=== PATIENT | female | born 1990 | race Caucasian/White ===

== ENCOUNTER 2016-12-12 14:50 | Emergency (ER) | payer MEDICAID, OTHER ==
[2016-12-12 14:58] VITALS: BP 115/77
--- NOTE | 2016-12-12 15:00 | ER Document Report ---
ED Medical Screen (RME) - General Stated Complaint: POSSIBLE SEIZURE Time seen by provider: 14:58 Mode of Arrival: Ambulatory Information source: Patient Notes: 26-year-old female presents to ED for numbness and tingling to her hands and face with a history of seizures noncompliant with her seizure medicines due to the way it feels. Tapping feeling in her head for 2 weeks. And she felt weak today which brought her into the emergency room. Patient states she's had a hysterectomy I have greeted and performed a rapid initial assessment of this patient. A comprehensive ED assessment and evaluation of the patient, analysis of test results and completion of medical decision making process will be conducted by an additional ED providers. TRAVEL OUTSIDE OF THE [place] IN LAST 30 DAYS: No - Related Data Allergies/Adverse Reactions: nitrofurantoin [From Macrobid] Allergy (Mild, Verified 12/12/16 14:58) Generalized Itching nitrofurantoin macrocrystalline [From Macrobid] Allergy (Mild, Verified 14:58) Generalized Itching Penicillins Allergy (Mild, Verified 12/12/16 14:58) Generalized Itching promethazine HCl [From Phenergan] Allergy (Mild, Verified 12/12/16 14:58) Generalized Itching amoxicillin [Amoxicillin] Allergy (Verified 12/12/16 14:58) Generalized Itching Past Medical History - Social History Chew tobacco use (# tins/day): No Frequency of alcohol use: None Drug Abuse: None Neurological Medical History: Reports: Hx Migraine, Hx Seizures Renal/ Medical History: Reports: Hx Kidney Stones, Hx Ovarian Cysts - 2012. Denies: Hx Peritoneal Dialysis GI Medical History: Reports: Hx Gastroesophageal Reflux Disease, Hx Irritable Bowel - for 5 years Psychiatric Medical History: Reports: Hx Anxiety, Hx Depression, Hx Post Traumatic Stress Disorder - severe panic disorder Past Surgical History: Reports: Hx Section - x2, Hx Cholecystectomy - 2010, Hx Hysterectomy, Hx Kidney (Renal Surgery) - nephrostomy tube, Hx Tonsillectomy - 13 yo - Immunizations Immunizations up to date: Yes Hx Diphtheria, Pertussis, Tetanus Vaccination: Yes
[2016-12-12 15:33] LABS: ABSOLUTE BASOPHILS # (AUTO) 0.1 10^3/uL (0.0-0.2); ABSOLUTE EOSINOPHILS # (AUTO) 0.3 10^3/uL (0.0-0.6); ABSOLUTE LYMPHOCYTES (AUTO) 2.9 10^3/uL (0.5-4.7); ABSOLUTE MONOCYTES (AUTO) 0.4 10^3/uL (0.1-1.4); BASOPHILS % (AUTO) 0.7 % (0-2); EOSINOPHILS % (AUTO) 4.2 % (0-6); HEMATOCRIT 44.7 % (36.0-47.0); HEMOGLOBIN 15.1 g/dL (12.0-15.5); HGB HCT DIFFERENCE 0.6; LYMPHOCYTES % (AUTO) 37.1 % (13-45); MEAN CORPUSCULAR HEMOGLOBIN 32.2 pg (27.0-33.4); MEAN CORPUSCULAR HGB CONC 33.9 g/dL (32.0-36.0); MEAN CORPUSCULAR VOLUME 95 fl (80-97); MONOCYTES % (AUTO) 5.7 % (3-13); RED CELL DISTRIBUTION WIDTH 13.1 % (11.5-14.0); SEGMENTED NEUTROPHILS % (AUTO) 52.3 % (42-78); WHITE BLOOD COUNT 7.7 10^3/uL (4.0-10.5)
[2016-12-12 15:53] LABS: ALANINE AMINOTRANSFERASE 42 U/L (9-52); ALBUMIN 4.8 g/dL (3.5-5.0); ALKALINE PHOSPHATASE 80 U/L (38-126); ANION GAP 12 (5-19); ASPARTATE AMINO TRANSFERASE 33 U/L (14-36); BILIRUBIN,TOTAL 0.3 mg/dL (0.2-1.3); BLOOD UREA NITROGEN 14 mg/dL (7-20); CALCIUM 10.2 mg/dL (8.4-10.2); CARBON DIOXIDE 30 mmol/L (22-30); CHLORIDE 102 mmol/L (98-107); CREATININE RESULT 0.83 mg/dL (0.52-1.25); GLUCOSE 80 mg/dL (75-110); LIPASE 185.9 U/L (23-300); POTASSIUM 4.7 mmol/L (3.6-5.0); SODIUM 143.6 mmol/L (137-145); TOTAL PROTEIN 7.5 g/dL (6.3-8.2)
[2016-12-12] MEDS ORDERED: ACETAMINOPHEN 325 MG TABLET PO ONE (16:09)
[2016-12-12 17:20] LABS: APPEARANCE,URINE SLIGHTLY-CLOUDY; BILIRUBIN,URINE NEGATIVE (NEGATIVE); GLUCOSE, URINE NEGATIVE (NEGATIVE); KETONES,URINE NEGATIVE (NEGATIVE); LEUKOCYTE ESTERASE,URINE NEGATIVE (NEGATIVE); NITRITE,URINE NEGATIVE (NEGATIVE); PROTEIN,URINE NEGATIVE (NEGATIVE); UROBILINOGEN,URINE NEGATIVE mg/dL (<2.0)
--- NOTE | 2016-12-12 18:09 | ER Document Report ---
Addendum entered and electronically signed by ARTURO DIAZ PA-C 12/12/16 19: 10: ED General - General Chief Complaint: Headache Stated Complaint: POSSIBLE SEIZURE Mode of Arrival: Ambulatory Notes: Patient is a 26-year-old female who presents emergency Department complaining of headache, numbness and tingling and lethargy for the past 4 weeks that has gotten worse over the past 2 weeks. She states her main complaint today is her headache that she feels is a sharp stabbing pain al over but the worst on her right taco eof her head with associated neck pain. Denies any light sensitivity , sound sensitivity or nausea or vomiting. She states that she does have a history of seizure disorder but cannot specify what type. She states that she has been noncompliant with her Depakote because she said it made her feel irritable. She has not been compliant with primary care or neurology follow-up. She is previously been treated emergency department for pseudoseizure and questionable medication overdose Otherwise past medical history is significant for anxiety Previous surgical procedures for hysterectomy TRAVEL OUTSIDE OF THE [place] IN LAST 30 DAYS: No - Related Data Allergies/Adverse Reactions: nitrofurantoin [From Macrobid] Allergy (Mild, Verified 12/12/16 14:58) Generalized Itching nitrofurantoin macrocrystalline [From Macrobid] Allergy (Mild, Verified 14:58) Generalized Itching Penicillins Allergy (Mild, Verified 12/12/16 14:58) Generalized Itching promethazine HCl [From Phenergan] Allergy (Mild, Verified 12/12/16 14:58) Generalized Itching amoxicillin [Amoxicillin] Allergy (Verified 12/12/16 14:58) Generalized Itching Course - Re-evaluation Re-evalutation: 12/12/16 19:02 Patient is a 26-year-old female who is hemodynamically stable, no acute distress and afebrile. Her complaints today are chronic and through further discussion with the patient finding that she has not been taking her gabapentin , hydroxyzine and Effexor as prescribed and is been taking them in different points throughout the day. She states that she has noticed her symptoms of drowsiness when she takes her hydroxyzine in the AM before class. Patient has been educated that he headache is likely due to tension consistent with he complaint of neck pain and tenderness to palaption on exam. Encouraged to follow up with neurology and PCP - Vital Signs Vital signs: Temp Pulse Resp BP Pulse Ox 98.0 F 85 18 115/77 99 12/12/16 14:56 12/12/16 14:56 12/12/16 14:56 12/12/16 14:56 12/12/16 14:56 - Laboratory Result Diagrams: 12/12/16 15:10 12/12/16 15:10 Physical Exam - Vital signs Vitals: Temp Pulse Resp BP Pulse Ox 98.0 F 85 18 115/77 99 12/12/16 14:56 12/12/16 14:56 12/12/16 14:56 12/12/16 14:56 12/12/16 14:56 - General General appearance: Appears well, Alert In distress: None - HEENT Head: Normocephalic, Atraumatic Eyes: Normal Conjunctiva: Normal Extraocular movements intact: Yes Eyelashes: Normal Pupils: PERRL Neck: Normal, Supple. No: Anterior cervical chain, Posterior cervical chain - Respiratory Respiratory status: No respiratory distress Chest status: Nontender Breath sounds: Normal Chest palpation: Normal - Cardiovascular Rhythm: Regular Heart sounds: Normal auscultation Pulses: Normal: Radial Normal capillary refill: Yes - Back Back: Normal, Tender - at paraspinous cervical muscle. No: CVA tenderness, Scars, Scoliosis, Wounds - Extremities General upper extremity: Normal inspection, Nontender, Normal color, Normal ROM , Normal strength, Normal temperature. No: Edema General lower extremity: Normal inspection, Nontender, Normal color, Normal ROM , Normal strength, Normal temperature, Normal weight bearing. No: Edema, Alfred' s sign - Neurological Neuro grossly intact: Yes Cognition: Normal Orientation: AAOx4 Eugenio Coma Scale Eye Opening: Spontaneous [place] Coma Scale Verbal: Oriented Eugenio Coma Scale Motor: Obeys Commands Eugenio Coma Scale Total: 15 Speech: Normal Cranial nerves: Normal Cerebellar coordination: Normal Motor strength normal: LUE, RUE, LLE, RLE Sensory: Normal - Psychological Associated symptoms: Normal affect, Normal mood Original Note: ED General - General Chief Complaint: Headache Stated Complaint: POSSIBLE SEIZURE Mode of Arrival: Ambulatory TRAVEL OUTSIDE OF THE [place] IN LAST 30 DAYS: No - Related Data Allergies/Adverse Reactions: nitrofurantoin [From Macrobid] Allergy (Mild, Verified 12/12/16 14:58) Generalized Itching nitrofurantoin macrocrystalline [From Macrobid] Allergy (Mild, Verified 14:58) Generalized Itching Penicillins Allergy (Mild, Verified 12/12/16 14:58) Generalized Itching promethazine HCl [From Phenergan] Allergy (Mild, Verified 12/12/16 14:58) Generalized Itching amoxicillin [Amoxicillin] Allergy (Verified 12/12/16 14:58) Generalized Itching Past Medical History - General Information source: Patient - Social History Smoking Status: Current Every Day Smoker Chew tobacco use (# tins/day): No Frequency of alcohol use: None Drug Abuse: None Family History: Reviewed & Not Pertinent Patient has suicidal ideation: No Patient has homicidal ideation: No Neurological Medical History: Reports: Hx Migraine, Hx Seizures Renal/ Medical History: Reports: Hx Kidney Stones, Hx Ovarian Cysts - 2012. Denies: Hx Peritoneal Dialysis GI Medical History: Reports: Hx Gastroesophageal Reflux Disease, Hx Irritable Bowel - for 5 years Psychiatric Medical History: Reports: Hx Anxiety, Hx Depression, Hx Post Traumatic Stress Disorder - severe panic disorder Past Surgical History: Reports: Hx Section - x2, Hx Cholecystectomy - 2011, Hx Hysterectomy, Hx Kidney (Renal Surgery) - nephrostomy tube, Hx Tonsillectomy - 13 yo - Immunizations Immunizations up to date: Yes Hx Diphtheria, Pertussis, Tetanus Vaccination: Yes Hx Pneumococcal Vaccination: 11/23/09 Physical Exam - Vital signs Vitals: Temp Pulse Resp BP Pulse Ox 98.0 F 85 18 115/77 99 12/12/16 14:56 12/12/16 14:56 12/12/16 14:56 12/12/16 14:56 12/12/16 14:56 Course - Vital Signs Vital signs: Temp Pulse Resp BP Pulse Ox 98.0 F 85 18 115/77 99 12/12/16 14:56 12/12/16 14:56 12/12/16 14:56 12/12/16 14:56 12/12/16 14:56 - Laboratory Result Diagrams: 12/12/16 15:10 12/12/16 15:10 Discharge - Discharge Clinical Impression: Headache Qualifiers: Headache type: unspecified Headache chronicity pattern: acute headache Intractability: intractable Qualified Code(s): R51 - Headache Condition: Good Disposition: HOME, SELF-CARE Instructions: Headache ([facility]) Additional Instructions: Please take your prescribed medication as discussed today Please follow up with neurology as soon as possible Referrals: GILSON HORN MD [EMERITUS] - Follow up as needed
== END 2016-12-12 18:12 | disposition home or self-care (01) ==
LOC: ER 14:50
DX: R51 Headache (principal); R20.0 Anesthesia of skin; F17.210 Nicotine dependence, cigarettes, uncomplicated
CPT/HCPCS: 36415; 80053; 81001; 83690; 84703; 85025; 99284

== ENCOUNTER 2017-01-18 22:00 | Emergency (ER) | payer MEDICAID ==
[2017-01-18 22:50] LABS: ABSOLUTE EOSINOPHILS # (AUTO) 0.2 10^3/uL (0.0-0.6); ABSOLUTE MONOCYTES (AUTO) 0.5 10^3/uL (0.1-1.4); ABSOLUTE NEUT (AUTO) 2.9 10^3/uL (1.7-8.2); BASOPHILS % (AUTO) 0.4 % (0-2); EOSINOPHILS % (AUTO) 2.7 % (0-6); HEMATOCRIT 37.1 % (36.0-47.0); HEMOGLOBIN 12.7 g/dL (12.0-15.5); MEAN CORPUSCULAR HEMOGLOBIN 32.6 pg (27.0-33.4); MEAN CORPUSCULAR HGB CONC 34.3 g/dL (32.0-36.0); MEAN CORPUSCULAR VOLUME 95 fl (80-97); MONOCYTES % (AUTO) 8.2 % (3-13); RED BLOOD COUNT 3.92 10^6/uL (3.72-5.28); RED CELL DISTRIBUTION WIDTH 12.9 % (11.5-14.0); SEGMENTED NEUTROPHILS % (AUTO) 43.7 % (42-78); WHITE BLOOD COUNT 6.6 10^3/uL (4.0-10.5)
[2017-01-18 23:04] LABS: ALANINE AMINOTRANSFERASE 22 U/L (9-52); ALBUMIN 3.6 g/dL (3.5-5.0); ALKALINE PHOSPHATASE 64 U/L (38-126); ANION GAP 7 (5-19); ASPARTATE AMINO TRANSFERASE 12 U/L (14-36); BILIRUBIN,TOTAL 0.5 mg/dL (0.2-1.3); BLOOD UREA NITROGEN 10 mg/dL (7-20); CALCIUM 9.2 mg/dL (8.4-10.2); CARBON DIOXIDE 28 mmol/L (22-30); CHLORIDE 108 mmol/L (98-107); CREATININE RESULT 0.74 mg/dL (0.52-1.25); GLUCOSE 85 mg/dL (75-110); LIPASE 180.8 U/L (23-300); SODIUM 143.3 mmol/L (137-145)
[2017-01-19] MEDS ORDERED: MORPHINE SULFATE 10 MG/ML INJ IV ONE ×2 (00:41→03:05)
[2017-01-19] MEDS ORDERED: ONDANSETRON HCL INJ/PF 4 MG/2 ML SDV IV ONE (00:41)
[2017-01-19] MEDS ORDERED: NORMAL SALINE 1000 ML 1,000 ML IV PRN (00:41)
--- NOTE | 2017-01-19 00:44 | ER Document Report ---
ED GI/ - General Chief Complaint: Abdominal Pain Stated Complaint: NAUSEA Time seen by provider: 00:42 Mode of Arrival: Medic Information source: Patient TRAVEL OUTSIDE OF THE [place] IN LAST 30 DAYS: No - HPI Patient complains to provider of: Abdominal pain Onset: Other - 3 days Timing/Duration: Persistent, Worse Quality of pain: Sharp, Stabbing Severity at maximum: Severe Severity in ED: Severe Pain Level: 5 Location: RLQ Associated symptoms: Chills, Loss of appetite, Nausea Exacerbated by: Movement Relieved by: Denies Similar symptoms previously: No Recently seen / treated by doctor: No Notes: 01/19/17 00:43 Patient is a 26-year-old female presenting to the emergency room complaining of right-sided lower abdominal pain with nausea and lack of appetite times the past 3 days, worsening this evening, she denies any dysuria or hematuria, last bowel movement was today and normal, she has not vomited, she denies any vaginal discharge or irregular bleeding, has a history of partial hysterectomy, cholecystectomy, she denies a history of similar symptoms previously, states it is painful to walk, and when her boyfriend tried to push on her abdomen it hurt more when he let go, last meal was around 4 PM when she tried to drink some brought but this made her feel worse - Related Data Allergies/Adverse Reactions: nitrofurantoin [From Macrobid] Allergy (Mild, Verified 01/18/17 22:12) Generalized Itching nitrofurantoin macrocrystalline [From Macrobid] Allergy (Mild, Verified 22:12) Generalized Itching Penicillins Allergy (Mild, Verified 01/18/17 22:12) Generalized Itching promethazine HCl [From Phenergan] Allergy (Mild, Verified 01/18/17 22:12) Generalized Itching amoxicillin [Amoxicillin] Allergy (Verified 01/18/17 22:12) Generalized Itching Past Medical History - General Information source: Patient - Social History Smoking Status: Current Every Day Smoker Frequency of alcohol use: None Drug Abuse: Marijuana Family History: Reviewed & Not Pertinent Patient has suicidal ideation: No Patient has homicidal ideation: No Neurological Medical History: Reports: Hx Migraine, Hx Seizures Renal/ Medical History: Reports: Hx Kidney Stones, Hx Ovarian Cysts - 2012. Denies: Hx Peritoneal Dialysis GI Medical History: Reports: Hx Gastroesophageal Reflux Disease, Hx Irritable Bowel - for 5 years Psychiatric Medical History: Reports: Hx Anxiety, Hx Depression, Hx Post Traumatic Stress Disorder - severe panic disorder Past Surgical History: Reports: Hx Section - x2, Hx Cholecystectomy - 2011, Hx Hysterectomy, Hx Kidney (Renal Surgery) - nephrostomy tube, Hx Tonsillectomy - 13 yo - Immunizations Immunizations up to date: Yes Hx Diphtheria, Pertussis, Tetanus Vaccination: Yes Hx Pneumococcal Vaccination: 11/23/09 Review of Systems - Review of Systems Constitutional: Chills EENT: No symptoms reported Cardiovascular: No symptoms reported Respiratory: No symptoms reported Gastrointestinal: See HPI Genitourinary: No symptoms reported Female Genitourinary: No symptoms reported Musculoskeletal: No symptoms reported Skin: No symptoms reported Hematologic/Lymphatic: No symptoms reported Neurological/Psychological: No symptoms reported -: Yes All other systems reviewed and negative Physical Exam - Vital signs Vitals: Temp Pulse Resp BP Pulse Ox 97.8 F 85 18 96/65 L 96 01/18/17 22:16 01/18/17 22:16 01/18/17 22:16 01/18/17 22:16 01/18/17 22:16 Interpretation: Hypotensive - General General appearance: Alert In distress: Mild - Appears in pain - HEENT Head: Normocephalic, Atraumatic Eyes: Normal Pupils: PERRL - Respiratory Respiratory status: No respiratory distress Chest status: Nontender Breath sounds: Normal Chest palpation: Normal - Cardiovascular Rhythm: Regular Heart sounds: Normal auscultation Murmur: No - Abdominal Inspection: Normal Distension: No distension Bowel sounds: Normal Tenderness: Tender, McBurney's point, Guarding, Rebound Organomegaly: No organomegaly - Back Back: Normal, Nontender - Extremities General upper extremity: Normal inspection, Nontender, Normal color, Normal ROM , Normal temperature General lower extremity: Normal inspection, Nontender, Normal color, Normal ROM , Normal temperature, Normal weight bearing. No: Alfred's sign - Neurological Neuro grossly intact: Yes Cognition: Normal Orientation: AAOx4 Eugenio Coma Scale Eye Opening: Spontaneous [place] Coma Scale Verbal: Oriented Eugenio Coma Scale Motor: Obeys Commands [place] Coma Scale Total: 15 Speech: Normal Motor strength normal: LUE, RUE, LLE, RLE Sensory: Normal - Psychological Associated symptoms: Normal affect, Normal mood - Skin Skin Temperature: Warm Skin Moisture: Dry Skin Color: Normal Course - Re-evaluation Re-evalutation: 01/19/17 04:55 Lab and imaging findings discussed with patient at bedside, she does also report some swelling to bilateral facial cheeks from recent piercing she had placed which she subsequently removed, states she had some purulent discharge when she removed the piercings, patient will be placed on antibiotics for this and for symptoms consistent with mild urinary tract infection, she will be discharged with pain medication as well as nausea medication and information for follow-up, advised to return if symptoms worsen, patient acknowledges understanding and agreement with this plan - Vital Signs Vital signs: Temp Pulse Resp BP Pulse Ox 98.2 F 87 16 111/65 100 01/19/17 03:44 01/19/17 03:44 01/19/17 03:44 01/19/17 03:44 01/19/17 03:44 - Laboratory Result Diagrams: 01/18/17 22:10 01/18/17 22:10 Laboratory results interpreted by me: 01/18/17 01/19/17 22:10 01:30 Chloride 108 H AST 12 L Total Protein 6.0 L Urine Blood SMALL H Ur Leukocyte Esterase TRACE H - Diagnostic Test Radiology reviewed: Image reviewed, Reports reviewed Discharge - Discharge Clinical Impression: Nausea, Facial abscess Abdominal pain Qualifiers: Abdominal location: right lower quadrant Qualified Code(s): R10.31 - Right lower quadrant pain Condition: Stable Disposition: HOME, SELF-CARE Instructions: Abdominal Pain ([facility]), Antinausea Medication ([facility]), Trimethoprim- Sulfa ([facility]), Abscess ([facility]) Additional Instructions: Follow up with your primary care provider in one to 2 days. Return to the emergency room immediately if symptoms worsen or any additional concerns. Prescriptions: Ondansetron [Zofran Odt 4 mg Tablet] 1 - 2 tab PO Q4H #10 tab.rapdis Oxycodone HCl/Acetaminophen [Percocet 5-325 mg Tablet] 1 - 2 tab PO ASDIR PRN # 15 tablet PRN Reason: Sulfamethoxazole/Trimethoprim [Bactrim Ds Tablet] 1 each PO BID #20 tablet Forms: Return to Work
[2017-01-19] MEDS ORDERED: DIPHENHYDRAMINE HCL 50 MG/ML VIAL IV ONE ×3 (00:59→04:36)
[2017-01-19 01:58] LABS: APPEARANCE,URINE CLOUDY; BILIRUBIN,URINE NEGATIVE (NEGATIVE); GLUCOSE, URINE NEGATIVE (NEGATIVE); KETONES,URINE NEGATIVE (NEGATIVE); LEUKOCYTE ESTERASE,URINE TRACE (NEGATIVE); NITRITE,URINE NEGATIVE (NEGATIVE); PROTEIN,URINE NEGATIVE (NEGATIVE); URINE SPECIFIC GRAVITY 1.015; UROBILINOGEN,URINE NEGATIVE mg/dL (<2.0)
[2017-01-19] MEDS ORDERED: HYDROMORPHONE HCL INJ/PF 2 MG/ML AMPULE IV ONE (04:03)
[2017-01-19] MEDS ORDERED: FAMOTIDINE INJ/PF 20 MG/2 ML SDV IV ONE (04:36)
[2017-01-19] MEDS ORDERED: SULFAMETHOXAZOLE/TRIMETHOPRIM 800-160 MG TABLET PO ONE (04:54)
[2017-01-19] MEDS ORDERED: ONDANSETRON ODT 4 MG TAB (6 TAB/DSPK) PO PRN (04:54)
[2017-01-19] MEDS ORDERED: HYDROCODONE/ACETAMINOPHEN 5-325 MG 6 TAB/DSPK PO PRN (04:54)
[2017-01-19 05:11] VITALS: BP 127/76
== END 2017-01-19 05:11 | disposition home or self-care (01) ==
LOC: ER 22:00
DX: R10.31 Right lower quadrant pain (principal); R11.0 Nausea; L02.01 Cutaneous abscess of face; R68.83 Chills (without fever); R63.0 Anorexia; F17.200 Nicotine dependence, unspecified, uncomplicated; Z90.49 Acquired absence of other specified parts of digestive tract; Z90.711 Acquired absence of uterus with remaining cervical stump; Z88.1 Allergy status to other antibiotic agents; Z88.0 Allergy status to penicillin; Z88.8 Allergy status to other drugs, medicaments and biological substances; Z87.442 Personal history of urinary calculi; Z87.42 Personal history of other diseases of the female genital tract; Z87.19 Personal history of other diseases of the digestive system
CPT/HCPCS: 96376; 99284; 96361; 96374; 96375; 36415; 83690; 84703; 85025; 80053; 81001; 74177; J1200; J2270; J1170; J2405; J3490; J7030; S0028

== ENCOUNTER 2017-03-31 13:25 | Emergency (ER) | payer MEDICAID ==
--- NOTE | 2017-03-31 15:06 | ER Document Report ---
ED Medical Screen (RME) - General Chief Complaint: Mouth Problem Stated Complaint: NECK AND MOUTH PAIN Time Seen by Provider: 03/31/17 15:04 Mode of Arrival: Ambulatory Information source: Patient Notes: This is a 27-year-old female with a history of ADHD and depression who presents to the emergency room with generalized fatigue, sore throat, body aches, chest wall pain for the past several weeks. The patient states that she is awaiting a neurology consult for workup of MS. She states that she's been having pain in the mouth and below the tongue. She denies any fever. She denies any vaginal discharge. She states that she's been so weak she's been fainting several times in the past few weeks. TRAVEL OUTSIDE OF THE [place] IN LAST 30 DAYS: No - Related Data Allergies/Adverse Reactions: nitrofurantoin [From Macrobid] Allergy (Mild, Verified 03/31/17 13:29) Generalized Itching nitrofurantoin macrocrystalline [From Macrobid] Allergy (Mild, Verified 13:29) Generalized Itching Penicillins Allergy (Mild, Verified 03/31/17 13:29) Generalized Itching promethazine HCl [From Phenergan] Allergy (Mild, Verified 03/31/17 13:29) Generalized Itching amoxicillin [Amoxicillin] Allergy (Verified 03/31/17 13:29) Generalized Itching Past Medical History Neurological Medical History: Reports: Hx Migraine, Hx Seizures Renal/ Medical History: Reports: Hx Kidney Stones, Hx Ovarian Cysts - 2012. Denies: Hx Peritoneal Dialysis GI Medical History: Reports: Hx Gastroesophageal Reflux Disease, Hx Irritable Bowel - for 5 years Psychiatric Medical History: Reports: Hx Anxiety, Hx Depression, Hx Post Traumatic Stress Disorder - severe panic disorder Past Surgical History: Reports: Hx Section - x2, Hx Cholecystectomy - 2010, Hx Hysterectomy, Hx Kidney (Renal Surgery) - nephrostomy tube, Hx Tonsillectomy - 13 yo - Immunizations Immunizations up to date: Yes Hx Diphtheria, Pertussis, Tetanus Vaccination: Yes Physical Exam - Vital signs Vitals: Temp Pulse Resp BP Pulse Ox 98.2 F 96 18 138/77 H 98 03/31/17 13:29 03/31/17 13:29 03/31/17 13:29 03/31/17 13:29 03/31/17 13:29 Course - Vital Signs Vital signs: Temp Pulse Resp BP Pulse Ox 98.2 F 96 18 138/77 H 98 03/31/17 13:29 03/31/17 13:29 03/31/17 13:29 03/31/17 13:29 03/31/17 13:29
[2017-03-31 15:29] LABS: ABSOLUTE EOSINOPHILS # (AUTO) 0.3 10^3/uL (0.0-0.6); ABSOLUTE LYMPHOCYTES (AUTO) 2.2 10^3/uL (0.5-4.7); ABSOLUTE MONOCYTES (AUTO) 0.5 10^3/uL (0.1-1.4); ABSOLUTE NEUT (AUTO) 4.2 10^3/uL (1.7-8.2); BASOPHILS % (AUTO) 0.5 % (0-2); HEMATOCRIT 44.9 % (36.0-47.0); HEMOGLOBIN 15.5 g/dL (12.0-15.5); HGB HCT DIFFERENCE 1.6; MEAN CORPUSCULAR HEMOGLOBIN 34.1 pg (27.0-33.4); MEAN CORPUSCULAR HGB CONC 34.5 g/dL (32.0-36.0); MEAN CORPUSCULAR VOLUME 99 fl (80-97); MONOCYTES % (AUTO) 7.3 % (3-13); RED BLOOD COUNT 4.54 10^6/uL (3.72-5.28); RED CELL DISTRIBUTION WIDTH 13.7 % (11.5-14.0); SEGMENTED NEUTROPHILS % (AUTO) 58.2 % (42-78); WHITE BLOOD COUNT 7.2 10^3/uL (4.0-10.5)
[2017-03-31 15:39] LABS: AMORPHOUS SEDIMENT,URINE TRACE /HPF; APPEARANCE,URINE SLIGHTLY-CLOUDY; BILIRUBIN,URINE NEGATIVE (NEGATIVE); GLUCOSE, URINE NEGATIVE (NEGATIVE); KETONES,URINE NEGATIVE (NEGATIVE); LEUKOCYTE ESTERASE,URINE MODERATE (NEGATIVE); NITRITE,URINE NEGATIVE (NEGATIVE); PROTEIN,URINE NEGATIVE (NEGATIVE); URINE SPECIFIC GRAVITY 1.012; UROBILINOGEN,URINE NEGATIVE mg/dL (<2.0)
[2017-03-31 15:52] LABS: ALANINE AMINOTRANSFERASE 27 U/L (9-52); ALBUMIN 4.2 g/dL (3.5-5.0); ALKALINE PHOSPHATASE 79 U/L (38-126); ANION GAP 12 (5-19); ASPARTATE AMINO TRANSFERASE 14 U/L (14-36); BILIRUBIN,DIRECT 0.2 mg/dL (0.0-0.4); BILIRUBIN,TOTAL 0.3 mg/dL (0.2-1.3); BLOOD UREA NITROGEN 19 mg/dL (7-20); CALCIUM 10.3 mg/dL (8.4-10.2); CARBON DIOXIDE 28 mmol/L (22-30); CHLORIDE 103 mmol/L (98-107); CREATININE RESULT 0.92 mg/dL (0.52-1.25); GLUCOSE 88 mg/dL (75-110); POTASSIUM 4.3 mmol/L (3.6-5.0); SODIUM 142.7 mmol/L (137-145); TOTAL PROTEIN 6.9 g/dL (6.3-8.2)
[2017-03-31] MEDS ORDERED: NORMAL SALINE 1000 ML 1,000 ML IV ONE (15:57)
[2017-03-31] MEDS ORDERED: KETOROLAC TROMETHAMINE INJ/PF 30 MG/1 ML SDV IV ONE (15:57)
--- NOTE | 2017-03-31 16:02 | ER Document Report ---
ED Oral Problem - General Chief Complaint: Mouth Problem Stated Complaint: NECK AND MOUTH PAIN Time Seen by Provider: 03/31/17 15:04 Mode of Arrival: Ambulatory Information source: Patient Notes: Patient is a 27-year-old female who presents to the ER today for multiple generalized complaints including generalized weakness, falling multiple times in the past month, she does not black out or lose consciousness during falling, but instead just falls and then feels weak until she can get back up. She states that her back "locks up" when she tries to get back up. She also complains of mouth pain and "peeling skin" inside of her mouth. She also complains of blood in her urine. She also complains of painful lymph nodes in her neck and armpits and groin that have been there for "a while." She states that MS, lupus and lymphoma run in her family. She also complains of chest pain and "rib pain" worse when breathing. She denies any shortness of breath. She has no past medical history. TRAVEL OUTSIDE OF THE [place] IN LAST 30 DAYS: No - Related Data Allergies/Adverse Reactions: nitrofurantoin [From Macrobid] Allergy (Mild, Verified 03/31/17 13:29) Generalized Itching nitrofurantoin macrocrystalline [From Macrobid] Allergy (Mild, Verified 13:29) Generalized Itching Penicillins Allergy (Mild, Verified 03/31/17 13:29) Generalized Itching promethazine HCl [From Phenergan] Allergy (Mild, Verified 03/31/17 13:29) Generalized Itching amoxicillin [Amoxicillin] Allergy (Verified 03/31/17 13:29) Generalized Itching Past Medical History - General Information source: Patient - Social History Smoking Status: Unknown if Ever Smoked Family History: Reviewed & Not Pertinent Patient has suicidal ideation: No Patient has homicidal ideation: No Neurological Medical History: Reports: Hx Migraine, Hx Seizures Renal/ Medical History: Reports: Hx Kidney Stones, Hx Ovarian Cysts - 2012. Denies: Hx Peritoneal Dialysis GI Medical History: Reports: Hx Gastroesophageal Reflux Disease, Hx Irritable Bowel - for 5 years Psychiatric Medical History: Reports: Hx Anxiety, Hx Depression, Hx Post Traumatic Stress Disorder - severe panic disorder Past Surgical History: Reports: Hx Section - x2, Hx Cholecystectomy - 2010, Hx Hysterectomy, Hx Kidney (Renal Surgery) - nephrostomy tube, Hx Tonsillectomy - 13 yo - Immunizations Immunizations up to date: Yes Hx Diphtheria, Pertussis, Tetanus Vaccination: Yes Hx Pneumococcal Vaccination: 11/23/09 Review of Systems - Review of Systems Constitutional: See HPI EENT: See HPI Cardiovascular: See HPI Respiratory: See HPI Gastrointestinal: No symptoms reported Genitourinary: No symptoms reported Female Genitourinary: No symptoms reported Musculoskeletal: No symptoms reported Skin: No symptoms reported Hematologic/Lymphatic: See HPI Neurological/Psychological: See HPI Physical Exam - Vital signs Vitals: Temp Pulse Resp BP Pulse Ox 98.2 F 96 18 138/77 H 98 03/31/17 13:29 03/31/17 13:29 03/31/17 13:29 03/31/17 13:29 03/31/17 13:29 - Notes Notes: PHYSICAL EXAMINATION: GENERAL: well appearing, in no acute distress. HEAD: Atraumatic, normocephalic. EYES: Pupils equal round and reactive to light, extraocular movements intact, sclera anicteric, conjunctiva are normal. ENT: ear canals without erythema or foreign body, TMs pearly alas with good bony landmarks, nares patent, oropharynx clear without exudates. Moist mucous membranes. NECK: Normal range of motion, supple without lymphadenopathy LUNGS: CTAB and equal. No wheezes rales or rhonchi. HEART: Regular rate and rhythm without murmurs ABDOMEN: Soft, no tenderness. No guarding, no rebound BACK: no vertebral tenderness, normal ROM GI/: no CVA tenderness EXTREMITIES: Normal range of motion, no pitting edema. No cyanosis. NEUROLOGICAL: normal rhomberg testing, good and equal strength bilaterally, normal heel to saunders testing, Cranial nerves grossly intact. Normal sensory/ motor exams. PSYCH: tearful, flat affect SKIN: Warm, Dry, normal turgor, no rashes or lesions noted Course - Re-evaluation Re-evalutation: 03/31/17 17:19 urinalysis reveals uti with small blood, leukocytes, and 54 WBC, other labwork is unremarkable today including negative mono test. WBC normal. pt to follow up with pcp outpatient. will treat with cipro She received IV dose of cipro in ER today. 03/31/17 17:19 03/31/17 17:20 03/31/17 17:30 03/31/17 18:13 03/31/17 18:13 Soft tissue x-ray of the neck reports a an unusual star-shaped object the level of the vocal cords of uncertain etiology. CT with IV contrast and soft tissues of the neck was performed, awaiting results. Chest x-ray was normal. 03/31/17 19:00 ct soft tissue neck reports no abnormality, that star shaped opacity was calcifications in laryngeal fold - Vital Signs Vital signs: Temp Pulse Resp BP Pulse Ox 98.1 F 65 16 118/75 97 03/31/17 19:07 03/31/17 19:07 03/31/17 19:07 03/31/17 19:07 03/31/17 19:07 - Laboratory Result Diagrams: 03/31/17 15:12 03/31/17 15:12 Laboratory results interpreted by me: 03/31/17 03/31/17 03/31/17 15:12 15:12 15:12 MCV 99 H MCH 34.1 H Calcium 10.3 H TSH Urine Blood SMALL H Ur Leukocyte Esterase MODERATE H 03/31/17 15:12 MCV MCH Calcium TSH 0.39 L Urine Blood Ur Leukocyte Esterase Discharge - Discharge Clinical Impression: Body aches UTI (urinary tract infection) Qualifiers: Urinary tract infection type: site unspecified Hematuria presence: with hematuria Qualified Code(s): N39.0 - Urinary tract infection, site not specified Fatigue Qualifiers: Fatigue type: unspecified Qualified Code(s): R53.83 - Other fatigue Condition: Stable Disposition: HOME, SELF-CARE Instructions: Urinary Tract Infection ([facility]) Additional Instructions: Return immediately for any new or worsening symptoms. Follow up with primary care provider, call tomorrow to make followup appointment. Prescriptions: Ketorolac Tromethamine [Toradol 10 mg Tablet] 10 mg PO Q6HP PRN #20 tablet PRN Reason: Ciprofloxacin HCl [Cipro 500 mg Tablet] 500 mg PO BID #14 tablet Ibuprofen [Motrin 800 mg Tablet] 800 mg PO Q8H PRN #30 tab PRN Reason: Lidocaine HCl [Lidocaine HCl Viscous] 15 ml OP Q4 PRN #30 ml PRN Reason: Forms: Return to Work Referrals: MALLY ADAME MD [Primary Care Provider] - Follow up as needed ANNAMARIE GAMING MD [ACTIVE STAFF] - Follow up as needed
[2017-03-31] MEDS ORDERED: NYSTATIN/DEXAMETH/DIPHEN SUSP 120 ML PO ONE (16:29)
[2017-03-31] MEDS ORDERED: CIPROFLOXACIN 200 MG/D5W RTU 100 ML IV ONE (16:29)
[2017-03-31 17:03] LABS: FREE T3 4.6 pg/mL (2.77-5.27)
[2017-03-31] MEDS ORDERED: OXYCODONE-ACETAMINOPHEN 5-325 MG TABLET PO ONE (18:11)
[2017-03-31] MEDS ORDERED: LIDOCAINE 2% VISCOUS SOLN 20 ML UDCUP PO ONE (18:12)
[2017-03-31] MEDS ORDERED: MAG HYDROX/AL HYDROX/SIMETH SUSP 30 ML UDCUP PO ONE (18:12)
[2017-03-31 19:16] VITALS: BP 118/75
== END 2017-03-31 19:20 | disposition home or self-care (01) ==
LOC: ER 13:25
DX: M79.1 Myalgia (principal); N39.0 Urinary tract infection, site not specified; R53.83 Other fatigue; M54.2 Cervicalgia; K13.79 Other lesions of oral mucosa; Z88.0 Allergy status to penicillin
CPT/HCPCS: 99284; 96361; 96375; 96365; 96366; 36415; 84439; 84443; 85025; 81025; 86308; 80053; 81001; 84481; 71020; 70360; 70491; J3490 ×3; J1885; J7030; J0744

== ENCOUNTER 2017-06-20 09:02 | Emergency (ER) | payer MEDICAID ==
[2017-06-20 09:09] VITALS: BP 145/101
--- NOTE | 2017-06-20 09:31 | ER Document Report ---
ED Medical Screen (RME) - General Chief Complaint: Chest Pain Stated Complaint: CHEST PAIN/BP PROBLEMS Time Seen by Provider: 06/20/17 09:24 TRAVEL OUTSIDE OF THE [place] IN LAST 30 DAYS: No - Related Data Allergies/Adverse Reactions: nitrofurantoin [From Macrobid] Allergy (Mild, Verified 06/20/17 09:09) Generalized Itching nitrofurantoin macrocrystalline [From Macrobid] Allergy (Mild, Verified 09:09) Generalized Itching Penicillins Allergy (Mild, Verified 06/20/17 09:09) Generalized Itching promethazine HCl [From Phenergan] Allergy (Mild, Verified 06/20/17 09:09) Generalized Itching amoxicillin [Amoxicillin] Allergy (Verified 06/20/17 09:09) Generalized Itching Past Medical History Neurological Medical History: Reports: Hx Migraine, Hx Seizures Renal/ Medical History: Reports: Hx Kidney Stones, Hx Ovarian Cysts - 2012. Denies: Hx Peritoneal Dialysis GI Medical History: Reports: Hx Gastroesophageal Reflux Disease, Hx Irritable Bowel - for 5 years Psychiatric Medical History: Reports: Hx Anxiety, Hx Depression, Hx Post Traumatic Stress Disorder - severe panic disorder Past Surgical History: Reports: Hx Section - x2, Hx Cholecystectomy - 2011, Hx Hysterectomy, Hx Kidney (Renal Surgery) - nephrostomy tube, Hx Tonsillectomy - 13 yo - Immunizations Immunizations up to date: Yes Hx Diphtheria, Pertussis, Tetanus Vaccination: Yes Physical Exam - Vital signs Vitals: Temp Pulse Resp BP Pulse Ox 97.8 F 93 16 145/101 H 100 06/20/17 09:08 06/20/17 09:08 06/20/17 09:08 06/20/17 09:08 06/20/17 09:08 Course - Vital Signs Vital signs: Temp Pulse Resp BP Pulse Ox 97.8 F 93 16 145/101 H 100 06/20/17 09:08 06/20/17 09:08 06/20/17 09:08 06/20/17 09:08 06/20/17 09:08
--- NOTE | 2017-06-20 09:35 | ER Document Report ---
ED General - General Chief Complaint: Chest Pain Stated Complaint: CHEST PAIN/BP PROBLEMS Time Seen by Provider: 06/20/17 09:24 TRAVEL OUTSIDE OF THE [place] IN LAST 30 DAYS: No - HPI Patient complains to provider of: Presents concerned that she had elevated blood pressure at her psychiatrist - Related Data Allergies/Adverse Reactions: nitrofurantoin [From Macrobid] Allergy (Mild, Verified 06/20/17 09:09) Generalized Itching nitrofurantoin macrocrystalline [From Macrobid] Allergy (Mild, Verified 09:09) Generalized Itching Penicillins Allergy (Mild, Verified 06/20/17 09:09) Generalized Itching promethazine HCl [From Phenergan] Allergy (Mild, Verified 06/20/17 09:09) Generalized Itching amoxicillin [Amoxicillin] Allergy (Verified 06/20/17 09:09) Generalized Itching Past Medical History - Social History Smoking Status: Current Every Day Smoker Family History: Reviewed & Not Pertinent Neurological Medical History: Reports: Hx Migraine, Hx Seizures Renal/ Medical History: Reports: Hx Kidney Stones, Hx Ovarian Cysts - 2012. Denies: Hx Peritoneal Dialysis GI Medical History: Reports: Hx Gastroesophageal Reflux Disease, Hx Irritable Bowel - for 5 years Psychiatric Medical History: Reports: Hx Anxiety, Hx Depression, Hx Post Traumatic Stress Disorder - severe panic disorder Past Surgical History: Reports: Hx Section - x2, Hx Cholecystectomy - 2010, Hx Hysterectomy, Hx Kidney (Renal Surgery) - nephrostomy tube, Hx Tonsillectomy - 13 yo - Immunizations Immunizations up to date: Yes Hx Diphtheria, Pertussis, Tetanus Vaccination: Yes Hx Pneumococcal Vaccination: 11/23/09 Review of Systems - Review of Systems Constitutional: No symptoms reported EENT: No symptoms reported Cardiovascular: See HPI Respiratory: No symptoms reported Gastrointestinal: No symptoms reported Genitourinary: No symptoms reported Female Genitourinary: No symptoms reported Musculoskeletal: No symptoms reported Skin: No symptoms reported Hematologic/Lymphatic: No symptoms reported Neurological/Psychological: No symptoms reported Physical Exam - Vital signs Vitals: Temp Pulse Resp BP Pulse Ox 97.8 F 93 16 145/101 H 100 06/20/17 09:08 06/20/17 09:08 06/20/17 09:08 06/20/17 09:08 06/20/17 09:08 Interpretation: Normal - General General appearance: Appears well, Alert - HEENT Head: Normocephalic, Atraumatic Eyes: Normal Pupils: PERRL - Respiratory Respiratory status: No respiratory distress Chest status: Nontender Breath sounds: Normal Chest palpation: Normal - Cardiovascular Rhythm: Regular Heart sounds: Normal auscultation Murmur: No - Abdominal Inspection: Normal Distension: No distension Bowel sounds: Normal Tenderness: Nontender Organomegaly: No organomegaly - Back Back: Normal, Nontender - Extremities General upper extremity: Normal inspection, Nontender, Normal color, Normal ROM , Normal temperature General lower extremity: Normal inspection, Nontender, Normal color, Normal ROM , Normal temperature, Normal weight bearing. No: Alfred's sign - Neurological Neuro grossly intact: Yes Cognition: Normal Orientation: AAOx4 [place] Coma Scale Eye Opening: Spontaneous Eugenio Coma Scale Verbal: Oriented [place] Coma Scale Motor: Obeys Commands Eugenio Coma Scale Total: 15 Speech: Normal Motor strength normal: LUE, RUE, LLE, RLE Sensory: Normal - Psychological Associated symptoms: Normal affect, Normal mood - Skin Skin Temperature: Warm Skin Moisture: Dry Skin Color: Normal Course - Re-evaluation Re-evalutation: 06/20/17 09:34 Edema no acute distress presents with vague complaints regarding blood pressure and subjective chest pain and anxiety. Patient EKG is very reassuring. Patient is no history of diabetes, hyperlipidemia, high cholesterol, young family heart attack. Patient PERC negative for pulmonary embolus as well - Vital Signs Vital signs: Temp Pulse Resp BP Pulse Ox 97.8 F 93 16 145/101 H 100 06/20/17 09:08 06/20/17 09:08 06/20/17 09:08 06/20/17 09:08 06/20/17 09:08 - EKG Interpretation by K[facility] EKG shows normal: Sinus rhythm - Sinus rhythm, normal CA, normal QRS no ST elevations or Discharge - Discharge Clinical Impression: Chest pain Qualifiers: Chest pain type: unspecified Qualified Code(s): R07.9 - Chest pain, unspecified Condition: Good Disposition: HOME, SELF-CARE Instructions: Chest Pain of Unclear Cause ([facility]) Additional Instructions: Up with your family doctor on Thursday Forms: Elevated Blood Pressure
--- NOTE | 2017-06-20 15:19 | EKG REPORT ---
SEVERITY:- NORMAL ECG - SINUS RHYTHM : Confirmed by: Bre Ward MD 20-Jun-2017 15:18:09
== END 2017-06-20 09:38 | disposition home or self-care (01) ==
LOC: ER 09:02
DX: R07.9 Chest pain, unspecified (principal); I10 Essential (primary) hypertension; F17.200 Nicotine dependence, unspecified, uncomplicated
CPT/HCPCS: 93005; 93010; 99284

== ENCOUNTER 2017-06-25 14:45 | Emergency (ER) | payer MEDICAID ==
[2017-06-25] MEDS ORDERED: NORMAL SALINE 1000 ML 1,000 ML IV PRN (15:05)
--- NOTE | 2017-06-25 15:09 | ER Document Report ---
ED Medical Screen (RME) - General Chief Complaint: Chest Pain Stated Complaint: CHEST PAIN Time Seen by Provider: 06/25/17 14:55 Mode of Arrival: Ambulatory Information source: Patient TRAVEL OUTSIDE OF THE [place] IN LAST 30 DAYS: No - HPI Patient complains to provider of: Advised weakness, chest pain, rapid heart rate , elevated potassium Onset: Last week Onset/Duration: Persistent Quality of pain: Achy Severity: Moderate Notes: 06/25/17 15:08 Patient is a 27-year-old female presenting to the emergency room complaining of elevated blood pressure, rapid heart rate, left-sided chest pain radiating into her neck and jaw, and an outpatient potassium measured at 7.7 - Related Data Allergies/Adverse Reactions: nitrofurantoin [From Macrobid] Allergy (Mild, Verified 06/25/17 15:06) Generalized Itching nitrofurantoin macrocrystalline [From Macrobid] Allergy (Mild, Verified 15:06) Generalized Itching Penicillins Allergy (Mild, Verified 06/25/17 15:06) Generalized Itching promethazine HCl [From Phenergan] Allergy (Mild, Verified 06/25/17 15:06) Generalized Itching amoxicillin [Amoxicillin] Allergy (Verified 06/25/17 15:06) Generalized Itching Past Medical History Neurological Medical History: Reports: Hx Migraine, Hx Seizures Renal/ Medical History: Reports: Hx Kidney Stones, Hx Ovarian Cysts - 2012. Denies: Hx Peritoneal Dialysis GI Medical History: Reports: Hx Gastroesophageal Reflux Disease, Hx Irritable Bowel - for 5 years Psychiatric Medical History: Reports: Hx Anxiety, Hx Depression, Hx Post Traumatic Stress Disorder - severe panic disorder Past Surgical History: Reports: Hx Section - x2, Hx Cholecystectomy - 2010, Hx Hysterectomy, Hx Kidney (Renal Surgery) - nephrostomy tube, Hx Tonsillectomy - 13 yo - Immunizations Immunizations up to date: Yes Hx Diphtheria, Pertussis, Tetanus Vaccination: Yes Physical Exam - Vital signs Vitals: Temp Pulse Resp BP Pulse Ox 98.5 F 138 H 16 133/84 H 99 06/25/17 14:50 06/25/17 14:50 06/25/17 14:50 06/25/17 14:50 06/25/17 14:50 Course - Vital Signs Vital signs: Temp Pulse Resp BP Pulse Ox 98.5 F 138 H 16 133/84 H 99 06/25/17 14:50 06/25/17 14:50 06/25/17 14:50 06/25/17 14:50 06/25/17 14:50
[2017-06-25 15:45] LABS: ABSOLUTE BASOPHILS # (AUTO) 0.1 10^3/uL (0.0-0.2); ABSOLUTE EOSINOPHILS # (AUTO) 0.2 10^3/uL (0.0-0.6); ABSOLUTE LYMPHOCYTES (AUTO) 1.9 10^3/uL (0.5-4.7); ABSOLUTE MONOCYTES (AUTO) 0.5 10^3/uL (0.1-1.4); ABSOLUTE NEUT (AUTO) 4.2 10^3/uL (1.7-8.2); BASOPHILS % (AUTO) 1.1 % (0-2); EOSINOPHILS % (AUTO) 2.4 % (0-6); HEMOGLOBIN 15.3 g/dL (12.0-15.5); HGB HCT DIFFERENCE 1.9; LYMPHOCYTES % (AUTO) 28.1 % (13-45); MEAN CORPUSCULAR HEMOGLOBIN 33.9 pg (27.0-33.4); MEAN CORPUSCULAR HGB CONC 34.9 g/dL (32.0-36.0); MEAN CORPUSCULAR VOLUME 97 fl (80-97); MONOCYTES % (AUTO) 7.4 % (3-13); RED BLOOD COUNT 4.52 10^6/uL (3.72-5.28); RED CELL DISTRIBUTION WIDTH 12.8 % (11.5-14.0); WHITE BLOOD COUNT 6.8 10^3/uL (4.0-10.5)
--- NOTE | 2017-06-25 15:52 | RADIOLOGY REPORT (SQ) ---
EXAM DESCRIPTION: CHEST SINGLE VIEW COMPLETED DATE/TIME: 06/25/2017 3:33 pm REASON FOR STUDY: cp COMPARISON: 03/31/2017. EXAM PARAMETERS: NUMBER OF VIEWS: One view. TECHNIQUE: Single frontal radiographic view of the chest acquired. RADIATION DOSE: NA LIMITATIONS: None. FINDINGS: LUNGS AND PLEURA: No opacities, masses or pneumothorax. No pleural effusion. MEDIASTINUM AND HILAR STRUCTURES: No masses. Contour normal. HEART AND VASCULAR STRUCTURES: Heart normal in size. Normal vasculature. BONES: No acute findings. HARDWARE: None in the chest. OTHER: No other significant finding. IMPRESSION: NO ACUTE RADIOGRAPHIC FINDING IN THE CHEST. TECHNICAL DOCUMENTATION: JOB ID: [id number]
[2017-06-25 16:29] LABS: FREE T3 3.66 pg/mL (2.77-5.27)
[2017-06-25 16:37] LABS: APPEARANCE,URINE SLIGHTLY-CLOUDY; BILIRUBIN,URINE NEGATIVE (NEGATIVE); GLUCOSE, URINE NEGATIVE (NEGATIVE); KETONES,URINE NEGATIVE (NEGATIVE); LEUKOCYTE ESTERASE,URINE NEGATIVE (NEGATIVE); NITRITE,URINE NEGATIVE (NEGATIVE); PROTEIN,URINE NEGATIVE (NEGATIVE); URINE SPECIFIC GRAVITY 1.017; UROBILINOGEN,URINE NEGATIVE mg/dL (<2.0)
[2017-06-25 16:43] LABS: THYROID STIMULATING HORMONE 1.24 uIU/mL (0.47-4.68)
[2017-06-25 16:51] LABS: URINE BARBITURATES SCREEN NEGATIVE; URINE METHADONE SCREEN NEGATIVE; URINE OPIATES LOW NEGATIVE; URINE PHENCYCLIDINE SCREEN NEGATIVE
[2017-06-25 16:52] LABS: ALANINE AMINOTRANSFERASE 28 U/L (9-52); ALBUMIN 4.3 g/dL (3.5-5.0); ALKALINE PHOSPHATASE 66 U/L (38-126); ANION GAP 10 (5-19); ASPARTATE AMINO TRANSFERASE 17 U/L (14-36); BILIRUBIN,DIRECT 0.2 mg/dL (0.0-0.4); BILIRUBIN,TOTAL 0.6 mg/dL (0.2-1.3); BLOOD UREA NITROGEN 18 mg/dL (7-20); CALCIUM 8.9 mg/dL (8.4-10.2); CARBON DIOXIDE 25 mmol/L (22-30); CHLORIDE 106 mmol/L (98-107); CREATINE KINASE 50 U/L (30-135); CREATININE RESULT 0.91 mg/dL (0.52-1.25); GLUCOSE 56 mg/dL (75-110); POTASSIUM 4.4 mmol/L (3.6-5.0)
[2017-06-25] MEDS ORDERED: NORMAL SALINE 1000 ML 1,000 ML IV ONE (17:19)
--- NOTE | 2017-06-25 17:19 | ER Document Report ---
ED General - General Chief Complaint: Chest Pain Stated Complaint: CHEST PAIN Time Seen by Provider: 06/25/17 14:55 Mode of Arrival: Ambulatory Notes: The patient is a 27-year-old female, past medical history anxiety, PTSD, presents from home with generalized weakness and feeling like her heart is racing. She is also having mild chest pain and felt tingling in her left neck. She had labs performed as an outpatient and her potassium was 7.5 and she has no history of kidney issues. She denies shortness of breath, leg swelling, nausea, vomiting, drug use, fevers, headache, cough, hemoptysis, OCP use, recent travel or surgery. TRAVEL OUTSIDE OF THE [place] IN LAST 30 DAYS: No - Related Data Allergies/Adverse Reactions: nitrofurantoin [From Macrobid] Allergy (Mild, Verified 06/25/17 15:06) Generalized Itching nitrofurantoin macrocrystalline [From Macrobid] Allergy (Mild, Verified 15:06) Generalized Itching Penicillins Allergy (Mild, Verified 06/25/17 15:06) Generalized Itching promethazine HCl [From Phenergan] Allergy (Mild, Verified 06/25/17 15:06) Generalized Itching amoxicillin [Amoxicillin] Allergy (Verified 06/25/17 15:06) Generalized Itching Home Medications: Current Home Medications Aspirin [Ecotrin 81 mg EC Tablet] 81 mg PO DAILY 06/25/17 [History] Clonazepam [Klonopin] 1 mg PO PRN PRN 06/25/17 [History] Clonidine HCl [Clonidine HCl ER] 0.1 mg PO DAILY 06/25/17 [History] Dextroamphetamine/Amphetamine [Adderall 15 mg Tablet] 1 tab PO TID 06/25/17 [ History] Lisinopril [Prinivil 2.5 mg Tablet] 2.5 mg PO DAILY 06/25/17 [History] Multivitamin [Multivitamins] 1 each PO DAILY 06/25/17 [History] Paroxetine HCl [Paxil 20 mg Tablet] 20 mg PO DAILY 06/25/17 [History] Past Medical History - General Information source: Patient - Social History Smoking Status: Current Every Day Smoker Chew tobacco use (# tins/day): No Frequency of alcohol use: None Drug Abuse: None Family History: Reviewed & Not Pertinent Neurological Medical History: Reports: Hx Migraine, Hx Seizures Renal/ Medical History: Reports: Hx Kidney Stones, Hx Ovarian Cysts - 2012. Denies: Hx Peritoneal Dialysis GI Medical History: Reports: Hx Gastroesophageal Reflux Disease, Hx Irritable Bowel - for 5 years Psychiatric Medical History: Reports: Hx Anxiety, Hx Depression, Hx Post Traumatic Stress Disorder - severe panic disorder Past Surgical History: Reports: Hx Section - x2, Hx Cholecystectomy - 2010, Hx Hysterectomy, Hx Kidney (Renal Surgery) - nephrostomy tube, Hx Tonsillectomy - 13 yo - Immunizations Immunizations up to date: Yes Hx Diphtheria, Pertussis, Tetanus Vaccination: Yes Hx Pneumococcal Vaccination: 11/23/09 Review of Systems - Review of Systems Notes: REVIEW OF SYSTEMS: CONSTITUTIONAL: -fevers, -chills EENT: -eye pain, -difficulty swallowing, -nasal congestion CARDIOVASCULAR: +chest pain, -syncope, +palpitations RESPIRATORY: -cough, -SOB GASTROINTESTINAL: -abdominal pain, - nausea, -vomiting, -diarrhea GENITOURINARY: -dysuria, -hematuria MUSCULOSKELETAL: -back pain, -neck pain SKIN: -rash or skin lesions. HEMATOLOGIC: -easy bruising or bleeding. LYMPHATIC: -swollen, enlarged glands. NEUROLOGICAL: -altered mental status or loss of consciousness, -headache, - neurologic symptoms PSYCHIATRIC: -anxiety, -depression. ALL OTHER SYSTEMS REVIEWED AND NEGATIVE. Physical Exam - Vital signs Vitals: Temp Pulse Resp BP Pulse Ox 98.5 F 138 H 16 133/84 H 99 06/25/17 14:50 06/25/17 14:50 06/25/17 14:50 06/25/17 14:50 06/25/17 14:50 - Notes Notes: PHYSICAL EXAMINATION: GENERAL: Well-appearing, well-nourished and in no acute distress. HEAD: Atraumatic, normocephalic. EYES: Pupils equal round and reactive to light, extraocular movements intact, sclera anicteric, conjunctiva are normal. ENT: nares patent, oropharynx clear without exudates. Moist mucous membranes. NECK: Normal range of motion, supple without lymphadenopathy LUNGS: Breath sounds clear to auscultation bilaterally and equal. No wheezes rales or rhonchi. HEART: Regular rate and rhythm without murmurs ABDOMEN: Soft, nontender, normoactive bowel sounds. No guarding, no rebound. No masses appreciated. EXTREMITIES: Normal range of motion, no pitting or edema. No cyanosis. NEUROLOGICAL: Cranial nerves grossly intact. Normal speech, normal gait. Normal sensory and motor exams. PSYCH: Normal mood, normal affect. SKIN: Warm, Dry, normal turgor, no rashes or lesions noted. Course - Re-evaluation Re-evalutation: Patient appears well. Her tachycardia resolved after fluids she is asymptomatic. EKG and troponin do not show any evidence of ACS. D-dimer performed due to tachycardia, which was negative. Rest of blood work is unremarkable, other than slight hyperglycemia and patient provided with fluid. 06/25/17 19:03 Pt's slight hyperglycemia improved after eating. Recheck was 200s. Her blood pressure improved after IV fluids and eating. She was recently started on lisinopril 2 days ago and she takes clonidine at night. Told her to hold her lisinopril and clonidine due to her slight hypotension. She is not orthostatic and has no signs of infections to suggest sepsis. Will discharge patient home with close follow-up with her primary care physician. Given strict return precautions and she understands. - Vital Signs Vital signs: Temp Pulse Resp BP Pulse Ox 98.5 F 138 H 19 98/61 L 100 06/25/17 14:50 06/25/17 14:50 06/25/17 18:54 06/25/17 18:54 06/25/17 18:54 - Laboratory Result Diagrams: 06/25/17 15:25 06/25/17 16:10 Laboratory results interpreted by me: 06/25/17 06/25/17 06/25/17 15:25 16:00 16:10 MCH 33.9 H Glucose 56 L Urine Ascorbic Acid 20 H - Diagnostic Test Radiology reviewed: Image reviewed, Reports reviewed Radiology results interpreted by me: CXR: NAD - EKG Interpretation by Me EKG shows normal: Sinus rhythm, [place], Intervals, QRS Complexes, ST-T Waves Rate: Tachycardia Discharge - Discharge Clinical Impression: Tachycardia Chest pain Qualifiers: Chest pain type: unspecified Qualified Code(s): R07.9 - Chest pain, unspecified Condition: Stable Disposition: HOME, SELF-CARE Additional Instructions: The blood work looking at your kidneys, electrolytes, thyroid and hemoglobin were unremarkable today. Eat plenty of food to help with your slightly low blood sugar. Do not take her lisinopril and clonidine until you see your primary care physician. These 2 medications are dropping your blood pressure too much. Follow-up with your primary care physician for further evaluation and treatment. CHEST PAIN OF UNCLEAR CAUSE: The exact cause of your chest pain isn't clear. Fortunately, there is no evidence of a dangerous medical condition. Further testing may be required to find the source of the pain. Most often, we find that this pain is coming from the chest wall -- the muscles or rib joints in the chest. But chest pain can come from the lung and lung lining, the esophagus, the heart valves or heart lining, and even the stomach or gallbladder. Rest. Eat lightly until the pain is gone. We may prescribe medicine for pain and inflammation. You should call the physician immediately if the pain radiates to the shoulder, jaw or arms; if you start to run a fever or develop a cough; or if you develop shortness of breath, or other new or alarming symptoms. NORMAL EXAM AND WORKUP: At this time, your examination and workup show no significant abnormality. No significant abnormal physical findings were noted. All laboratory, EKG, and imaging (x-ray, CT scans, ultrasound) studies that were ordered show no significant abnormality. Although your examination and all studies that were ordered showed no significant abnormal finding, there are no examinations and no studies that are 100% accurate. There is always the possibility that some abnormality could exist and not be detected with physical examination or within the limits and capabilities of laboratory and other studies. You should return or follow up as you were instructed on your visit today for further evaluation if your symptoms do not resolve. FOLLOW-UP CARE: If you have been referred to a physician for follow-up care, call the physician s office for an appointment as you were instructed or within the next two days. If you experience worsening or a significant change in your symptoms, notify the physician immediately or return to the Emergency Department at any time for re-evaluation. Referrals: ANAMIKA VILLATORO PA-C [Primary Care Provider] - Follow up as needed
[2017-06-25 19:05] VITALS: BP 97/64
--- NOTE | 2017-06-25 19:17 | EKG REPORT ---
SEVERITY:- ABNORMAL ECG - SINUS TACHYCARDIA PROBABLE LEFT ATRIAL ABNORMALITY INFERIOR Q WAVES, PROBABLY NORMAL VARIATION BORDERLINE T WAVE ABNORMALITIES : Confirmed by: Amrik Baez MD 25-Jun-2017 19:16:54
== END 2017-06-25 19:14 | disposition home or self-care (01) ==
LOC: ER 14:45
DX: R07.9 Chest pain, unspecified (principal); R00.0 Tachycardia, unspecified; F41.9 Anxiety disorder, unspecified; F43.10 Post-traumatic stress disorder, unspecified; R53.1 Weakness; M54.2 Cervicalgia; Z79.899 Other long term (current) drug therapy; F17.200 Nicotine dependence, unspecified, uncomplicated
CPT/HCPCS: 93005; 99285; 96360; 96361; 36415; 87086; 84439; 82553; 82962; 82550; 84443; 85025; 80053; 81001; 80307; 84481; 85379; 71010; 93010; J7030

== ENCOUNTER → 2017-06-25 | Outpatient (CLI) | payer MEDICAID | LOC: OD 14:00 | PROVIDERS: ATTEND Physician Assistant | DX: E87.5 Hyperkalemia (principal) | CPT/HCPCS: 36415; 84132 ==

== ENCOUNTER → 2017-08-13 | Outpatient (CLI) | payer MEDICAID ==
[2017-08-13 15:52] LABS: HEMATOCRIT 40.9 % (36.0-47.0); HEMOGLOBIN 14.8 g/dL (12.0-15.5); HGB HCT DIFFERENCE 3.5; MEAN CORPUSCULAR HEMOGLOBIN 34.6 pg (27.0-33.4); MEAN CORPUSCULAR HGB CONC 36.1 g/dL (32.0-36.0); MEAN CORPUSCULAR VOLUME 96 fl (80-97); RED BLOOD COUNT 4.27 10^6/uL (3.72-5.28); RED CELL DISTRIBUTION WIDTH 12.8 % (11.5-14.0); WHITE BLOOD COUNT 5.3 10^3/uL (4.0-10.5)
[2017-08-13 16:10] LABS: ALANINE AMINOTRANSFERASE 26 U/L (9-52); ALBUMIN 4.4 g/dL (3.5-5.0); ALKALINE PHOSPHATASE 64 U/L (38-126); ANION GAP 10 (5-19); ASPARTATE AMINO TRANSFERASE 15 U/L (14-36); BILIRUBIN,DIRECT 0.3 mg/dL (0.0-0.4); BILIRUBIN,TOTAL 0.8 mg/dL (0.2-1.3); BLOOD UREA NITROGEN 13 mg/dL (7-20); CALCIUM 9.9 mg/dL (8.4-10.2); CARBON DIOXIDE 29 mmol/L (22-30); CHLORIDE 102 mmol/L (98-107); CHOLESTEROL 156.57 mg/dL (0-200); CREATININE RESULT 0.88 mg/dL (0.52-1.25); Direct HDL 46 mg/dL (>40); GLUCOSE 82 mg/dL (75-110); MAGNESIUM 1.9 mg/dL (1.6-2.3); POTASSIUM 4.7 mmol/L (3.6-5.0); SODIUM 140.8 mmol/L (137-145); TOTAL PROTEIN 7.1 g/dL (6.3-8.2); TRIGLYCERIDES 67 mg/dL (<150)
[2017-08-13 16:20] LABS: DIRECT LDL 91 mg/dL (<100)
[2017-08-13 16:31] LABS: ERYTHROCYTE SEDIMENTATION RATE 7 mm/hr (0-20)
== END ==
LOC: OD 14:41
PROVIDERS: ATTEND Internal Medicine Cardiovascular Disease
DX: R00.0 Tachycardia, unspecified (principal); R07.9 Chest pain, unspecified
CPT/HCPCS: 36415; 80048; 80061; 80076; 83735; 84439; 84443; 85027; 85652

== ENCOUNTER 2017-08-25 09:57 | Emergency (ER) | payer MEDICAID ==
--- NOTE | 2017-08-25 10:33 | ER Document Report ---
ED Medical Screen (RME) - General Chief Complaint: Chest Pressure Stated Complaint: DIZZY CHEST PRESSURE Time Seen by Provider: 08/25/17 10:26 Notes: Patient says that she called her implementation analyst, Dr. Baez, because she is experiencing hurting in her chest and pressure on her chest since yesterday. She was referred here to be evaluated. She said that all of this started last night she also noted her hands turning purple and she was feeling dizzy. She has been seeing Dr. Baez who has done a Holter monitor and an echocardiogram of the patient. No specific diagnosis has been made. She says she is feeling nauseated but not vomiting. A little bit short of breath. PMH: Anxiety. TRAVEL OUTSIDE OF THE [place] IN LAST 30 DAYS: No - Related Data Allergies/Adverse Reactions: nitrofurantoin [From Macrobid] Allergy (Mild, Verified 08/25/17 10:08) Generalized Itching nitrofurantoin macrocrystalline [From Macrobid] Allergy (Mild, Verified 10:08) Generalized Itching Penicillins Allergy (Mild, Verified 08/25/17 10:08) Generalized Itching promethazine HCl [From Phenergan] Allergy (Mild, Verified 08/25/17 10:08) Generalized Itching amoxicillin [Amoxicillin] Allergy (Verified 08/25/17 10:08) Generalized Itching Past Medical History - Social History Chew tobacco use (# tins/day): No Frequency of alcohol use: Rare Drug Abuse: None Neurological Medical History: Reports: Hx Migraine, Hx Seizures Renal/ Medical History: Reports: Hx Kidney Stones, Hx Ovarian Cysts - 2012. Denies: Hx Peritoneal Dialysis GI Medical History: Reports: Hx Gastroesophageal Reflux Disease, Hx Irritable Bowel - for 5 years Psychiatric Medical History: Reports: Hx Anxiety, Hx Depression, Hx Post Traumatic Stress Disorder - severe panic disorder Past Surgical History: Reports: Hx Section - x2, Hx Cholecystectomy - 2010, Hx Hysterectomy, Hx Kidney (Renal Surgery) - nephrostomy tube, Hx Tonsillectomy - 13 yo - Immunizations Immunizations up to date: Yes Hx Diphtheria, Pertussis, Tetanus Vaccination: Yes Physical Exam - Vital signs Vitals: Temp Pulse Resp BP Pulse Ox 98.7 F 103 H 16 109/74 99 08/25/17 10:14 08/25/17 10:14 08/25/17 10:14 08/25/17 10:14 08/25/17 10:14 Course - Vital Signs Vital signs: Temp Pulse Resp BP Pulse Ox 98.7 F 103 H 16 109/74 99 08/25/17 10:14 08/25/17 10:14 08/25/17 10:14 08/25/17 10:14 08/25/17 10:14
[2017-08-25 10:52] LABS: ABSOLUTE EOSINOPHILS # (AUTO) 0.2 10^3/uL (0.0-0.6); ABSOLUTE LYMPHOCYTES (AUTO) 1.8 10^3/uL (0.5-4.7); ABSOLUTE MONOCYTES (AUTO) 0.4 10^3/uL (0.1-1.4); ABSOLUTE NEUT (AUTO) 3.7 10^3/uL (1.7-8.2); BASOPHILS % (AUTO) 0.5 % (0-2); EOSINOPHILS % (AUTO) 2.8 % (0-6); HEMOGLOBIN 14.5 g/dL (12.0-15.5); HGB HCT DIFFERENCE 3.5; LYMPHOCYTES % (AUTO) 29.6 % (13-45); MEAN CORPUSCULAR HEMOGLOBIN 34.6 pg (27.0-33.4); MEAN CORPUSCULAR HGB CONC 36.3 g/dL (32.0-36.0); MEAN CORPUSCULAR VOLUME 95 fl (80-97); MONOCYTES % (AUTO) 6.3 % (3-13); RED BLOOD COUNT 4.21 10^6/uL (3.72-5.28); RED CELL DISTRIBUTION WIDTH 12.7 % (11.5-14.0); SEGMENTED NEUTROPHILS % (AUTO) 60.8 % (42-78); WHITE BLOOD COUNT 6.1 10^3/uL (4.0-10.5)
[2017-08-25 10:59] LABS: APPEARANCE,URINE CLEAR; BILIRUBIN,URINE NEGATIVE (NEGATIVE); GLUCOSE, URINE NEGATIVE (NEGATIVE); KETONES,URINE NEGATIVE (NEGATIVE); LEUKOCYTE ESTERASE,URINE NEGATIVE (NEGATIVE); NITRITE,URINE NEGATIVE (NEGATIVE); PROTEIN,URINE NEGATIVE (NEGATIVE); URINE SPECIFIC GRAVITY 1.012; UROBILINOGEN,URINE NEGATIVE mg/dL (<2.0)
[2017-08-25 11:10] LABS: ALANINE AMINOTRANSFERASE 34 U/L (9-52); ALBUMIN 4.4 g/dL (3.5-5.0); ALKALINE PHOSPHATASE 66 U/L (38-126); ANION GAP 8 (5-19); ASPARTATE AMINO TRANSFERASE 13 U/L (14-36); BILIRUBIN,DIRECT 0.2 mg/dL (0.0-0.4); BILIRUBIN,TOTAL 0.8 mg/dL (0.2-1.3); BLOOD UREA NITROGEN 11 mg/dL (7-20); CALCIUM 9.7 mg/dL (8.4-10.2); CARBON DIOXIDE 25 mmol/L (22-30); CHLORIDE 107 mmol/L (98-107); CREATININE RESULT 0.91 mg/dL (0.52-1.25); GLUCOSE 89 mg/dL (75-110); POTASSIUM 4.4 mmol/L (3.6-5.0); SODIUM 140.2 mmol/L (137-145); TOTAL PROTEIN 6.9 g/dL (6.3-8.2)
[2017-08-25 11:21] LABS: CREATINE KINASE MB 0.52 ng/mL (<4.55)
[2017-08-25 11:22] LABS: TROPONIN I < 0.012 ng/mL
--- NOTE | 2017-08-25 11:37 | RADIOLOGY REPORT (SQ) ---
EXAM DESCRIPTION: CHEST PA/LAT COMPLETED DATE/TIME: 08/25/2017 10:54 am REASON FOR STUDY: Chest pain COMPARISON: Two-view chest 03/31/2017, 11/21/2012 EXAM PARAMETERS: NUMBER OF VIEWS: two views TECHNIQUE: Digital Frontal and Lateral radiographic views of the chest acquired. RADIATION DOSE: NA LIMITATIONS: Artifact from bilateral nipple rings FINDINGS: LUNGS AND PLEURA: No opacities, masses or pneumothorax. No pleural effusion. MEDIASTINUM AND HILAR STRUCTURES: No masses or contour abnormalities. HEART AND VASCULAR STRUCTURES: Heart normal size. No evidence for failure. BONES: No acute findings. HARDWARE: Clips post cholecystectomy. OTHER: No other significant finding. IMPRESSION: NO SIGNIFICANT RADIOGRAPHIC FINDING IN THE CHEST. TECHNICAL DOCUMENTATION: JOB ID: [id number] [employer]- All Rights Reserved
--- NOTE | 2017-08-25 12:00 | ER Document Report ---
ED General - General Chief Complaint: Chest Pressure Stated Complaint: DIZZY CHEST PRESSURE Time Seen by Provider: 08/25/17 10:26 TRAVEL OUTSIDE OF THE [place] IN LAST 30 DAYS: No - HPI Patient complains to provider of: Discoloration of hands chest pressure dizziness Notes: Patient is coming in for the above-stated symptoms. Patient states his symptoms have been ongoing for "quite a while". Patient symptoms today occurred and she called her alteration worker and was encouraged to come to the ER for further evaluation. Patient states patient's dizziness and chest pressure normal patient also states that most of her hands will become discolored and turn white however patient states today the fingertips to turn blue. Patient is allowing her fingertips to did have a burning sensation and became numb however now her currently normal. Patient has no complaints. Patient states is currently being worked up by her alteration worker and her primary care physician for this issue patient states that her alteration worker recommend she follows up with a electrical assemblies supervisor which she has not done yet. Patient states her mother has history of lupus patient otherwise denies any medication changes recent travel drug abuse denies any trauma - Related Data Allergies/Adverse Reactions: nitrofurantoin [From Macrobid] Allergy (Mild, Verified 08/25/17 10:08) Generalized Itching nitrofurantoin macrocrystalline [From Macrobid] Allergy (Mild, Verified 10:08) Generalized Itching Penicillins Allergy (Mild, Verified 08/25/17 10:08) Generalized Itching promethazine HCl [From Phenergan] Allergy (Mild, Verified 08/25/17 10:08) Generalized Itching amoxicillin [Amoxicillin] Allergy (Verified 08/25/17 10:08) Generalized Itching Past Medical History - Social History Smoking Status: Current Every Day Smoker Chew tobacco use (# tins/day): No Frequency of alcohol use: Rare Drug Abuse: None Family History: Reviewed & Not Pertinent Patient has suicidal ideation: No Patient has homicidal ideation: No Neurological Medical History: Reports: Hx Migraine, Hx Seizures Renal/ Medical History: Reports: Hx Kidney Stones, Hx Ovarian Cysts - 2012. Denies: Hx Peritoneal Dialysis GI Medical History: Reports: Hx Gastroesophageal Reflux Disease, Hx Irritable Bowel - for 5 years Psychiatric Medical History: Reports: Hx Anxiety, Hx Depression, Hx Post Traumatic Stress Disorder - severe panic disorder Past Surgical History: Reports: Hx Section - x2, Hx Cholecystectomy - 2011, Hx Hysterectomy, Hx Kidney (Renal Surgery) - nephrostomy tube, Hx Tonsillectomy - 13 yo - Immunizations Immunizations up to date: Yes Hx Diphtheria, Pertussis, Tetanus Vaccination: Yes Hx Pneumococcal Vaccination: 11/23/09 Review of Systems - Review of Systems Constitutional: No symptoms reported EENT: No symptoms reported Cardiovascular: Other - Chest pressure Respiratory: No symptoms reported Gastrointestinal: No symptoms reported Genitourinary: No symptoms reported Female Genitourinary: No symptoms reported Musculoskeletal: No symptoms reported Skin: No symptoms reported Hematologic/Lymphatic: No symptoms reported Neurological/Psychological: Other - Numbness and tingling of the hands -: Yes All other systems reviewed and negative Physical Exam - Vital signs Vitals: Temp Pulse Resp BP Pulse Ox 98.7 F 103 H 16 109/74 99 08/25/17 10:14 08/25/17 10:14 08/25/17 10:14 08/25/17 10:14 08/25/17 10:14 Interpretation: Normal - General General appearance: Appears well, Alert - HEENT Head: Normocephalic, Atraumatic Eyes: Normal Pupils: PERRL - Respiratory Respiratory status: No respiratory distress Chest status: Nontender Breath sounds: Normal Chest palpation: Normal - Cardiovascular Rhythm: Regular Heart sounds: Normal auscultation Murmur: No - Abdominal Inspection: Normal Distension: No distension Bowel sounds: Normal Tenderness: Nontender Organomegaly: No organomegaly - Back Back: Normal, Nontender - Extremities General upper extremity: Normal inspection, Nontender, Normal color, Normal ROM , Normal temperature General lower extremity: Normal inspection, Nontender, Normal color, Normal ROM , Normal temperature, Normal weight bearing. No: Alfred's sign - Neurological Neuro grossly intact: Yes Cognition: Normal Orientation: AAOx4 [place] Scale Eye Opening: Spontaneous [place] Coma Scale Verbal: Oriented [place] Com[place] Scale Motor: Obeys Commands Eug[place]io Coma Scale Total: 15 Speech: Normal Motor strength normal: LUE, RUE, LLE, RLE Sensory: Normal - Psychological Associated symptoms: Normal affect, Normal mood - Skin Skin Temperature: Warm Skin Moisture: Dry Skin Color: Normal Course - Re-evaluation Re-evalutation: 08/25/17 14:59 Patient's workup does not show any significant pathology. Patient did have pictures of her hands which do show blue fingertips. Patient states that this phenomenon happens intermittently exacerbating factor sounds like underlying rainouts phenomenon explained to patient that this could be due to another autoimmune disease recommend patient follow-up with rheumatology however continue to keep her hands warm avoid any trauma patient states understanding print out the patient's lab work was given to the patient patient was discharged home. - Vital Signs Vital signs: Temp Pulse Resp BP Pulse Ox 98.7 F 103 H 16 109/74 99 08/25/17 10:14 08/25/17 10:14 08/25/17 10:14 08/25/17 10:14 08/25/17 10:14 - Laboratory Result Diagrams: 08/25/17 10:40 08/25/17 10:40 Laboratory results interpreted by me: 08/25/17 08/25/17 08/25/17 10:40 10:40 10:40 MCH 34.6 H MCHC 36.3 H AST 13 L Urine Blood SMALL H Discharge - Discharge Clinical Impression: Bilateral hand pain, Dizziness Condition: Good Disposition: HOME, SELF-CARE Instructions: Dizziness ([facility]), Family Physicians / Practices Additional Instructions: Your symptoms are consistent with a raynauds phenomenon. I believe that further evaluation will need to be made by your primary care physician or electrical assemblies supervisor. Please continue to keep her hands warm as it most the time this phenomenon can be brought on by cold weather. Her laboratory studies today did not show any signs of significant pathology. Please return to ER symptoms worsen follow-up with your primary care physician. Referrals: RHEUMATOLOGY [Provider Group] - Follow up as needed
[2017-08-25 12:35] VITALS: BP 101/62
--- NOTE | 2017-08-25 18:19 | EKG REPORT ---
SEVERITY:- NORMAL ECG - SINUS RHYTHM : Confirmed by: Bre Ward MD 25-Aug-2017 18:18:21
== END 2017-08-25 12:35 | disposition home or self-care (01) ==
LOC: ER 09:57
DX: M79.641 Pain in right hand (principal); M79.642 Pain in left hand; R42 Dizziness and giddiness; R20.2 Paresthesia of skin; R20.0 Anesthesia of skin; R07.89 Other chest pain; F17.200 Nicotine dependence, unspecified, uncomplicated; Z84.89 Family history of other specified conditions; Z88.1 Allergy status to other antibiotic agents; Z88.0 Allergy status to penicillin; Z88.8 Allergy status to other drugs, medicaments and biological substances
CPT/HCPCS: 36415; 71020; 80053; 81001; 82553; 84484; 85025; 93005; 93010; 99285

== ENCOUNTER 2017-09-05 23:17 | Emergency (ER) | payer MEDICAID ==
[2017-09-06 01:04] LABS: AMORPHOUS SEDIMENT,URINE TRACE /HPF; APPEARANCE,URINE CLEAR; BILIRUBIN,URINE NEGATIVE (NEGATIVE); GLUCOSE, URINE NEGATIVE (NEGATIVE); KETONES,URINE NEGATIVE (NEGATIVE); LEUKOCYTE ESTERASE,URINE NEGATIVE (NEGATIVE); NITRITE,URINE NEGATIVE (NEGATIVE); PROTEIN,URINE NEGATIVE (NEGATIVE); URINE SPECIFIC GRAVITY 1.008; UROBILINOGEN,URINE NEGATIVE mg/dL (<2.0)
[2017-09-06] MEDS ORDERED: DIAZEPAM INJ 10 MG/2 ML DISP.SYRIN IV ONE (01:06)
--- NOTE | 2017-09-06 01:09 | ER Document Report ---
ED General - General Chief Complaint: Probable Seizure Stated Complaint: POSSIBLE SEIZURE Time Seen by Provider: 09/06/17 00:25 Notes: Patient is a 27-year-old female with a past medical history of pseudoseizures, lupus, who presents after having an episode in which she apparently became unconscious and had body twitching and jaw locking at home. This episode lasted for approximately 10 minutes and then did spontaneously resolve. Patient states that she came out of the episode "crying hysterically" but was apparently immediately alert and oriented. She has a history of similar episodes in the past and has been seen in the emergency department on prior occasions for this. She denies taking any current psychiatric or seizure medications. She no longer takes gabapentin. She has not seen her neurologist in several months. Patient does note a significant amount of stress and anxiety regarding her recent diagnosis of lupus. She does also complain of 4-5 days of a dull, constant, aching pain to her left flank. Denies any associated dysuria or hematuria. Nothing improves or worsens this pain. This is not a reason for visit to the emergency department today. TRAVEL OUTSIDE OF THE [place] IN LAST 30 DAYS: No - Related Data Allergies/Adverse Reactions: nitrofurantoin [From Macrobid] Allergy (Mild, Verified 09/06/17 02:21) Generalized Itching nitrofurantoin macrocrystalline [From Macrobid] Allergy (Mild, Verified 02:21) Generalized Itching Penicillins Allergy (Mild, Verified 09/06/17 02:21) Generalized Itching promethazine HCl [From Phenergan] Allergy (Mild, Verified 09/06/17 02:21) Generalized Itching amoxicillin [Amoxicillin] Allergy (Verified 09/06/17 02:21) Generalized Itching Past Medical History - General Information source: Patient - Social History Smoking Status: Current Every Day Smoker Chew tobacco use (# tins/day): No Frequency of alcohol use: Occasional Drug Abuse: None Lives with: Spouse/Significant other Family History: Reviewed & Not Pertinent Patient has suicidal ideation: No Patient has homicidal ideation: No Neurological Medical History: Reports: Hx Migraine, Hx Seizures - pseudoseizures Renal/ Medical History: Reports: Hx Kidney Stones, Hx Ovarian Cysts - 2012. Denies: Hx Peritoneal Dialysis GI Medical History: Reports: Hx Gastroesophageal Reflux Disease, Hx Irritable Bowel - for 5 years Psychiatric Medical History: Reports: Hx Anxiety, Hx Depression, Hx Post Traumatic Stress Disorder - severe panic disorder Past Surgical History: Reports: Hx Section - x2, Hx Cholecystectomy - 2011, Hx Hysterectomy, Hx Kidney (Renal Surgery) - nephrostomy tube, Hx Tonsillectomy - 13 yo - Immunizations Immunizations up to date: Yes Hx Diphtheria, Pertussis, Tetanus Vaccination: Yes Hx Pneumococcal Vaccination: 11/23/09 Review of Systems - Review of Systems Notes: Constitutional: Negative for fever. HENT: Negative for sore throat. Eyes: Negative for visual changes. Cardiovascular: Negative for chest pain. Respiratory: Negative for shortness of breath. Gastrointestinal: Negative for abdominal pain, vomiting or diarrhea. Positive for left flank pain Genitourinary: Negative for dysuria. Musculoskeletal: Negative for back pain. Skin: Negative for rash. Neurological: Negative for headaches, weakness or numbness. 10 point ROS negative except as marked above and in HPI. Physical Exam - Vital signs Vitals: Temp Pulse Resp BP Pulse Ox 97.5 F 117 H 16 120/87 H 100 09/05/17 23:25 09/05/17 23:25 09/05/17 23:25 09/05/17 23:25 09/05/17 23:25 Interpretation: Tachycardic Notes: PHYSICAL EXAMINATION: GENERAL: Well-appearing, well-nourished and in no acute distress. HEAD: Atraumatic, normocephalic. EYES: Pupils equal round and reactive to light, extraocular movements intact, sclera anicteric, conjunctiva are normal. ENT: nares patent, oropharynx clear without exudates. Moist mucous membranes. NECK: Normal range of motion, supple without lymphadenopathy LUNGS: Breath sounds clear to auscultation bilaterally and equal. No wheezes rales or rhonchi. HEART: Regular rate and rhythm without murmurs ABDOMEN: Soft, nontender, normoactive bowel sounds. No guarding, no rebound. No masses appreciated. Mild left CVA tenderness. No hydronephrosis bilaterally on renal ultrasound at the bedside. EXTREMITIES: Normal range of motion, no pitting or edema. No cyanosis. NEUROLOGICAL: Face symmetric. Tongue protrudes midline. Extraocular motions intact. Pupils are 2 mm and equally reactive. Normal speech, normal gait. 5 out of 5 strength in both the distal and proximal upper and lower extremities bilaterally. Sensation is grossly intact throughout. Finger to nose testing normal. Pronator drift normal. PSYCH: Moderately anxious SKIN: Warm, Dry, normal turgor, no rashes or lesions noted. 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 Clinical history is inconsistent with an epileptic seizure and I do not believe any imaging or labs are indicated. Neurologic exam unremarkable without any focal neurologic deficits. No trauma sustained during today's episode. The patient does have a history of similar episodes in the past as well as a psychiatric history. Patient did report concern of a possible urinary tract infection with associated left flank pain. No CVA tenderness on examination. Urinalysis clear. Bedside ultrasound is without any evidence of hydronephrosis. At this time will discharge with return precautions and follow-up recommendations. Verbal discharge instructions given a the bedside and opportunity for questions given. Medication warnings reviewed. Patient is in agreement with this plan and has verbalized understanding of return precautions and the need for primary care follow-up in the next 24-72 hours. - Vital Signs Vital signs: Temp Pulse Resp BP Pulse Ox 98.2 F 80 16 104/60 97 09/06/17 02:00 09/06/17 02:00 09/06/17 02:00 09/06/17 02:00 09/06/17 02:00 Discharge - Discharge Clinical Impression: Pseudoseizure, CVA tenderness Condition: Good Disposition: HOME, SELF-CARE Additional Instructions: Your episode of shaking today was likely due to something called PNES, also known as pseudogenic non-epileptiform seizures. These are often also often referred to as pseudoseizures. These are not voluntary. However, they are not coming from an abnormal focus in your brain like somebody who has true epilepsy. These episodes can often be triggered by stress, anxiety, or not taking your normal medications. Please follow-up with your primary care doctor at your earliest ability. Your kidney ultrasound is normal. The urine does not show any evidence of infection. Return for any additional concerns you may have including if you develop a fever, nausea, vomiting, pass out, have focal weakness or numbness, or any other symptoms that are concerning to you. Referrals: ANAMIKA VILLATORO PA-C [Primary Care Provider] - Follow up as needed
[2017-09-06 02:18] VITALS: BP 104/60
== END 2017-09-06 02:10 | disposition home or self-care (01) ==
LOC: ER 23:17
DX: F44.5 Conversion disorder with seizures or convulsions (principal); F41.9 Anxiety disorder, unspecified; R00.0 Tachycardia, unspecified; R10.9 Unspecified abdominal pain; F17.200 Nicotine dependence, unspecified, uncomplicated; Z88.1 Allergy status to other antibiotic agents; Z88.0 Allergy status to penicillin; Z88.8 Allergy status to other drugs, medicaments and biological substances
CPT/HCPCS: 99283; 96374; 81001; J3360

== ENCOUNTER 2018-01-21 21:49 | Emergency (ER) | payer MEDICAID ==
--- NOTE | 2018-01-21 23:03 | ER Document Report ---
ED General - General Mode of Arrival: Ambulatory Information source: Patient TRAVEL OUTSIDE OF THE [place] IN LAST 30 DAYS: No - General Chief Complaint: Swollen Glands Stated Complaint: THROAT PAIN Time Seen by Provider: 01/21/18 22:38 Notes: 27 y.o female with a PMHx of HTN presents to the ED with neck stiffness and the sensation of a ball in her throat and enlarged lymph nodes. She reports that she has seen her PCP and her pain management doctor today and states that her doctors believe she has Lupus but is without a definite diagnosis. She states that she has been having frequent flareups for which her pain management doctor gave her Prednisone 4 days ago. Patient reports some difficulty swallowing liquids and feels as if the fluids are deviating the left. She denies any difficulty swallowing saliva or solid food. She notes some increased saliva but denies any rhinorrhea. Patient also complains of restriction to her lungs but denies SOB, CP or cough. Patient does not take medication for HTN on a regular basis. She takes Clonidine at night for sleep. (KATIE RAM) - Related Data Allergies/Adverse Reactions: nitrofurantoin [From Macrobid] Allergy (Mild, Verified 09/06/17 02:21) Generalized Itching nitrofurantoin macrocrystalline [From Macrobid] Allergy (Mild, Verified 02:21) Generalized Itching Penicillins Allergy (Mild, Verified 09/06/17 02:21) Generalized Itching promethazine HCl [From Phenergan] Allergy (Mild, Verified 09/06/17 02:21) Generalized Itching amoxicillin [Amoxicillin] Allergy (Verified 09/06/17 02:21) Generalized Itching Past Medical History - General Information source: Patient - Social History Smoking Status: Current Every Day Smoker Chew tobacco use (# tins/day): No Frequency of alcohol use: None Drug Abuse: None Family History: Reviewed & Not Pertinent Patient has suicidal ideation: No Patient has homicidal ideation: No Neurological Medical History: Reports: Hx Migraine, Hx Seizures - pseudoseizures Renal/ Medical History: Reports: Hx Kidney Stones, Hx Ovarian Cysts - 2012. Denies: Hx Peritoneal Dialysis GI Medical History: Reports: Hx Gastroesophageal Reflux Disease, Hx Irritable Bowel - for 5 years Psychiatric Medical History: Reports: Hx Anxiety, Hx Depression, Hx Post Traumatic Stress Disorder - severe panic disorder Past Surgical History: Reports: Hx Section - x2, Hx Cholecystectomy - 2011, Hx Hysterectomy, Hx Kidney (Renal Surgery) - nephrostomy tube, Hx Tonsillectomy - 13 yo - Immunizations Immunizations up to date: Yes Hx Diphtheria, Pertussis, Tetanus Vaccination: Yes Hx Pneumococcal Vaccination: 11/23/09 Review of Systems - Review of Systems Constitutional: No symptoms reported EENT: See HPI, Difficulty swallowing - Liquids only., Other - "softball in throat" sensation. denies: Nose discharge Cardiovascular: denies: Chest pain Respiratory: See HPI, Other - Restricted lung sensation. denies: Cough, Short of breath Gastrointestinal: No symptoms reported Genitourinary: No symptoms reported Female Genitourinary: No symptoms reported Musculoskeletal: See HPI, Other - Neck stiffness. Possible lupus flareups Skin: No symptoms reported Hematologic/Lymphatic: See HPI, Enlarged lymph nodes Neurological/Psychological: No symptoms reported -: Yes All other systems reviewed and negative Physical Exam - Vital signs Vitals: Temp Pulse Resp BP Pulse Ox 98.3 F 105 H 20 138/86 H 100 01/21/18 21:53 01/21/18 21:53 01/21/18 21:53 01/21/18 21:53 01/21/18 21:53 - Notes Notes: GENERAL: Alert, interacts well. No acute distress. HEAD: Normocephalic, atraumatic. EYES: Pupils equal, round, and reactive to light. Extraocular movements intact. ENT: Oral mucosa moist, tongue midline. No post nasal drip or swelling of posterior oropharynx. NECK: Full range of motion. Supple. Trachea midline. No thyroid enlargement. No lymphadenopathy. LUNGS: Clear to auscultation bilaterally, no wheezes, rales, or rhonchi. No respiratory distress. HEART: Regular rate and rhythm. No murmurs, gallops, or rubs. No lower extremity edema. ABDOMEN: Soft, non-tender. Non-distended. Bowel sounds present in all 4 quadrants. No guarding, rebound, or rigidity. EXTREMITIES: Moves all 4 extremities spontaneously. No edema bilaterally. No cyanosis. NEUROLOGICAL: Alert and oriented x3. Normal speech. PSYCH: Normal affect, normal mood. SKIN: Warm, dry, normal turgor. No rashes or lesions noted. (KATIE RAM) Course - Re-evaluation Re-evalutation: 01/21/18 23:03 Dalia is in no distress, has no difficulty swallowing solids, no difficulty handling her own secretions, does state that she feels like the liquids get pushed slightly to one side. There is no physiologic explanation for this. No indication for emergent laryngoscopy or CT scan of the neck. There is no evidence of meningitis, there is no difficulty turning her neck or flexing or extending her neck. No indication for blood work at this time. (EUFEMIA GARCIA) - Vital Signs Vital signs: Temp Pulse Resp BP Pulse Ox 98.3 F 80 18 120/81 100 01/21/18 23:22 01/21/18 23:22 01/21/18 23:22 01/21/18 23:22 01/21/18 23:22 Discharge - Discharge Clinical Impression: Dysphagia Qualifiers: Dysphagia type: unspecified Qualified Code(s): R13.10 - Dysphagia, unspecified Condition: Stable Disposition: HOME, SELF-CARE Additional Instructions: I do not know why you are having difficulty swallowing today. Thinks the cause swelling initial throat should have difficulty swallowing solids first and then later on to develop difficulty swallowing liquids. As you are having no difficulty swallowing solids it is unlikely that there is swelling or a mass in your throat. If you continue to have a sensation of shifting or deviation of your throat when you drink liquids you should follow-up with either an ear nose and throat doctor or a GI doctor to have somebody look at your throat using a camera or you should consider following up for the swallow study that she stated you were supposed to have. This will help to better identify what is causing your difficulty swallowing. Referrals: ANAMIKA VILLATORO PA-C [Primary Care Provider] - Follow up in 3-5 days Scribe Attestation: 01/22/18 06:02 I personally performed the services described in the documentation, reviewed and edited the documentation which was dictated to the scribe in my presence, and it accurately records my words and actions. (EUFEMIA GARCIA) Scribe Documentation - Scribe Written by Damaso:: Katie Ram, Damaso 01/21/18 [id number] acting as scribe for :: Mitra
[2018-01-21 23:28] VITALS: BP 120/81
== END 2018-01-21 23:32 | disposition home or self-care (01) ==
LOC: ER 21:49
DX: R13.10 Dysphagia, unspecified (principal); R07.0 Pain in throat; F17.200 Nicotine dependence, unspecified, uncomplicated; Z88.0 Allergy status to penicillin; Z87.442 Personal history of urinary calculi; Z90.49 Acquired absence of other specified parts of digestive tract; Z90.710 Acquired absence of both cervix and uterus
CPT/HCPCS: 99282

== ENCOUNTER → 2018-01-21 | Outpatient (CLI) | payer MEDICAID ==
[2018-01-21 14:16] LABS: HEMATOCRIT 41.2 % (36.0-47.0); HEMOGLOBIN 14.2 g/dL (12.0-15.5); MEAN CORPUSCULAR HEMOGLOBIN 33.1 pg (27.0-33.4); MEAN CORPUSCULAR HGB CONC 34.5 g/dL (32.0-36.0); MEAN CORPUSCULAR VOLUME 96 fl (80-97); PLATELET COUNT 330 10^3/uL (150-450); RED BLOOD COUNT 4.31 10^6/uL (3.72-5.28); WHITE BLOOD COUNT 8.5 10^3/uL (4.0-10.5)
[2018-01-21 15:04] LABS: ERYTHROCYTE SEDIMENTATION RATE 6 mm/hr (0-20)
[2018-01-23 12:40] LABS: DILUTE RUSSELL VIPOR VENOM 29.6 sec (0.0-47.0); PTT-LA 34.8 sec (0.0-51.9); THROMBIN TIME 21.6 sec (0.0-23.0)
[2018-01-24 06:49] LABS: LUPUS PANEL INTERPRETATION Comment: (.); PROTEIN S FREE 112 % (57-157); PROTEIN S FUNCTIONAL 102 % (63-140); PROTEIN S TOTAL 80 % (60-150)
== END ==
LOC: OD 13:10
PROVIDERS: ATTEND Nurse Practitioner Psychiatric/Mental Health
DX: D64.9 Anemia, unspecified (principal); G89.4 Chronic pain syndrome; M25.50 Pain in unspecified joint
CPT/HCPCS: 36415; 83520; 85027; 85305; 85306; 85652; 86038; 86225; 86235

== ENCOUNTER 2018-05-22 12:51 | Emergency (ER) | payer MEDICAID ==
[2018-05-22] MEDS ORDERED: RINGERS SOLUTION,LACTATED 1,000 ML IV ONE (13:13)
[2018-05-22] MEDS ORDERED: ONDANSETRON 4 MG TAB.RAPDIS PO ONE (13:14)
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
[2018-05-22] MEDS ORDERED: KETOROLAC TROMETHAMINE 60 MG/2 ML SDV IM ONE (13:18)
[2018-05-22] MEDS ORDERED: NORMAL SALINE 250 ML IV ONE (13:20)
[2018-05-22] MEDS ORDERED: KETOROLAC TROMETHAMINE INJ/PF 30 MG/1 ML SDV IV ONE (13:49)
[2018-05-22 13:51] LABS: APPEARANCE,URINE CLEAR; BILIRUBIN,URINE NEGATIVE (NEGATIVE); COLOR,URINE YELLOW; GLUCOSE, URINE NEGATIVE (NEGATIVE); KETONES,URINE NEGATIVE (NEGATIVE); LEUKOCYTE ESTERASE,URINE NEGATIVE (NEGATIVE); NITRITE,URINE NEGATIVE (NEGATIVE); PROTEIN,URINE NEGATIVE (NEGATIVE); UROBILINOGEN,URINE NEGATIVE mg/dL (<2.0)
--- NOTE | 2018-05-22 14:05 | ER Document Report ---
ED GI/ - General Chief Complaint: STD Exposure Stated Complaint: VOMITING,PELVIC PAIN Time Seen by Provider: 05/22/18 13:09 Mode of Arrival: Ambulatory Information source: Patient Notes: Patient reports having unprotected intercourse 2 days ago and since then has had vaginal discomfort. Patient is concerned about sexually transmitted infection. Patient additionally complains of nausea vomiting diarrhea. Patient has vomited twice today and had diarrhea numerous times. Patient denies any urinary symptoms. TRAVEL OUTSIDE OF THE [place] IN LAST 30 DAYS: No - HPI Patient complains to provider of: Diarrhea, Vaginal pain, Vomiting. No: Dysuria Onset: Other - 2 days Timing/Duration: Gradual Quality of pain: Achy Pain Level: 3 Location: Vaginal Vaginal bleeding (Compared to normal period): None Sexual history: Active, Unprotected intercourse Associated symptoms: Diarrhea, Nausea, Vomiting. denies: Constipation, Urinary hesitancy, Urinary frequency, Urinary retention, Urinary urgency, Vaginal discharge Exacerbated by: Denies Relieved by: Denies Similar symptoms previously: No Recently seen / treated by doctor: No - Related Data Allergies/Adverse Reactions: nitrofurantoin [From Macrobid] Allergy (Mild, Verified 05/22/18 13:14) Generalized Itching nitrofurantoin macrocrystalline [From Macrobid] Allergy (Mild, Verified 13:14) Generalized Itching Penicillins Allergy (Mild, Verified 05/22/18 13:14) Generalized Itching promethazine HCl [From Phenergan] Allergy (Mild, Verified 05/22/18 13:14) Generalized Itching amoxicillin [Amoxicillin] Allergy (Verified 05/22/18 13:14) Generalized Itching Past Medical History - General Information source: Patient - Social History Smoking Status: Current Every Day Smoker Chew tobacco use (# tins/day): No Smoking Education Provided: Yes Frequency of alcohol use: Social Drug Abuse: Marijuana 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 Denies: Hx Peritoneal Dialysis GI Medical History: Reports: Hx Gastroesophageal Reflux Disease, Hx Irritable Bowel - for 5 years Psychiatric Medical History: Reports: Hx Anxiety, Hx Depression, Hx Post Traumatic Stress Disorder - severe panic disorder Past Surgical History: Reports: Hx Section - x2, Hx Cholecystectomy - 2011, Hx Hysterectomy, Hx Kidney (Renal Surgery) - nephrostomy tube, Hx Tonsillectomy - 13 yo - Immunizations Immunizations up to date: Yes Hx Diphtheria, Pertussis, Tetanus Vaccination: Yes Hx Pneumococcal Vaccination: 11/23/09 Review of Systems - Review of Systems Constitutional: No symptoms reported. denies: Fever, Recent illness EENT: No symptoms reported Cardiovascular: No symptoms reported. denies: Chest pain Respiratory: No symptoms reported. denies: Cough, Short of breath Gastrointestinal: Diarrhea, Nausea, Vomiting Genitourinary: No symptoms reported. denies: Dysuria, Flank pain Female Genitourinary: Vaginal discharge Musculoskeletal: No symptoms reported. denies: Back pain Skin: No symptoms reported Hematologic/Lymphatic: No symptoms reported Neurological/Psychological: No symptoms reported. denies: Headaches Physical Exam - Vital signs Vitals: Temp Pulse Resp BP Pulse Ox 98.6 F 108 H 16 130/89 H 97 05/22/18 12:57 05/22/18 12:57 05/22/18 12:57 05/22/18 12:57 05/22/18 12:57 - General General appearance: Appears well, Alert In distress: None - HEENT Head: Normocephalic, Atraumatic Eyes: Normal Conjunctiva: Normal Nasal: Normal Mouth/Lips: Normal Mucous membranes: Normal Neck: Normal, Supple. No: Lymphadenopathy - Respiratory Respiratory status: No respiratory distress Chest status: Nontender Breath sounds: Normal. No: Rales, Rhonchi, Stridor, Wheezing Chest palpation: Normal - Cardiovascular Rhythm: Tachycardia Heart sounds: S1 appreciated, S2 appreciated Murmur: No - Abdominal Inspection: Normal Distension: No distension Bowel sounds: Normal Tenderness: Tender - suprapubic Organomegaly: No organomegaly - Genitourinary External exam: Normal Speculum exam: Vaginal discharge - white, Other - s/p hysterectomy surgical changes Bimanuel exam: No: Cervical motion tender, Adnexal mass - Back Back: Normal, Nontender. No: CVA tenderness - Extremities General upper extremity: Normal inspection, Normal strength General lower extremity: Normal inspection, Normal strength - Neurological Neuro grossly intact: Yes Cognition: Normal Bee Coma Scale Eye Opening: Spontaneous Bee Coma Scale Verbal: Oriented Bee Coma Scale Motor: Obeys Commands Bee Coma Scale Total: 15 - Psychological Associated symptoms: Normal affect, Normal mood - Skin Skin Temperature: Warm Skin Moisture: Dry Skin Color: Normal Course - Re-evaluation Re-evalutation: 05/22/18 15:04 Patient reports nausea is improved at this time. Patient tolerating oral fluids without emesis. Patient with positive bacterial vaginosis as well as candidiasis. Will treat symptomatically. Patient encouraged to follow-up with the health department or her primary doctor if she would like to pursue HIV testing. Patient's abdomen soft, nontender. Patient complains of vaginal discomfort. - Vital Signs Vital signs: Temp Pulse Resp BP Pulse Ox 98 F 68 16 120/68 99 05/22/18 16:16 05/22/18 16:16 05/22/18 16:16 05/22/18 16:16 05/22/18 16:16 - Laboratory Laboratory results interpreted by me: Labs- Entire Visit 05/22/18 05/22/18 05/22/18 13:21 13:21 14:40 Serum HCG, Qual NEGATIVE Urine Color YELLOW Urine Appearance CLEAR Urine pH 6.0 Ur Specific [place] 1.010 Urine Protein NEGATIVE Urine Glucose (UA) NEGATIVE Urine Ketones NEGATIVE Urine Blood NEGATIVE Urine Nitrite NEGATIVE Urine Bilirubin NEGATIVE Urine Urobilinogen NEGATIVE Ur Leukocyte Esterase NEGATIVE Urine WBC (Auto) 1 Urine RBC (Auto) 1 Squamous Epi Cells Auto 1 Urine Mucus (Auto) OCC Urine Ascorbic Acid NEGATIVE Epi Cells (Wet Prep) 4+ EPITHELIALS SEEN Bacteria (Wet Prep) 4+ BACTERIA SEEN Trichomonas (Wet Prep) NO TRICHOMONAS SEEN Vaginal WBC FEW WBCS SEEN Vaginal RBC RARE RBCS SEEN Vaginal Yeast YEAST SEEN 05/22/18 15:05 Labs- Entire Visit 05/22/18 05/22/18 05/22/18 13:21 13:21 14:40 Serum HCG, Qual NEGATIVE Urine Color YELLOW Urine Appearance CLEAR Urine pH 6.0 Ur Specific [place] 1.010 Urine Protein NEGATIVE Urine Glucose (UA) NEGATIVE Urine Ketones NEGATIVE Urine Blood NEGATIVE Urine Nitrite NEGATIVE Urine Bilirubin NEGATIVE Urine Urobilinogen NEGATIVE Ur Leukocyte Esterase NEGATIVE Urine WBC (Auto) 1 Urine RBC (Auto) 1 Squamous Epi Cells Auto 1 Urine Mucus (Auto) OCC Urine Ascorbic Acid NEGATIVE Epi Cells (Wet Prep) 4+ EPITHELIALS SEEN Bacteria (Wet Prep) 4+ BACTERIA SEEN Trichomonas (Wet Prep) NO TRICHOMONAS SEEN Vaginal WBC FEW WBCS SEEN Vaginal RBC RARE RBCS SEEN Vaginal Yeast YEAST SEEN Discharge - Discharge Clinical Impression: Vaginal candidiasis, Nausea vomiting and diarrhea, Bacterial vaginosis Condition: Stable Disposition: HOME, SELF-CARE Instructions: Antinausea Medication ([facility]), Diarrhea, Nonspecific ([facility]), Intravenous (IV) Fluids ([facility]), Vaginal Yeast Infection ([facility]), Vaginosis, Bacterial ([facility]), Vomiting ([facility]) Additional Instructions: Return immediately for any new or worsening symptoms Followup with your primary care provider, call tomorrow to make a followup appointment Follow-up with the health department or your primary doctor if you would like to have HIV testing Prescriptions: Metronidazole [Flagyl 500 mg Tablet] 500 mg PO BID #14 tablet Ondansetron HCl [Zofran 4 mg Tablet] 1 - 2 tab PO Q6 PRN #12 tablet PRN Reason: Forms: Return to Work [facility] - Follow up as needed ANAMIKA VILLATORO PA-C [Primary Care Provider] - 05/24/18
[2018-05-22] MEDS ORDERED: AZITHROMYCIN 250 MG TABLET PO ONE (14:26)
[2018-05-22] MEDS ORDERED: CEFTRIAXONE INJ 250 MG VIAL IV ONE (14:27)
[2018-05-22 14:45] LABS: T.VAGINALIS (WET MOUNT) NO TRICHOMONAS SEEN; YEAST (WET MOUNT) YEAST SEEN
[2018-05-22 14:46] LABS: BACTERIA (WET MOUNT) 4+ BACTERIA SEEN; EPITHELIALS (WET MOUNT) 4+ EPITHELIALS SEEN; RBCS (WET MOUNT) RARE RBCS SEEN; WBCS (WET MOUNT) FEW WBCS SEEN
[2018-05-22] MEDS ORDERED: FLUCONAZOLE 100 MG TABLET PO ONE (15:04)
[2018-05-22 15:18] LABS: CHLAM PCR NOT DETECTED (NOT DETECT); GON PCR NOT DETECTED (NOT DETECT)
[2018-05-22 16:18] VITALS: BP 120/68
== END 2018-05-22 16:18 | disposition home or self-care (01) ==
LOC: ER 12:51
DX: B37.3 Candidiasis of vulva and vagina (principal); N76.0 Acute vaginitis; B96.89 Other specified bacterial agents as the cause of diseases classified elsewhere; R11.2 Nausea with vomiting, unspecified; R19.7 Diarrhea, unspecified; R00.0 Tachycardia, unspecified; F17.200 Nicotine dependence, unspecified, uncomplicated; Z88.1 Allergy status to other antibiotic agents; Z88.0 Allergy status to penicillin; Z88.8 Allergy status to other drugs, medicaments and biological substances
CPT/HCPCS: 99283; 96375; 96365; 36415; 87210; 84703; 81001; 87491; 87591; Q0144; S0119; J1885; J7050; J0696; J3490

== ENCOUNTER 2018-08-04 19:00 | Emergency (ER) | payer SELFPAY ==
--- NOTE | 2018-08-04 19:50 | ER Document Report ---
ED General - General Chief Complaint: Chest Pain Stated Complaint: ABDOMINAL PAIN Time Seen by Provider: 08/04/18 19:35 Mode of Arrival: Ambulatory Information source: Patient, Relative Notes: Patient is a 28-year-old female comes emergency room with multiple complaints. Patient states she started having back pain and stomach pain for the past 3 days. She has had severe nausea denies any diarrhea she has been constipated and had taken a laxative and has had 3 bowel movements today. Her pain symptoms from the left back and rib area around to the left anterior ribs and upper abdomen. Patient denies any traumatic incident. Patient has a significant history of surgeries to include multiple laparoscopic surgeries she has had a ruptured uterus secondary to surgery per patient. Per patient also she had been seen here in this facility diagnosed with a 2 mm kidney stone went home came back and she had a 8 mm stone that was at the proximal kidney occluded it was unable to urinate and had a nephrostomy tube placement up in [facility]. This was approximately 4 years ago so she has had a partial hysterectomy and multiple other surgeries. She also has a history of migraines and states her migraines have been increasing and that she blames this on having lost her insurance and that recently regaining that she is now been put back on her medications but it has not taken total effect yet. Patient states she is here because she cannot handle the pain anymore. She denies any dysuria. Patient did tell me that she had been constipated for a few days and took laxatives which seemed to start working today where she had 3 bowel movements. TRAVEL OUTSIDE OF THE [place] IN LAST 30 DAYS: No - HPI Onset: Other - 3 days Onset/Duration: Constant, Worse Quality of pain: Sharp, Stabbing. denies: No pain Severity: Moderate Pain Level: 3 Context: Patient denies any known trauma Associated symptoms: Nausea, Vomiting. denies: Diarrhea, Earache, Leg swelling , Rhinnorhea Exacerbated by: Movement Relieved by: Denies Similar symptoms previously: Yes Recently seen / treated by doctor: No - Related Data Allergies/Adverse Reactions: nitrofurantoin [From Macrobid] Allergy (Mild, Verified 08/04/18 19:02) Generalized Itching nitrofurantoin macrocrystalline [From Macrobid] Allergy (Mild, Verified 19:02) Generalized Itching Penicillins Allergy (Mild, Verified 08/04/18 19:02) Generalized Itching promethazine HCl [From Phenergan] Allergy (Mild, Verified 08/04/18 19:02) Generalized Itching amoxicillin [Amoxicillin] Allergy (Verified 08/04/18 19:02) Generalized Itching Past Medical History - General Information source: Patient, Relative - Social History Smoking Status: Current Every Day Smoker Cigarette use (# per day): Yes Chew tobacco use (# tins/day): No Smoking Education Provided: Yes Frequency of alcohol use: Rare Drug Abuse: None Lives with: Family Family History: Reviewed & Not Pertinent Patient has suicidal ideation: No Patient has homicidal ideation: No - Past Medical History Cardiac Medical History: Reports: None Pulmonary Medical History: Reports: None EENT Medical History: Reports: None Neurological Medical History: Reports: Hx Migraine, Hx Seizures - pseudoseizures Endocrine Medical History: Reports: None Renal/ Medical History: Reports: Hx Kidney Stones, Hx Ovarian Cysts - 06/2013 , Other - Has had a history of nephrostomy tube placement. Denies: Hx Peritoneal Dialysis Malignancy Medical History: Reports: None GI Medical History: Reports: Hx Gastroesophageal Reflux Disease, Hx Irritable Bowel - for 5 years Psychiatric Medical History: Reports: Hx Anxiety, Hx Depression, Hx Post Traumatic Stress Disorder - severe panic disorder Traumatic Medical History: Reports: None Infectious Medical History: Reports: None Past Surgical History: Reports: Hx Section - x2, Hx Cholecystectomy - 2011, Hx Hysterectomy, Hx Kidney (Renal Surgery) - nephrostomy tube, Hx Tonsillectomy - 13 yo - Immunizations Immunizations up to date: Yes Hx Diphtheria, Pertussis, Tetanus Vaccination: Yes Hx Pneumococcal Vaccination: 11/23/09 Review of Systems - Review of Systems Constitutional: No symptoms reported EENT: No symptoms reported Cardiovascular: No symptoms reported Respiratory: Hurts to breathe, Short of breath Gastrointestinal: Abdomen distended, Abdominal pain, Nausea, Vomiting. denies: Diarrhea Genitourinary: Flank pain. denies: Dysuria, Discharge, Frequency, Hematuria, Incontinence, Urgency, Retention Female Genitourinary: See HPI. denies: Vaginal bleeding, Painful intercourse Musculoskeletal: Back pain, Muscle pain. denies: Neck pain, Leg swelling, Ankle swelling Skin: No symptoms reported, Change in color Hematologic/Lymphatic: No symptoms reported Neurological/Psychological: No symptoms reported -: Yes All other systems reviewed and negative Physical Exam - Vital signs Vitals: Temp Pulse Resp BP Pulse Ox 97.5 F 86 18 121/67 98 08/04/18 19:12 08/04/18 19:12 08/04/18 19:12 08/04/18 19:12 08/04/18 19:12 Course - Re-evaluation Re-evalutation: 08/04/18 23:45 I worked patient up pretty extensively since she has had a lot of planes about the hospital and not catching some diagnosis is that she had said we should have caught. Her CT came back showing that there was no hydronephrosis no urinary symptoms type come problems did have some fluid in her colon which radiologist read as possible by diarrheal type of presentation but that was probably the laxatives. Patient's discomfort on the right left-sided flank pain with inspiration is most likely to be related to a costochondritis Presentation or a pulled muscle in her thoracic area. I am treating patient with some Levsin for abdominal cramping and I am going to go ahead and give her a 6 pill packet of hydrocodone for her muscle back pain. She can follow-up with her primary care on discharge. 08/04/18 23:46 patient seems unhappy that I cannot find a cause for her discomfort and pain. Although she has been to the facility multiple times for different presentations of pain. - Vital Signs Vital signs: Temp Pulse Resp BP Pulse Ox 97.5 F 86 18 121/67 98 08/04/18 19:12 08/04/18 19:12 08/04/18 19:12 08/04/18 19:12 08/04/18 19:12 - Laboratory Result Diagrams: 08/04/18 20:15 08/04/18 20:15 Laboratory results interpreted by me: 08/04/18 08/04/18 20:15 21:23 Chloride 108 H Urine Ascorbic Acid 40 H Discharge - Discharge Clinical Impression: Costochondritis, acute Abdominal pain Qualifiers: Abdominal location: generalized Qualified Code(s): R10.84 - Generalized abdominal pain Condition: Stable Disposition: HOME, SELF-CARE Instructions: Abdominal Pain ([facility]), Costochondritis ([facility]) Additional Instructions: 1. Home and rest. 2 medications prescribed. 3 need to follow-up with your primary care provider for further evaluations. At this point it does not look to be urinary in nature as we discussed today observe the gases level I can only attribute to your vitamin C taking and reason we did the CT was because that can obscure blood in the urine and can also obscure any kind of infection. Your labs otherwise normal. At this point I think the inspiration may be a pleurisy type presentation so we will will place you on day the medication for pain and inflammation. Should you have any concerns or problems return to ER for recheck. Prescriptions: Hyoscyamine Sulfate [Levsin 0.125 Tablet] 0.25 mg PO QID PRN #20 tablet PRN Reason: Prednisone [Sterapred Ds] 10 mg PO ASDIR PRN #1 tab.ds.pk PRN Reason: Tramadol HCl 50 mg PO TID PRN #10 tablet PRN Reason: Forms: Elevated Blood Pressure Referrals: ANAMIKA VILLATORO PA-C [Primary Care Provider] - Follow up as needed
[2018-08-04] MEDS ORDERED: ONDANSETRON 4 MG TAB.RAPDIS PO ONE (19:53)
[2018-08-04] MEDS ORDERED: KETOROLAC TROMETHAMINE INJ/PF 30 MG/1 ML SDV IV ONE (19:53)
[2018-08-04] MEDS ORDERED: NORMAL SALINE 1000 ML 1,000 ML IV ONE (20:03)
[2018-08-04 20:34] LABS: ABSOLUTE EOSINOPHILS # (AUTO) 0.2 10^3/uL (0.0-0.6); ABSOLUTE LYMPHOCYTES (AUTO) 2.7 10^3/uL (0.5-4.7); ABSOLUTE MONOCYTES (AUTO) 0.5 10^3/uL (0.1-1.4); BASOPHILS % (AUTO) 0.4 % (0-2); EOSINOPHILS % (AUTO) 3.7 % (0-6); HEMATOCRIT 41.9 % (36.0-47.0); HEMOGLOBIN 14.4 g/dL (12.0-15.5); LYMPHOCYTES % (AUTO) 41.4 % (13-45); MEAN CORPUSCULAR HEMOGLOBIN 33.1 pg (27.0-33.4); MEAN CORPUSCULAR HGB CONC 34.3 g/dL (32.0-36.0); MEAN CORPUSCULAR VOLUME 97 fl (80-97); MONOCYTES % (AUTO) 8.5 % (3-13); PLATELET COUNT 318 10^3/uL (150-450); RED BLOOD COUNT 4.34 10^6/uL (3.72-5.28); RED CELL DISTRIBUTION WIDTH 13.2 % (11.5-14.0); TOTAL CELLS COUNTED % (AUTO) 100 %; WHITE BLOOD COUNT 6.4 10^3/uL (4.0-10.5)
[2018-08-04 20:42] LABS: ALANINE AMINOTRANSFERASE 37 U/L (9-52); ALBUMIN 3.8 g/dL (3.5-5.0); ALKALINE PHOSPHATASE 58 U/L (38-126); ANION GAP 7 (5-19); ASPARTATE AMINO TRANSFERASE 18 U/L (14-36); BILIRUBIN,DIRECT 0.2 mg/dL (0.0-0.4); BILIRUBIN,TOTAL 0.4 mg/dL (0.2-1.3); BLOOD UREA NITROGEN 14 mg/dL (7-20); CALCIUM 9.3 mg/dL (8.4-10.2); CARBON DIOXIDE 26 mmol/L (22-30); CHLORIDE 108 mmol/L (98-107); GLUCOSE 79 mg/dL (75-110); LIPASE 174.7 U/L (23-300); POTASSIUM 4.1 mmol/L (3.6-5.0); SODIUM 141.4 mmol/L (137-145); TOTAL PROTEIN 6.3 g/dL (6.3-8.2)
[2018-08-04] MEDS ORDERED: MORPHINE SULFATE 10 MG/ML INJ IV ONE (21:36)
[2018-08-04 22:08] LABS: APPEARANCE,URINE SLIGHTLY-CLOUDY; BILIRUBIN,URINE NEGATIVE (NEGATIVE); COLOR,URINE YELLOW; GLUCOSE, URINE NEGATIVE (NEGATIVE); KETONES,URINE NEGATIVE (NEGATIVE); LEUKOCYTE ESTERASE,URINE NEGATIVE (NEGATIVE); NITRITE,URINE NEGATIVE (NEGATIVE); PROTEIN,URINE NEGATIVE (NEGATIVE); URINE SPECIFIC GRAVITY 1.026; UROBILINOGEN,URINE NEGATIVE mg/dL (<2.0)
[2018-08-04 22:16] LABS: URINE AMPHETAMINES SCREEN NEGATIVE; URINE BARBITURATES SCREEN NEGATIVE; URINE BENZODIAZEPINES SCREEN NEGATIVE; URINE COCAINE SCREEN NEGATIVE; URINE MARIJUANA (THC) SCREEN NEGATIVE; URINE METHADONE SCREEN NEGATIVE; URINE PHENCYCLIDINE SCREEN NEGATIVE
--- NOTE | 2018-08-04 23:20 | RADIOLOGY REPORT (SQ) ---
CT ABDOMEN PELVIS WITHOUT IV CONTRAST HISTORY: Left flank pain. COMPARISON: 01/19/2017 TECHNIQUE: CT scan of the abdomen and pelvis. This exam was performed according to our departmental dose-optimization program, which includes automated exposure control, adjustment of the mA and/or kV according to patient size and/or use of iterative reconstruction technique. FINDINGS: Lung bases are clear. No pleural or pericardial effusions. Liver, spleen, pancreas, and adrenal glands are unremarkable. Cholecystectomy clips are present. The kidneys are normal without hydronephrosis. No urinary tract calculus or obstructive uropathy. No bowel obstruction. Appendix is normal. Colon is filled with fluid suggesting a diarrheal illness. No adenopathy or ascites. The aorta is normal caliber without dissection or aneurysm. No abdominal wall hernia is seen. The osseous structures are intact. IMPRESSION: No urinary tract calculus or obstructive uropathy. Colon is filled with fluid suggesting a diarrheal illness.
[2018-08-04] MEDS ORDERED: HYOSCYAMINE SULFATE 0.125 MG TABLET PO ONE (23:38)
[2018-08-05 00:03] VITALS: BP 100/55
--- NOTE | 2018-08-05 00:21 | EKG REPORT ---
SEVERITY:- NORMAL ECG - SINUS RHYTHM : Confirmed by: Tanisha Gonzalez 05-Aug-2018 00:21:09
== END 2018-08-05 01:10 | disposition home or self-care (01) ==
LOC: ER 19:00
DX: R10.84 Generalized abdominal pain (principal); M94.0 Chondrocostal junction syndrome [Tietze]; F17.210 Nicotine dependence, cigarettes, uncomplicated
CPT/HCPCS: 93005; 99285; 96361; 96374; 96375; 36415; 83690; 85025; 80053; 81001; 80307; 85379; 74176; 93010; S0119; J3490; J1885; J2270

== ENCOUNTER 2018-10-08 17:44 | Emergency (ER) | payer SELFPAY ==
[2018-10-08] MEDS ORDERED: NORMAL SALINE 1000 ML 1,000 ML IV ONE (18:18)
--- NOTE | 2018-10-08 18:18 | ER Document Report ---
ED Medical Screen (RME) - General Chief Complaint: Abdominal Cramping Stated Complaint: FEVER, NECK/JAW PAIN, DIARRHEA Time Seen by Provider: 10/08/18 18:03 Notes: 28-year-old female to emergency room department complaining of multiple symptoms. Complaining of fever, sore throat, ear pain, eye pain, chest pain, neck pain, body aches and generally not feeling well I have greeted and performed a rapid initial assessment of this patient. A comprehensive ED assessment and evaluation of the patient, analysis of test results and completion of the medical decision making process will be conducted by additional ED providers. TRAVEL OUTSIDE OF THE [place] IN LAST 30 DAYS: No - Related Data Allergies/Adverse Reactions: nitrofurantoin [From Macrobid] Allergy (Mild, Verified 08/04/18 19:02) Generalized Itching nitrofurantoin macrocrystalline [From Macrobid] Allergy (Mild, Verified 19:02) Generalized Itching Penicillins Allergy (Mild, Verified 08/04/18 19:02) Generalized Itching promethazine HCl [From Phenergan] Allergy (Mild, Verified 08/04/18 19:02) Generalized Itching amoxicillin [Amoxicillin] Allergy (Verified 08/04/18 19:02) Generalized Itching Past Medical History - Social History Chew tobacco use (# tins/day): No Frequency of alcohol use: None Drug Abuse: None Neurological Medical History: Reports: Hx Migraine, Hx Seizures - pseudoseizures Renal/ Medical History: Reports: Hx Kidney Stones, Hx Ovarian Cysts - 2012. Denies: Hx Peritoneal Dialysis GI Medical History: Reports: Hx Gastroesophageal Reflux Disease, Hx Irritable Bowel - for 5 years Psychiatric Medical History: Reports: Hx Anxiety, Hx Depression, Hx Post Traumatic Stress Disorder - severe panic disorder Past Surgical History: Reports: Hx Section - x2, Hx Cholecystectomy - 2010, Hx Hysterectomy, Hx Kidney (Renal Surgery) - nephrostomy tube, Hx Tonsillectomy - 13 yo - Immunizations Immunizations up to date: Yes Hx Diphtheria, Pertussis, Tetanus Vaccination: Yes Physical Exam - Vital signs Vitals: Temp Pulse Resp BP Pulse Ox 98.3 F 96 16 131/84 H 97 10/08/18 17:53 10/08/18 17:53 10/08/18 17:53 10/08/18 17:53 10/08/18 17:53 Interpretation: Normal - General General appearance: Appears well, Alert - HEENT Head: Normocephalic, Atraumatic Eyes: Normal Pupils: PERRL - Respiratory Respiratory status: No respiratory distress Chest status: Nontender Breath sounds: Normal Chest palpation: Normal - Cardiovascular Rhythm: Regular Heart sounds: Normal auscultation Murmur: No - Abdominal Inspection: Normal Distension: No distension Bowel sounds: Normal Tenderness: Nontender Organomegaly: No organomegaly - Back Back: Normal, Nontender - Extremities General upper extremity: Normal inspection, Nontender, Normal color, Normal ROM , Normal temperature General lower extremity: Normal inspection, Nontender, Normal color, Normal ROM , Normal temperature, Normal weight bearing. No: Alfred's sign - Neurological Neuro grossly intact: Yes Cognition: Normal Orientation: AAOx4 Eugenio Coma Scale Eye Opening: Spontaneous [place] Coma Scale Verbal: Oriented Eugenio Coma Scale Motor: Obeys Commands [place] Coma Scale Total: 15 Speech: Normal Motor strength normal: LUE, RUE, LLE, RLE Sensory: Normal - Psychological Associated symptoms: Normal affect, Normal mood - Skin Skin Temperature: Warm Skin Moisture: Dry Skin Color: Normal Course - Vital Signs Vital signs: Temp Pulse Resp BP Pulse Ox 98.3 F 96 16 131/84 H 97 10/08/18 17:53 10/08/18 17:53 10/08/18 17:53 10/08/18 17:53 10/08/18 17:53 Doctor's Discharge - Discharge Referrals: ANAMIKA VILLATORO PA-C [Primary Care Provider] - Follow up as needed
[2018-10-08] MEDS ORDERED: KETOROLAC TROMETHAMINE INJ/PF 30 MG/1 ML SDV IV ONE (18:19)
[2018-10-08] MEDS ORDERED: HALOPERIDOL LACTATE INJ 5 MG/1 ML VIAL IV ONE (19:33)
--- NOTE | 2018-10-08 20:03 | RADIOLOGY REPORT (SQ) ---
EXAM DESCRIPTION: CHEST SINGLE VIEW COMPLETED DATE/TIME: 10/08/2018 7:51 pm REASON FOR STUDY: cough COMPARISON: None. EXAM PARAMETERS: NUMBER OF VIEWS: One view. TECHNIQUE: Single frontal radiographic view of the chest acquired. RADIATION DOSE: NA LIMITATIONS: None. FINDINGS: LUNGS AND PLEURA: No opacities, masses or pneumothorax. No pleural effusion. MEDIASTINUM AND HILAR STRUCTURES: No masses. Contour normal. HEART AND VASCULAR STRUCTURES: Heart normal in size. Normal vasculature. BONES: No acute findings. HARDWARE: None in the chest. OTHER: No other significant finding. IMPRESSION: NO ACUTE RADIOGRAPHIC FINDING IN THE CHEST. TECHNICAL DOCUMENTATION: JOB ID: [id number] [employer]- All Rights Reserved Reading location - IP/workstation name: [email or web address]
[2018-10-08 20:10] LABS: ABSOLUTE EOSINOPHILS # (AUTO) 0.2 10^3/uL (0.0-0.6); ABSOLUTE LYMPHOCYTES (AUTO) 2.3 10^3/uL (0.5-4.7); ABSOLUTE MONOCYTES (AUTO) 0.6 10^3/uL (0.1-1.4); ABSOLUTE NEUT (AUTO) 3.4 10^3/uL (1.7-8.2); BASOPHILS % (AUTO) 0.2 % (0-2); EOSINOPHILS % (AUTO) 2.4 % (0-6); HEMATOCRIT 40.6 % (36.0-47.0); HEMOGLOBIN 14.1 g/dL (12.0-15.5); LYMPHOCYTES % (AUTO) 36.4 % (13-45); MEAN CORPUSCULAR HEMOGLOBIN 33.8 pg (27.0-33.4); MEAN CORPUSCULAR HGB CONC 34.7 g/dL (32.0-36.0); MEAN CORPUSCULAR VOLUME 97 fl (80-97); PLATELET COUNT 301 10^3/uL (150-450); RED BLOOD COUNT 4.17 10^6/uL (3.72-5.28); RED CELL DISTRIBUTION WIDTH 13.3 % (11.5-14.0); TOTAL CELLS COUNTED % (AUTO) 100 %; WHITE BLOOD COUNT 6.4 10^3/uL (4.0-10.5)
[2018-10-08 20:27] LABS: A TYPE INFLUENZA AG NEGATIVE (NEGATIVE); B INFLUENZA AG NEGATIVE (NEGATIVE)
[2018-10-08 20:28] LABS: ALANINE AMINOTRANSFERASE 21 U/L (9-52); ALBUMIN 4.2 g/dL (3.5-5.0); ALKALINE PHOSPHATASE 69 U/L (38-126); ANION GAP 10 (5-19); ASPARTATE AMINO TRANSFERASE 16 U/L (14-36); BILIRUBIN,DIRECT 0.2 mg/dL (0.0-0.4); BILIRUBIN,TOTAL 0.4 mg/dL (0.2-1.3); BLOOD UREA NITROGEN 11 mg/dL (7-20); CALCIUM 9.4 mg/dL (8.4-10.2); CARBON DIOXIDE 27 mmol/L (22-30); CHLORIDE 104 mmol/L (98-107); GLUCOSE 85 mg/dL (75-110); POTASSIUM 3.9 mmol/L (3.6-5.0); SODIUM 141.4 mmol/L (137-145); TOTAL PROTEIN 6.9 g/dL (6.3-8.2)
[2018-10-08] MEDS ORDERED: DIPHENHYDRAMINE HCL 50 MG/ML VIAL IV ONE (20:37)
--- NOTE | 2018-10-08 20:44 | ER Document Report ---
ED General - General Chief Complaint: Abdominal Cramping Stated Complaint: FEVER, NECK/JAW PAIN, DIARRHEA Time Seen by Provider: 10/08/18 18:03 Notes: Patient is a 28-year old female with a past medical history of depression and anxiety who presents with a multitude of complaints that have varied depending upon which provider she has been speaking to. To me the patient complains primarily of a headache that has now resolved, sore throat, ear pain and body aches. Initially in triage she did complain of abdominal pain and nausea. She has also apparently complained of pain to her right eye. Symptoms have been ongoing and varying over the last 1 week. She has not trying to improve her symptoms, nothing worsens her symptoms. Multiple sick contacts that she reports have similar symptoms. She has not had fever here in the emergency department but reports that she has had a fever at home. She denies any meningismus, focal weakness, numbness, confusion or inability to tolerate oral intake. Denies a history of similar symptoms in the past. She has not seen her general physician regarding today's concerns. TRAVEL OUTSIDE OF THE [place] IN LAST 30 DAYS: No - Related Data Allergies/Adverse Reactions: nitrofurantoin [From Macrobid] Allergy (Mild, Verified 08/04/18 19:02) Generalized Itching nitrofurantoin macrocrystalline [From Macrobid] Allergy (Mild, Verified 19:02) Generalized Itching Penicillins Allergy (Mild, Verified 08/04/18 19:02) Generalized Itching promethazine HCl [From Phenergan] Allergy (Mild, Verified 08/04/18 19:02) Generalized Itching amoxicillin [Amoxicillin] Allergy (Verified 08/04/18 19:02) Generalized Itching Past Medical History - General Information source: Patient - Social History Smoking Status: Current Every Day Smoker Chew tobacco use (# tins/day): No Frequency of alcohol use: None Drug Abuse: None Lives with: Spouse/Significant other Family History: Reviewed & Not Pertinent Patient has suicidal ideation: No Patient has homicidal ideation: No Neurological Medical History: Reports: Hx Migraine, Hx Seizures - pseudoseizures Renal/ Medical History: Reports: Hx Kidney Stones, Hx Ovarian Cysts - 2012. Denies: Hx Peritoneal Dialysis GI Medical History: Reports: Hx Gastroesophageal Reflux Disease, Hx Irritable Bowel - for 5 years Psychiatric Medical History: Reports: Hx Anxiety, Hx Depression, Hx Post Traumatic Stress Disorder - severe panic disorder Past Surgical History: Reports: Hx Section - x2, Hx Cholecystectomy - 2011, Hx Hysterectomy, Hx Kidney (Renal Surgery) - nephrostomy tube, Hx Tonsillectomy - 13 yo - Immunizations Immunizations up to date: Yes Hx Diphtheria, Pertussis, Tetanus Vaccination: Yes Hx Pneumococcal Vaccination: 11/23/09 Review of Systems - Review of Systems Notes: Constitutional: Positive for subjective fever HENT: Positive for sore throat. Eyes: Negative for visual changes. Cardiovascular: Negative for chest pain. Respiratory: Positive for cough Gastrointestinal: Positive for abdominal pain and nausea Genitourinary: Negative for dysuria. Musculoskeletal: Negative for back pain. Skin: Negative for rash. Neurological: Positive for headache 10 point ROS negative except as marked above and in HPI. Physical Exam - Vital signs Vitals: Temp Pulse Resp BP Pulse Ox 98.3 F 96 16 131/84 H 97 10/08/18 17:53 10/08/18 17:53 10/08/18 17:53 10/08/18 17:53 10/08/18 17:53 Interpretation: Normal Notes: PHYSICAL EXAMINATION: GENERAL: Well-appearing, well-nourished and in no acute distress. HEAD: Atraumatic, normocephalic. EYES: Pupils equal round and reactive to light, extraocular movements intact, sclera anicteric, conjunctiva are normal. ENT: nares patent, oropharynx clear without exudates. Moist mucous membranes. NECK: Normal range of motion, supple without lymphadenopathy LUNGS: Breath sounds clear to auscultation bilaterally and equal. No wheezes rales or rhonchi. HEART: Regular rate and rhythm without murmurs ABDOMEN: Soft, nontender, normoactive bowel sounds. No guarding, no rebound. No masses appreciated. EXTREMITIES: Normal range of motion, no pitting or edema. No cyanosis. NEUROLOGICAL: No focal neurological deficits. Moves all extremities spontaneously and on command. PSYCH: Moderately anxious SKIN: Warm, Dry, normal turgor, no rashes or lesions noted. Course - Re-evaluation Re-evalutation: 10/08/18 20:41 Patient presents with multiple vague complaints that did not appear to be concerning for any acute life-threatening pathology. Patient's complaints varied from provider to provider and she has complained of all of the following complaints at some point during her visit: Sore throat, right eye pain, right ear pain, shortness of breath, cough, fever, body aches, abdominal pain, diarrhea, nausea, headache, fatigue. Vitals are within normal limits at triage and at time of discharge. Labs are broadly unremarkable without any notable abnormalities. Physical examination is unremarkable. Patient has tolerated oral intake without difficulty. Patient was not noted to be in distress at any point during their ER visit. Patient has had resolution of her headache as well as nausea after receiving haloperidol IV. At this time, based on the reassuring evaluation, I do not suspect an acute NH, pulmonary embolus, aortic dissection, acute intra-abdominal pathology, stroke, or sepsis.Will discharge with return precautions and follow-up recommendations. Verbal discharge instructions given a the bedside and opportunity for questions given. Medication warnings reviewed. Patient is in agreement with this plan and has verbalized understanding of return precautions and the need for primary care follow-up in the next 24-72 hours. - Vital Signs Vital signs: Temp Pulse Resp BP Pulse Ox 98.8 F 100 20 123/76 100 10/08/18 21:20 10/08/18 21:20 10/08/18 21:20 10/08/18 21:20 10/08/18 21:20 - Laboratory Result Diagrams: 10/08/18 19:47 10/08/18 19:47 Laboratory results interpreted by me: 10/08/18 19:47 MCH 33.8 H - Diagnostic Test Radiology reviewed: Image reviewed, Reports reviewed Radiology results interpreted by me: 10/08/18 20:42 Chest x-ray: No acute infiltrate or pneumothorax Discharge - Discharge Clinical Impression: Multiple complaints, Viral syndrome Acute headache Qualifiers: Headache type: tension-type Intractability: not intractable Qualified Code(s): G44.209 - Tension-type headache, unspecified, not intractable Condition: Good Disposition: HOME, SELF-CARE Additional Instructions: You were seen today for multiple concerns. Your labs including flu testing, strep testing are all normal. Your chest x-ray is also normal. There are no signs of dehydration on your labs are on your vitals. The exact cause of your symptoms is uncertain but is likely related to a viral illness and should resolve in the next 1-2 weeks. Please return if you have any additional concerns including vomiting, inability to tolerate oral intake, passing out, or any other symptoms that are worrisome to you. Please follow-up with your primary care doctor within the next 24-48 hours. Referrals: ANAMIKA VILLATORO PA-C [Primary Care Provider] - Follow up as needed
[2018-10-08 21:31] VITALS: BP 123/76
== END 2018-10-08 21:24 | disposition home or self-care (01) ==
LOC: ER 17:44
DX: B34.9 Viral infection, unspecified (principal); G44.209 Tension-type headache, unspecified, not intractable; J02.9 Acute pharyngitis, unspecified; H92.09 Otalgia, unspecified ear; R10.9 Unspecified abdominal pain; R05 Cough; R11.0 Nausea; H57.11 Ocular pain, right eye; R53.83 Other fatigue; R06.02 Shortness of breath; R19.7 Diarrhea, unspecified; F17.200 Nicotine dependence, unspecified, uncomplicated; Z88.1 Allergy status to other antibiotic agents; Z88.0 Allergy status to penicillin; Z88.8 Allergy status to other drugs, medicaments and biological substances
CPT/HCPCS: 99284; 96361; 96374; 96375; 36415; 87070; 87880; 84703; 85025; 80053; 87804; 71045; J1200; J1630; J1885; J7030

== ENCOUNTER 2018-10-11 12:12 | Emergency (ER) | payer SELFPAY ==
--- NOTE | 2018-10-11 13:02 | ER Document Report ---
ED Medical Screen (RME) - General Chief Complaint: Diarrhea Stated Complaint: VOMITING Time Seen by Provider: 10/11/18 12:50 Notes: Patient is a 28-year-old female that presents to the emergency department for chief complaint of nausea, decreased appetite, diarrhea, and neck pain. Patient was recently seen in the emergency department, for similar symptoms, but they persisted so she has decided come back to the emergency department to be reevaluated. ROS: Other than noted above, the 12 point review of systems was reviewed with the patient and were negative, all pertinent findings are included in the HPI. PHYSICAL EXAMINATION: Vital signs reviewed. GENERAL: Well-appearing, well-nourished and in no acute distress. HEAD: Atraumatic, normocephalic. EYES: Pupils equal round extraocular movements intact, conjunctiva are normal. ENT: Nares patent NECK: Normal range of motion CV: Heart regular rate and rhythm LUNGS: No respiratory distress Musculoskeletal: Normal range of motion NEUROLOGICAL: Normal speech PSYCH: Normal mood, normal affect. MDM: Patient seen and examined for rapid initial assessment. Vital signs reviewed. A comprehensive ED assessment and evaluation of the patient, analysis of test results and completion of the medical decision making process will be conducted by additional ED providers. *Note is created using voice recognition software and may contain spelling, syntax or grammatical errors. TRAVEL OUTSIDE OF THE [place] IN LAST 30 DAYS: No - Related Data Allergies/Adverse Reactions: nitrofurantoin [From Macrobid] Allergy (Mild, Verified 10/11/18 12:20) Generalized Itching nitrofurantoin macrocrystalline [From Macrobid] Allergy (Mild, Verified 12:20) Generalized Itching Penicillins Allergy (Mild, Verified 10/11/18 12:20) Generalized Itching promethazine HCl [From Phenergan] Allergy (Mild, Verified 10/11/18 12:20) Generalized Itching amoxicillin [Amoxicillin] Allergy (Verified 10/11/18 12:20) Generalized Itching Past Medical History - Social History Chew tobacco use (# tins/day): No Frequency of alcohol use: Occasional Drug Abuse: None Neurological Medical History: Reports: Hx Migraine, Hx Seizures - pseudoseizures Renal/ Medical History: Reports: Hx Kidney Stones, Hx Ovarian Cysts - 2012. Denies: Hx Peritoneal Dialysis GI Medical History: Reports: Hx Gastroesophageal Reflux Disease, Hx Irritable Bowel - for 5 years Psychiatric Medical History: Reports: Hx Anxiety, Hx Depression, Hx Post Traumatic Stress Disorder - severe panic disorder Past Surgical History: Reports: Hx Abdominal Surgery, Hx Section - x2, Hx Cholecystectomy - 2011, Hx Hysterectomy, Hx Kidney (Renal Surgery) - nephrostomy tube, Hx Tonsillectomy - 13 yo - Immunizations Immunizations up to date: Yes Hx Diphtheria, Pertussis, Tetanus Vaccination: Yes Physical Exam - Vital signs Vitals: Temp Pulse Resp BP Pulse Ox 98.6 F 91 14 129/84 H 99 10/11/18 12:23 10/11/18 12:23 10/11/18 12:23 10/11/18 12:23 10/11/18 12:23 Course - Vital Signs Vital signs: Temp Pulse Resp BP Pulse Ox 98.6 F 91 14 129/84 H 99 10/11/18 12:23 10/11/18 12:23 10/11/18 12:23 10/11/18 12:23 10/11/18 12:23 Doctor's Discharge - Discharge Referrals: ANAMIKA VILLATORO PA-C [Primary Care Provider] - Follow up as needed
[2018-10-11] MEDS ORDERED: NORMAL SALINE 1000 ML 1,000 ML IV ONE (13:10)
[2018-10-11] MEDS ORDERED: ONDANSETRON HCL INJ/PF 4 MG/2 ML SDV IV ONE (13:10)
[2018-10-11 14:42] LABS: ABSOLUTE EOSINOPHILS # (AUTO) 0.1 10^3/uL (0.0-0.6); ABSOLUTE LYMPHOCYTES (AUTO) 1.5 10^3/uL (0.5-4.7); ABSOLUTE MONOCYTES (AUTO) 0.5 10^3/uL (0.1-1.4); ABSOLUTE NEUT (AUTO) 4.5 10^3/uL (1.7-8.2); BASOPHILS % (AUTO) 0.4 % (0-2); EOSINOPHILS % (AUTO) 1.7 % (0-6); HEMATOCRIT 41.7 % (36.0-47.0); HEMOGLOBIN 14.7 g/dL (12.0-15.5); LYMPHOCYTES % (AUTO) 22.2 % (13-45); MEAN CORPUSCULAR HEMOGLOBIN 33.7 pg (27.0-33.4); MEAN CORPUSCULAR HGB CONC 35.2 g/dL (32.0-36.0); MEAN CORPUSCULAR VOLUME 96 fl (80-97); MONOCYTES % (AUTO) 7.6 % (3-13); PLATELET COUNT 274 10^3/uL (150-450); RED BLOOD COUNT 4.36 10^6/uL (3.72-5.28); RED CELL DISTRIBUTION WIDTH 13.2 % (11.5-14.0); SEGMENTED NEUTROPHILS % (AUTO) 68.1 % (42-78); TOTAL CELLS COUNTED % (AUTO) 100 %; WHITE BLOOD COUNT 6.6 10^3/uL (4.0-10.5)
[2018-10-11 14:54] LABS: A TYPE INFLUENZA AG NEGATIVE (NEGATIVE); B INFLUENZA AG NEGATIVE (NEGATIVE)
[2018-10-11 14:58] LABS: ALANINE AMINOTRANSFERASE 35 U/L (9-52); ALBUMIN 4.1 g/dL (3.5-5.0); ALKALINE PHOSPHATASE 69 U/L (38-126); ANION GAP 11 (5-19); APPEARANCE,URINE SLIGHTLY-CLOUDY; ASPARTATE AMINO TRANSFERASE 19 U/L (14-36); BILIRUBIN,DIRECT 0.1 mg/dL (0.0-0.4); BILIRUBIN,TOTAL 0.5 mg/dL (0.2-1.3); BILIRUBIN,URINE NEGATIVE (NEGATIVE); BLOOD UREA NITROGEN 10 mg/dL (7-20); CALCIUM 9.3 mg/dL (8.4-10.2); CARBON DIOXIDE 24 mmol/L (22-30); CHLORIDE 108 mmol/L (98-107); COLOR,URINE YELLOW; GLUCOSE 101 mg/dL (75-110); GLUCOSE, URINE NEGATIVE (NEGATIVE); KETONES,URINE NEGATIVE (NEGATIVE); LEUKOCYTE ESTERASE,URINE NEGATIVE (NEGATIVE); LIPASE 354.4 U/L (23-300); NITRITE,URINE NEGATIVE (NEGATIVE); POTASSIUM 4.1 mmol/L (3.6-5.0); PROTEIN,URINE NEGATIVE (NEGATIVE); SODIUM 142.7 mmol/L (137-145); URINE SPECIFIC GRAVITY 1.008; UROBILINOGEN,URINE NEGATIVE mg/dL (<2.0)
--- NOTE | 2018-10-11 15:56 | ER Document Report ---
ED General - General Chief Complaint: Diarrhea Stated Complaint: VOMITING Time Seen by Provider: 10/11/18 12:50 Notes: Patient is here complaining of persistent, profuse diarrhea clear without blood , for the past week. She denies any nausea or vomiting. She says that anytime she drinks any liquid or takes any solid food, she has diarrhea. She was here on Thursday to be checked for the same problem. She is also complaining of feeling "lethargic" and can barely walk she is so weak. She is complaining of cramping all over her body. Feels it is "tight" in her neck, jaw, and head. Says that she had 103 fever on Thursday. She had a complete workup on her visit here Thursday and everything was normal. She says that they were discussing doing a lumbar puncture but then decided not to do one. Patient is borderline lupus, with fibromyalgia. Also depression, PTSD, and suffers panic attacks. TRAVEL OUTSIDE OF THE [place] IN LAST 30 DAYS: No - Related Data Allergies/Adverse Reactions: nitrofurantoin [From Macrobid] Allergy (Mild, Verified 10/11/18 12:20) Generalized Itching nitrofurantoin macrocrystalline [From Macrobid] Allergy (Mild, Verified 12:20) Generalized Itching Penicillins Allergy (Mild, Verified 10/11/18 12:20) Generalized Itching promethazine HCl [From Phenergan] Allergy (Mild, Verified 10/11/18 12:20) Generalized Itching amoxicillin [Amoxicillin] Allergy (Verified 10/11/18 12:20) Generalized Itching Past Medical History - Social History Smoking Status: Current Every Day Smoker Chew tobacco use (# tins/day): No Frequency of alcohol use: Occasional Drug Abuse: None Family History: Reviewed & Not Pertinent Patient has suicidal ideation: No Patient has homicidal ideation: No Neurological Medical History: Reports: Hx Migraine, Hx Seizures - pseudoseizures Renal/ Medical History: Reports: Hx Kidney Stones, Hx Ovarian Cysts - 06/2013 GI Medical History: Reports: Hx Gastroesophageal Reflux Disease, Hx Irritable Bowel - for 5 years Musculoskeletal Medical History: Reports Hx Fibromyalgia, Reports Other - "Borderline lupus" Psychiatric Medical History: Reports: Hx Anxiety, Hx Depression, Hx Post Traumatic Stress Disorder - severe panic disorder, Other - Panic attacks Past Surgical History: Reports: Hx Abdominal Surgery, Hx Section - x2, Hx Cholecystectomy - 2011, Hx Hysterectomy, Hx Kidney (Renal Surgery) - nephrostomy tube, Hx Tonsillectomy - 13 yo - Immunizations Immunizations up to date: Yes Hx Diphtheria, Pertussis, Tetanus Vaccination: Yes Hx Pneumococcal Vaccination: 11/23/09 Review of Systems - Review of Systems Notes: REVIEW OF SYSTEMS: Patient answers affirmatively to almost every question asked of her. CONSTITUTIONAL : Fever of 103 a few days ago. EENT: Denies eye, ear, nose or mouth or throat pain or other symptoms. CARDIOVASCULAR: Occasional chest pain. RESPIRATORY: Denies shortness of breath, cough or congestion.. GASTROINTESTINAL: Denies abdominal pain or nausea, vomiting, but has profuse, repeated diarrhea. GENITOURINARY: Denies difficulty or painful urinating, urinary frequency, blood in urine. MUSCULOSKELETAL: Has pain throughout her back. SKIN: Denies rash or skin lesions. NEUROLOGICAL: Denies LOC or altered mental status. Has headache. Denies sensory loss or motor deficits. ALL OTHER SYSTEMS REVIEWED AND NEGATIVE. Physical Exam - Vital signs Vitals: Temp Pulse Resp BP Pulse Ox 98.6 F 91 14 129/84 H 99 10/11/18 12:23 10/11/18 12:23 10/11/18 12:23 10/11/18 12:23 10/11/18 12:23 Interpretation: Normal Notes: PHYSICAL EXAMINATION: GENERAL: Well-appearing, in no acute distress. Anxious HEAD: Atraumatic, normocephalic. EYES: Pupils equal round and reactive to light, extraocular movements intact. ENT: oropharynx clear without exudates. Moist mucous membranes. NECK: Normal range of motion, supple. Easily moves head around and up and down without any apparent limitation or discomfort. LUNGS: Breath sounds clear and equal bilaterally. HEART: Regular rate and rhythm without murmurs. ABDOMEN: Soft, nontender. No guarding or rebound. No masses. BACK: No tenderness throughout entire back. EXTREMITIES: Normal range of motion without pain. NEUROLOGICAL: Normal speech, normal gait. Normal sensory, motor, and reflex exams. Awake, alert, and oriented x3. Cranial nerves normal. PSYCH: Normal mood, normal affect. SKIN: Warm, dry, no rashes. Course - Re-evaluation Re-evalutation: 10/11/18 19:32 Not sure what if any specific illness or condition is causing patient symptoms. Her workup has been essentially normal twice. She may have some viral illness. I am providing her with note for work for the next week. Stool for culture has been obtained and I will check on the results of that in the next couple of days. - Vital Signs Vital signs: Temp Pulse Resp BP Pulse Ox 98.6 F 75 16 136/88 H 98 10/11/18 12:23 10/11/18 16:30 10/11/18 16:30 10/11/18 16:30 10/11/18 16:30 - Laboratory Result Diagrams: 10/11/18 14:19 10/11/18 14:19 Laboratory results interpreted by me: 10/11/18 10/11/18 14:19 14:19 MCH 33.7 H Chloride 108 H Lipase 354.4 H 10/11/18 19:31 Almost all of the same lab tests as were done a few days ago were repeated and they all still normal with the exception of a lipase of 354. I pointed out to the patient that this level of lipase is not clinically significant and we do not considered pancreatitis until its triple the labs maximum level of 300 for this test. Discharge - Discharge Clinical Impression: Lethargy, Diarrhea, Viral syndrome Condition: Stable Disposition: HOME, SELF-CARE Additional Instructions: DIARRHEA, NON-SPECIFIC: Diarrhea means frequent, watery stools. There are many causes. Any problem that keeps the intestinal tract from absorbing water from the stool can lead to diarrhea. A sudden new diarrhea problem is usually caused by a virus, food sensitivity, toxic bacteria, or drugs. In this case, we expect the problem to go away soon. Testing is done only if you seem seriously ill from the diarrhea. If you have chronic diarrhea, or diarrhea that keeps coming back, we need to find out why. Chronic diarrhea can be due to inflammation of the bowels such as Crohn's disease or ulcerative colitis, food sensitivity such as intolerance to lactose or wheat protein, irritable bowel syndrome, and other problems. If your diarrhea is a significant problem but it's not clear why you have it, we' ll refer you to a specialist for further testing. During an episode of diarrhea, drink small amounts (two to six ounces) of clear liquids (soft drinks, sport drinks, herb teas, broth, etc). Take fluids frequently to prevent dehydration. It's usually not a problem to take mild anti- diarrhea medication such as Kaopectate or Pepto-Bismol. As the diarrhea eases, advance to small amounts of bland food (mashed potato, toast) for 24 hours. Call the physician if blood appears in your vomit or stool, if vomiting lasts longer than 24 hours, if the abdominal pain worsens or becomes localized to one area, if you develop high fever, or if you become lightheaded and weak. NORMAL EXAM AND WORKUP: At this time, your examination and workup show no significant abnormality. No significant abnormal physical findings were noted. All laboratory, EKG, and imaging (x-ray, CT scans, ultrasound) studies that were ordered show no significant abnormality. Although your examination and all studies that were ordered showed no significant abnormal finding, there are no examinations and no studies that are 100% accurate. There is always the possibility that some abnormality could exist and not be detected with physical examination or within the limits and capabilities of laboratory and other studies. You should return or follow up as you were instructed on your visit today for further evaluation if your symptoms do not resolve. VIRAL SYNDROME: The physician has diagnosed a most likely viral infection. Viruses not only cause "colds," but can cause many different symptoms including generalized aching, fever, headache, cough, diarrhea, nausea, vomiting, and fatigue. The treatment, for the most part, is simply relief of symptoms. This means that antibiotics are usually not given. Rest, fluids, pain medications and, occasionally, medication for the specific symptoms that are most bothersome will be prescribed. Use good handwashing to avoid passing the virus to others. Shared toys should be cleaned with disinfectant. Clean the toilets, sinks, and counter surfaces in bathrooms. Launder clothing in hot water. Contact the physician if you develop any new or unusual symptoms such as severe headache, stiff neck, high fever, chest pain, productive cough, or shortness of breath. You should be rechecked if you don't see marked improvement within seven to 10 days. INTRAVENOUS (I V) FLUIDS: As part of your care today, you received intravenous (IV) fluids. IV fluids are administered to patients who are dehydrated or to those who have certain chemical (electrolyte) abnormalities that need correcting. FOLLOW-UP CARE: If you have been referred to a physician for follow-up care, call the physician s office for an appointment as you were instructed or within the next two days. If you experience worsening or a significant change in your symptoms, notify the physician immediately or return to the Emergency Department at any time for re-evaluation. You are being provided a note for work until next Thursday. Rest, drink plenty of fluids, and return if you have new or worsening symptoms. Forms: Return to Work Referrals: ANAMIKA VILLATORO PA-C [NO LOCAL MD] - Follow up as needed
[2018-10-11 16:30] VITALS: BP 136/88
== END 2018-10-11 16:30 | disposition home or self-care (01) ==
LOC: ER 12:12
DX: B34.9 Viral infection, unspecified (principal); R19.7 Diarrhea, unspecified; R53.83 Other fatigue; R50.9 Fever, unspecified; F17.200 Nicotine dependence, unspecified, uncomplicated
CPT/HCPCS: 99284; 96361; 96374; 36415; 87045; 87205; 83690; 85025; 80053; 81001; 87493; 87804; L1830; J2405; J7030

== ENCOUNTER → 2018-10-13 | Outpatient (CLI) | payer SELFPAY ==
[2018-10-13 14:34] LABS: LIPASE 125.7 U/L (23-300)
[2018-10-14 05:40] LABS: HEPATITIS A AB IGM Negative (Negative); HEPATITIS B CORE AB IGM Negative (Negative); HEPATITS B SURFACE ANTIGEN Negative (Negative)
[2018-10-14 09:59] LABS: HEPATITIS C VIRUS ANTIBODY <0.1 s/co ratio (0.0-0.9)
[2018-10-15 12:18] LABS: ANTINUCLEAR ANTIBODIES Negative (Negative)
== END ==
LOC: OD 12:41
PROVIDERS: ATTEND Nurse Practitioner Family
DX: R53.83 Other fatigue (principal); R74.8 Abnormal levels of other serum enzymes; R76.8 Other specified abnormal immunological findings in serum
CPT/HCPCS: 36415; 80074; 82150; 83690; 86038; 86701

== ENCOUNTER 2018-10-22 16:09 | Emergency (ER) | payer SELFPAY ==
[2018-10-22] MEDS ORDERED: SUMATRIPTAN SUCCINATE INJ/PF 6 MG/0.5 ML SDV SUBCUT ONE (17:55)
--- NOTE | 2018-10-22 17:58 | ER Document Report ---
ED Headache - General Chief Complaint: Headache Stated Complaint: HEADACHE Time Seen by Provider: 10/22/18 17:51 Mode of Arrival: Ambulatory Information source: Patient Notes: History of Present Illness Chief Complaint: [headache] [ ] History obtained from [patient] 28 years old female with a history of headache presents today with another episode of migraine headache. She has been taking Imitrex or Maxalt since she ran out of insurance could not get it. Associated with nausea no vomiting. No focal weaknesses no aura. Symptoms began: [today] Onset: [gradual] Timing: [constant] Quality: ["pain"] No different than prior severe headaches Intensity: [severe, but not worst ever] Location: [frontal] Aggravating factors: [none] Relieving factors: [none] Denies neck pain or stiffness Denies rash Denies visual loss or eye pain. Denies tick bite Denies head injury Denies weakness, numbness, incontinence, seizure, LOC Review of systems : All other systems negative as reviewed. CONSTITUTIONAL No fever. EYES No eye pain. ENT No URI symptoms, No sore throat, No ear pain. CARDIOVASCULAR No chest pain, No palpitations, No edema. RESPIRATORY No Cough, No SOB, No wheezing. GASTROINTESTINAL No abdominal pain, No nausea, No vomiting, No diarrhea, No constipation, No melena, No rectal bleeding. GENITOURINARY No UTI symptoms. MUSCULOSKELETAL No back pain. SKIN No Rash. NEUROLOGIC No paralysis, No parathesias. ENDOCRINE No polyuria. HEMO/LYMPATIC Patient does not bruise easily. PSYCHIATRIC No depression. Physical Exam CONSTITUTIONAL Vital signs reviewed, Comfortable, Alert and oriented X 3. HEAD Atraumatic, Normal cephalic. EYES No discharge from eye, Sclera are not injected, Extraocular muscles intact, Conjunctiva are normal.perrl,2mm, no photophobia, no nystagmus, fundi wnl. ENT Ears normal to inspection, Nose examination normal, Oropharynx normal, Mucous membranes pink, moist, normal in color. NECK Normal inspection, supple, Normal ROM, No jugular venous distention, No meningeal signs, no carotid bruit or tenderness. RESPIRATORY/CHEST Chest is non-tender, Breath sounds normal, No respiratory distress. CARDIOVASCULAR RRR, Heart sounds normal. ABDOMEN Abdomen is non-tender, No masses, Bowel sounds normal, No distension, No peritoneal signs. BACK Normal inspection. UPPER EXTREMITY Inspection normal, No cyanosis/clubbing/edema. LOWER EXTREMITY Inspection normal, No cyanosis/clubbing/edema, No calf tenderness. NEURO cn intact, no astreixis, no pronator drift, finger to nose testing coordinated bilaterally, 1+ deep tendon reflexes x 4 ext, down going babinski bilaterally , normal speech, Motor exam normal, Sensory exam normal. SKIN Skin is warm and dry, No rash. LYMPHATIC No adenopathy in neck. PSYCHIATRIC Normal affect. TRAVEL OUTSIDE OF THE [place] IN LAST 30 DAYS: No - HPI Notes: Dictated - Related Data Allergies/Adverse Reactions: nitrofurantoin [From Macrobid] Allergy (Mild, Verified 10/22/18 16:14) Generalized Itching nitrofurantoin macrocrystalline [From Macrobid] Allergy (Mild, Verified 16:14) Generalized Itching Penicillins Allergy (Mild, Verified 10/22/18 16:14) Generalized Itching promethazine HCl [From Phenergan] Allergy (Mild, Verified 10/22/18 16:14) Generalized Itching amoxicillin [Amoxicillin] Allergy (Verified 10/22/18 16:14) Generalized Itching Past Medical History - Social History Smoking Status: Current Every Day Smoker Cigarette use (# per day): No Chew tobacco use (# tins/day): No Smoking Education Provided: No Frequency of alcohol use: Occasional Drug Abuse: None Family History: Reviewed & Not Pertinent Patient has suicidal ideation: No Patient has homicidal ideation: No Neurological Medical History: Reports: Hx Migraine, Hx Seizures - pseudoseizures Renal/ Medical History: Reports: Hx Kidney Stones, Hx Ovarian Cysts - 2012. Denies: Hx Peritoneal Dialysis GI Medical History: Reports: Hx Gastroesophageal Reflux Disease, Hx Irritable Bowel - for 5 years Musculoskeletal Medical History: Reports Hx Fibromyalgia Psychiatric Medical History: Reports: Hx Anxiety, Hx Depression, Hx Post Traumatic Stress Disorder - severe panic disorder Past Surgical History: Reports: Hx Abdominal Surgery, Hx Section - x2, Hx Cholecystectomy - 2010, Hx Hysterectomy, Hx Kidney (Renal Surgery) - nephrostomy tube, Hx Tonsillectomy - 13 yo - Immunizations Immunizations up to date: Yes Hx Diphtheria, Pertussis, Tetanus Vaccination: Yes Hx Pneumococcal Vaccination: 11/23/09 Review of Systems - Review of Systems Notes: Dictated Physical Exam - Vital signs Vitals: Temp Pulse Resp BP Pulse Ox 97.7 F 69 14 97/56 L 97 10/22/18 16:31 10/22/18 16:31 10/22/18 16:31 10/22/18 16:31 10/22/18 16:31 - Notes Notes: Dictated Course - Re-evaluation Re-evalutation: 10/22/18 17:57 Given Imitrex subcu - Vital Signs Vital signs: Temp Pulse Resp BP Pulse Ox 97.7 F 69 14 97/56 L 97 10/22/18 16:31 10/22/18 16:31 10/22/18 16:31 10/22/18 16:31 10/22/18 16:31 Discharge - Discharge Clinical Impression: Migraine headache Qualifiers: Migraine type: unspecified Status migrainosus presence: without status migrainosus Intractability: not intractable Qualified Code(s): G43.909 - Migraine, unspecified, not intractable, without status migrainosus Condition: Fair Disposition: HOME, SELF-CARE Instructions: Headache ([facility]) Prescriptions: Rizatriptan Benzoate [[employer]] 10 mg PO DAILY #10 tab.rapdis Forms: Return to Work Referrals: ANUSHA PAEZ FNP-C [Primary Care Provider] - Follow up as needed
[2018-10-22 18:19] VITALS: BP 99/65
== END 2018-10-22 18:17 | disposition home or self-care (01) ==
LOC: ER 16:09
DX: G43.909 Migraine, unspecified, not intractable, without status migrainosus (principal); F17.200 Nicotine dependence, unspecified, uncomplicated; Z88.0 Allergy status to penicillin; Z88.3 Allergy status to other anti-infective agents; Z87.442 Personal history of urinary calculi; Z90.49 Acquired absence of other specified parts of digestive tract; Z90.710 Acquired absence of both cervix and uterus
CPT/HCPCS: 99284; 96372; J3030

== ENCOUNTER → 2019-01-25 | Outpatient (CLI) | payer BC ==
[2019-01-25 14:51] LABS: ALANINE AMINOTRANSFERASE 20 U/L (9-52); ALKALINE PHOSPHATASE 67 U/L (38-126); ANION GAP 11 (5-19); ASPARTATE AMINO TRANSFERASE 15 U/L (14-36); BILIRUBIN,DIRECT 0.2 mg/dL (0.0-0.4); BILIRUBIN,TOTAL 0.5 mg/dL (0.2-1.3); BLOOD UREA NITROGEN 17 mg/dL (7-20); CALCIUM 10.2 mg/dL (8.4-10.2); CARBON DIOXIDE 27 mmol/L (22-30); CHLORIDE 104 mmol/L (98-107); CHOLESTEROL 149.85 mg/dL (0-200); GLUCOSE 80 mg/dL (75-110); POTASSIUM 4.2 mmol/L (3.6-5.0); SODIUM 142.1 mmol/L (137-145); TOTAL PROTEIN 7.9 g/dL (6.3-8.2); TRIGLYCERIDES 40 mg/dL (<150)
[2019-01-25 15:03] LABS: DIRECT LDL 84 mg/dL (<100)
== END ==
LOC: LAB 14:07
PROVIDERS: ATTEND Physician Assistant
DX: R07.9 Chest pain, unspecified (principal); I10 Essential (primary) hypertension; R00.0 Tachycardia, unspecified
CPT/HCPCS: 36415; 80048; 80061; 80076; 83735; 84443

== ENCOUNTER 2019-01-27 09:09 | Emergency (ER) | payer BC ==
--- NOTE | 2019-01-27 10:31 | RADIOLOGY REPORT (SQ) ---
EXAM DESCRIPTION: CHEST 2 VIEWS COMPLETED DATE/TIME: 01/27/2019 10:13 am REASON FOR STUDY: fever, cough COMPARISON: 10/08/2018 TECHNIQUE: Frontal and lateral radiographic views of the chest acquired. NUMBER OF VIEWS: Two view. LIMITATIONS: Jewelry. FINDINGS: LUNGS AND PLEURA: No opacities, masses or pneumothorax. No pleural effusion. MEDIASTINUM AND HILAR STRUCTURES: No masses or contour abnormalities. HEART AND VASCULAR STRUCTURES: Heart normal size. No evidence for failure. BONES: No acute findings. HARDWARE: None in the chest. OTHER: No other significant finding. IMPRESSION: NO SIGNIFICANT RADIOGRAPHIC FINDING IN THE CHEST. TECHNICAL DOCUMENTATION: JOB ID: [id number] [employer]- All Rights Reserved Reading location - IP/workstation name: [email or web address]
[2019-01-27 10:54] LABS: A TYPE INFLUENZA AG NEGATIVE (NEGATIVE); B INFLUENZA AG NEGATIVE (NEGATIVE)
--- NOTE | 2019-01-27 11:00 | ER Document Report ---
HPI - HPI Time Seen by Provider: 01/27/19 09:39 Pain Level: 4 Notes: Patient is a 28-year-old female who presents to the emergency department with complaints of cough, runny nose, nasal congestion and difficulty breathing. Patient reports intermittent fever at home but states she has not checked her temperature. She reports that she has a productive cough with bilateral ear pain. - REPRODUCTIVE Reproductive: DENIES: : Past Medical History - General Information source: Patient - Social History Smoking Status: Current Every Day Smoker Chew tobacco use (# tins/day): No Frequency of alcohol use: None Family History: Reviewed & Not Pertinent Patient has suicidal ideation: No Patient has homicidal ideation: No Neurological Medical History: Reports: Hx Migraine, Hx Seizures - pseudoseizures Renal/ Medical History: Reports: Hx Kidney Stones, Hx Ovarian Cysts - 06/2013. Denies: Hx Peritoneal Dialysis GI Medical History: Reports: Hx Gastroesophageal Reflux Disease, Hx Irritable Bowel - for 5 years Musculoskeletal Medical History: Reports Hx Fibromyalgia Psychiatric Medical History: Reports: Hx Anxiety, Hx Depression, Hx Post Traumatic Stress Disorder - severe panic disorder Past Surgical History: Reports: Hx Abdominal Surgery, Hx Section - x2, Hx Cholecystectomy - 2011, Hx Hysterectomy, Hx Kidney (Renal Surgery) - nephrostomy tube, Hx Tonsillectomy - 13 yo - Immunizations Immunizations up to date: Yes Hx Diphtheria, Pertussis, Tetanus Vaccination: Yes Hx Pneumococcal Vaccination: 11/23/09 Vertical Provider Document - CONSTITUTIONAL Notes: PHYSICAL EXAMINATION: GENERAL: Well-appearing, well-nourished and in no acute distress. HEAD: Atraumatic, normocephalic. EYES: Pupils equal round and reactive to light, extraocular movements intact, conjunctiva are normal. ENT: Nares patent, oropharynx clear without exudates. Moist mucous membranes. NECK: Normal range of motion, supple without lymphadenopathy LUNGS: Breath sounds clear to auscultation bilaterally and equal. No wheezes rales or rhonchi. HEART: Regular rate and rhythm without murmurs ABDOMEN: Soft, nontender, nondistended abdomen. No guarding, no rebound. No masses appreciated. Female : deferred Musculoskeletal: Normal range of motion, no pitting or edema. No cyanosis. NEUROLOGICAL: Cranial nerves grossly intact. Normal speech, normal gait. Normal sensory, motor exams PSYCH: Normal mood, normal affect. SKIN: Warm, Dry, normal turgor, no rashes or lesions noted. - INFECTION CONTROL TRAVEL OUTSIDE OF THE [place] IN LAST 30 DAYS: No Course - Re-evaluation Re-evalutation: Patient physical examination is unremarkable. Influenza A/B is negative. Likely viral upper respiratory illness. Patient discharged home in stable condition. ED return precautions were discussed and patient verbalized understanding of same. - Vital Signs Vital signs: Temp Pulse Resp BP Pulse Ox 98.8 F 92 20 133/74 H 100 01/27/19 09:29 01/27/19 09:29 01/27/19 09:29 01/27/19 09:29 01/27/19 09:29 Discharge - Discharge Clinical Impression: Viral URI Condition: Stable Disposition: HOME, SELF-CARE Additional Instructions: Your symptoms are most likely due to a viral infection it should resolve over the next 7-14 days. You should take [id number] guanfacine per bottle instructions to help thin the mucus. For nasal congestion: I would recommend that you get [id number] oxymetazoline also known is afrin. Use only per bottle instructions and be sure to never use this for more than 3 days if you can develop severe rebound congestion. You may also use tylenol or ibuprofen as needed for aches and thorat discomfort. Please be sure to drink plenty of fluids and get rest. Return to the emergency department he began having difficulty breathing, chest pain, persistent vomiting, or any other symptoms that are concerning to you. Forms: Return to Work
[2019-01-27 11:17] VITALS: BP 123/77
== END 2019-01-27 11:17 | disposition home or self-care (01) ==
LOC: ER 09:09
DX: J06.9 Acute upper respiratory infection, unspecified (principal); B97.89 Other viral agents as the cause of diseases classified elsewhere; R05 Cough; R09.81 Nasal congestion; R06.9 Unspecified abnormalities of breathing; R50.9 Fever, unspecified; H92.03 Otalgia, bilateral; F17.200 Nicotine dependence, unspecified, uncomplicated
CPT/HCPCS: 71046; 87804; 99283

== ENCOUNTER 2019-06-14 16:22 | Emergency (ER) | payer BC ==
[2019-06-14 16:42] VITALS: BP 144/89
--- NOTE | 2019-06-14 18:02 | ER Document Report ---
ED Medical Screen (RME) - General Chief Complaint: Chest Pain Stated Complaint: SICK Time Seen by Provider: 06/14/19 17:45 Mode of Arrival: Ambulatory Information source: Patient Notes: Patient is a 29-year-old female with a history of anxiety who presents to the ER today for chest pain ongoing but worsening since her father in her brother's arms and her brother had to be committed to a psychiatric facility.. Patient states that this chest pain that radiates down her left arm and makes her right arm feel heavy is not her anxiety she thinks because she is on too many anxiety meds to still have symptoms, she states that her blood pressure is always elevated and she is concerned about her heart today. TRAVEL OUTSIDE OF THE [place] IN LAST 30 DAYS: No - Related Data Allergies/Adverse Reactions: nitrofurantoin [From Macrobid] Allergy (Mild, Verified 06/14/19 16:23) Generalized Itching nitrofurantoin macrocrystalline [From Macrobid] Allergy (Mild, Verified 06/14/19 16:23) Generalized Itching Penicillins Allergy (Mild, Verified 06/14/19 16:23) Generalized Itching promethazine HCl [From Phenergan] Allergy (Mild, Verified 06/14/19 16:23) Generalized Itching amoxicillin [Amoxicillin] Allergy (Verified 06/14/19 16:23) Generalized Itching Past Medical History - General Information source: Patient Neurological Medical History: Reports: Hx Migraine, Hx Seizures - pseudoseizures Renal/ Medical History: Reports: Hx Kidney Stones, Hx Ovarian Cysts - 06/2013. Denies: Hx Peritoneal Dialysis GI Medical History: Reports: Hx Gastroesophageal Reflux Disease, Hx Irritable Bowel - for 5 years Musculoskeltal Medical History: Reports Hx Fibromyalgia Psychiatric Medical History: Reports: Hx Anxiety, Hx Depression, Hx Post Traumatic Stress Disorder - severe panic disorder Past Surgical History: Reports: Hx Abdominal Surgery, Hx Section - x2, Hx Cholecystectomy - 2010, Hx Hysterectomy, Hx Kidney (Renal Surgery) - nephrostomy tube, Hx Tonsillectomy - 13 yo - Immunizations Immunizations up to date: Yes Hx Diphtheria, Pertussis, Tetanus Vaccination: Yes Review of Systems - Review of Systems Cardiovascular: See HPI Neurological/Psychological: See HPI Physical Exam - Vital signs Vitals: Temp Pulse Resp BP Pulse Ox 97.7 F 64 12 144/89 H 97 06/14/19 16:40 06/14/19 16:40 06/14/19 16:40 06/14/19 16:40 06/14/19 16:40 - Notes Notes: PHYSICAL EXAMINATION: GENERAL: in no acute distress. LUNGS: CTAB and equal. No wheezes rales or rhonchi. HEART: Regular rate and rhythm without murmurs Course - Vital Signs Vital signs: Temp Pulse Resp BP Pulse Ox 97.7 F 64 12 144/89 H 97 06/14/19 16:40 06/14/19 16:40 06/14/19 16:40 06/14/19 16:40 06/14/19 16:40
[2019-06-14 18:53] LABS: ABSOLUTE EOSINOPHILS # (AUTO) 0.1 10^3/uL (0.0-0.6); ABSOLUTE MONOCYTES (AUTO) 0.4 10^3/uL (0.1-1.4); ABSOLUTE NEUT (AUTO) 4.6 10^3/uL (1.7-8.2); BASOPHILS % (AUTO) 0.3 % (0-2); EOSINOPHILS % (AUTO) 1.8 % (0-6); HEMATOCRIT 43.6 % (36.0-47.0); HEMOGLOBIN 15.2 g/dL (12.0-15.5); LYMPHOCYTES % (AUTO) 36.2 % (13-45); MEAN CORPUSCULAR HEMOGLOBIN 33.6 pg (27.0-33.4); MEAN CORPUSCULAR HGB CONC 34.9 g/dL (32.0-36.0); MEAN CORPUSCULAR VOLUME 96 fl (80-97); MONOCYTES % (AUTO) 5.5 % (3-13); PLATELET COUNT 362 10^3/uL (150-450); RED BLOOD COUNT 4.53 10^6/uL (3.72-5.28); SEGMENTED NEUTROPHILS % (AUTO) 56.2 % (42-78); TOTAL CELLS COUNTED % (AUTO) 100 %; WHITE BLOOD COUNT 8.2 10^3/uL (4.0-10.5)
[2019-06-14 19:16] LABS: ALANINE AMINOTRANSFERASE 31 U/L (9-52); ALBUMIN 4.8 g/dL (3.5-5.0); ALKALINE PHOSPHATASE 71 U/L (38-126); ANION GAP 11 (5-19); ASPARTATE AMINO TRANSFERASE 17 U/L (14-36); BILIRUBIN,DIRECT 0.2 mg/dL (0.0-0.4); BILIRUBIN,TOTAL 0.3 mg/dL (0.2-1.3); BLOOD UREA NITROGEN 13 mg/dL (7-20); CALCIUM 9.8 mg/dL (8.4-10.2); CARBON DIOXIDE 27 mmol/L (22-30); CHLORIDE 102 mmol/L (98-107); GLUCOSE 85 mg/dL (75-110); POTASSIUM 4.3 mmol/L (3.6-5.0); TOTAL PROTEIN 7.7 g/dL (6.3-8.2)
--- NOTE | 2019-06-14 23:18 | EKG REPORT ---
SEVERITY:- BORDERLINE ECG - SINUS RHYTHM PROBABLE LEFT ATRIAL ABNORMALITY : Confirmed by: Tanisha Gonzalez 14-Jun-2019 23:16:57
== END 2019-06-14 21:21 | disposition left against medical advice (07) ==
LOC: ER 16:22
DX: R07.9 Chest pain, unspecified (principal); F41.9 Anxiety disorder, unspecified; Z88.0 Allergy status to penicillin; Z88.3 Allergy status to other anti-infective agents; Z87.442 Personal history of urinary calculi; Z90.49 Acquired absence of other specified parts of digestive tract; Z90.710 Acquired absence of both cervix and uterus
CPT/HCPCS: 36415; 80053; 83690; 84484; 85025; 93005; 93010; 99281

== ENCOUNTER → 2019-06-15 | Outpatient (CLI) | payer BC | LOC: OD 16:22 | PROVIDERS: ATTEND Internal Medicine Cardiovascular Disease | DX: R07.9 Chest pain, unspecified (principal); Z83.2 Family history of diseases of the blood and blood-forming organs and certain disorders involving the immune mechanism | CPT/HCPCS: 36415; 85379 ==

== ENCOUNTER 2019-10-03 09:25 | Emergency (ER) | payer OTHER, BC ==
[2019-10-03] MEDS ORDERED: ACETAMINOPHEN 325 MG TABLET PO ONE (10:14)
[2019-10-03] MEDS ORDERED: DIPH/PERTUSS(ACELL)/TETANUS VAC/PF 0.5 ML SYR (>=10YO) IM ONE (10:14)
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
[2019-10-03] MEDS ORDERED: ONDANSETRON ODT 4 MG TAB (6 TAB/ER DISP) PO PRN (11:27)
[2019-10-03] MEDS ORDERED: ONDANSETRON HCL 8 MG TABLET PO ONE (11:27)
[2019-10-03 11:41] VITALS: BP 115/89
== END 2019-10-03 11:40 | disposition home or self-care (01) ==
LOC: ER 09:25
DX: S09.90XA Unspecified injury of head, initial encounter (principal); M54.2 Cervicalgia; R51 Headache; M54.6 Pain in thoracic spine; M25.561 Pain in right knee; M25.562 Pain in left knee; M25.512 Pain in left shoulder; M54.9 Dorsalgia, unspecified; V87.7XXA Person injured in collision between other specified motor vehicles (traffic), initial encounter; Z90.710 Acquired absence of both cervix and uterus
CPT/HCPCS: 99284; 90471; 71046; 72070; 73560; 70450; 72125; 90715; S0119

== ENCOUNTER 2019-10-10 08:59 | Emergency (ER) | payer OTHER, BC ==
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
[2019-10-10 09:51] LABS: ABSOLUTE LYMPHOCYTES (AUTO) 1.3 10^3/uL (0.5-4.7); ABSOLUTE MONOCYTES (AUTO) 0.7 10^3/uL (0.1-1.4); ABSOLUTE NEUT (AUTO) 8.8 10^3/uL (1.7-8.2); BASOPHILS % (AUTO) 0.2 % (0-2); HEMATOCRIT 45.9 % (36.0-47.0); HEMOGLOBIN 16.2 g/dL (12.0-15.5); LYMPHOCYTES % (AUTO) 11.9 % (13-45); MEAN CORPUSCULAR HEMOGLOBIN 34.1 pg (27.0-33.4); MEAN CORPUSCULAR HGB CONC 35.3 g/dL (32.0-36.0); MEAN CORPUSCULAR VOLUME 97 fl (80-97); MONOCYTES % (AUTO) 6.6 % (3-13); PLATELET COUNT 364 10^3/uL (150-450); RED BLOOD COUNT 4.74 10^6/uL (3.72-5.28); RED CELL DISTRIBUTION WIDTH 13.2 % (11.5-14.0); SEGMENTED NEUTROPHILS % (AUTO) 81.3 % (42-78); TOTAL CELLS COUNTED % (AUTO) 100 %; WHITE BLOOD COUNT 10.8 10^3/uL (4.0-10.5)
[2019-10-10 09:54] LABS: APPEARANCE,URINE CLEAR; BILIRUBIN,URINE NEGATIVE (NEGATIVE); COLOR,URINE YELLOW; GLUCOSE, URINE NEGATIVE (NEGATIVE); KETONES,URINE NEGATIVE (NEGATIVE); PROTEIN,URINE NEGATIVE (NEGATIVE); URINE SPECIFIC GRAVITY 1.009; UROBILINOGEN,URINE NEGATIVE mg/dL (<2.0)
[2019-10-10 10:22] LABS: ALBUMIN 4.6 g/dL (3.5-5.0); ALKALINE PHOSPHATASE 66 U/L (38-126); ANION GAP 7 (5-19); ASPARTATE AMINO TRANSFERASE 17 U/L (14-36); BILIRUBIN,DIRECT 0.1 mg/dL (0.0-0.4); BILIRUBIN,TOTAL 0.4 mg/dL (0.2-1.3); BLOOD UREA NITROGEN 16 mg/dL (7-20); CALCIUM 9.9 mg/dL (8.4-10.2); CARBON DIOXIDE 30 mmol/L (22-30); CHLORIDE 100 mmol/L (98-107); GLUCOSE 91 mg/dL (75-110); POTASSIUM 4.4 mmol/L (3.6-5.0); TOTAL PROTEIN 7.8 g/dL (6.3-8.2)
[2019-10-10] MEDS ORDERED: LIDOCAINE 2% VISCOUS SOLN 20 ML UDCUP PO ONE (10:44)
[2019-10-10] MEDS ORDERED: MAG HYDROX/AL HYDROX/SIMETH SUSP 30 ML UDCUP PO ONE (10:44)
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
[2019-10-10 15:53] VITALS: BP 133/81
== END 2019-10-10 15:51 | disposition home or self-care (01) ==
LOC: ER 08:59
DX: R10.13 Epigastric pain (principal); K21.9 Gastro-esophageal reflux disease without esophagitis; F17.210 Nicotine dependence, cigarettes, uncomplicated; Z90.710 Acquired absence of both cervix and uterus; Z90.49 Acquired absence of other specified parts of digestive tract; Z88.0 Allergy status to penicillin; Z88.3 Allergy status to other anti-infective agents; Z87.442 Personal history of urinary calculi
CPT/HCPCS: 36415; 83690; 84703; 85025; 80053; 81001; 74177; J3490; 99284

== ENCOUNTER → 2019-10-15 | Outpatient (CLI) | payer BC ==
[2019-10-15 12:41] LABS: ANION GAP 9 (5-19); BLOOD UREA NITROGEN 17 mg/dL (7-20); CALCIUM 10.2 mg/dL (8.4-10.2); CARBON DIOXIDE 28 mmol/L (22-30); CHLORIDE 101 mmol/L (98-107); GLUCOSE 74 mg/dL (75-110); POTASSIUM 4.2 mmol/L (3.6-5.0)
[2019-10-17 13:36] LABS: COMPLEMENT C4 29 mg/dL (14-44)
[2019-10-17 14:17] LABS: COMPLEMENT C3 133 mg/dL (82-167)
== END ==
LOC: OD 11:29
PROVIDERS: ATTEND Physician Assistant
DX: T78.3XXA Angioneurotic edema, initial encounter (principal); R06.02 Shortness of breath
CPT/HCPCS: 36415; 80048; 83880; 85652; 86141; 86160; 86162

== ENCOUNTER 2019-10-16 18:31 | Emergency (ER) | payer OTHER, BC ==
[2019-10-16 18:52] VITALS: BP 138/95
[2019-10-16] MEDS ORDERED: ONDANSETRON 4 MG TAB.RAPDIS PO ONE (19:31)
[2019-10-16] MEDS ORDERED: HYDROCODONE/ACETAMINOPHEN 5-325 MG (6 TAB/ER DISP) PO PRN (19:33)
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
== END 2019-10-16 19:59 | disposition home or self-care (01) ==
LOC: ER 18:31
DX: S06.0X0A Concussion without loss of consciousness, initial encounter (principal); R11.2 Nausea with vomiting, unspecified; V89.2XXA Person injured in unspecified motor-vehicle accident, traffic, initial encounter; Z88.0 Allergy status to penicillin; Z88.3 Allergy status to other anti-infective agents; Z87.442 Personal history of urinary calculi; Z90.49 Acquired absence of other specified parts of digestive tract; Z90.710 Acquired absence of both cervix and uterus
CPT/HCPCS: 99283; S0119

== ENCOUNTER 2019-12-26 11:19 | Emergency (ER) | payer BC, OTHER ==
--- NOTE | 2019-12-26 12:09 | ER Document Report ---
ED Medical Screen (RME) - General Chief Complaint: Neck Pain >24hrs old Stated Complaint: HEAD/NECK PRESSURE Time Seen by Provider: 12/26/19 12:05 Primary Care Provider: RAND DOMINGUEZ DO [Primary Care Provider] - Follow up as needed Mode of Arrival: Ambulatory Information source: Patient Notes: 29-year-old female presents to ED for complaint of head pressure, neck pressure, back pain, clavicle pain, she is being seen by her surgeon who wrote prescriptions for outpatient CTs of neck and back. She states she was here to see if she can get those CTs done in the emergency room she is also got pain in her right clavicle. She states the pain is increased in her head neck and back. The clavicle pain is only been since yesterday. She states there is a burning pain in these areas. She states she does have some decrease in control of her bladder due to these pains. She states she has had a hysterectomy she states she did have nerve root testing done about a week and a half ago. Seen by Dr Encarnacion I have greeted and performed a rapid initial assessment of this patient. A comprehensive ED assessment and evaluation of the patient, analysis of test results and completion of medical decision making process will be conducted by an additional ED providers. TRAVEL OUTSIDE OF THE [place] IN LAST 30 DAYS: No - Related Data Allergies/Adverse Reactions: nitrofurantoin [From Macrobid] Allergy (Mild, Verified 12/26/19 12:00) Generalized Itching nitrofurantoin macrocrystalline [From Macrobid] Allergy (Mild, Verified 12/26/19 12:00) Generalized Itching Penicillins Allergy (Mild, Verified 12/26/19 12:00) Generalized Itching promethazine HCl [From Phenergan] Allergy (Mild, Verified 12/26/19 12:00) Generalized Itching amoxicillin [Amoxicillin] Allergy (Verified 12/26/19 12:00) Generalized Itching Past Medical History Neurological Medical History: Reports: Hx Migraine, Hx Seizures - pseudoseizures Renal/ Medical History: Reports: Hx Kidney Stones, Hx Ovarian Cysts - 06/2013. Denies: Hx Peritoneal Dialysis GI Medical History: Reports: Hx Gastroesophageal Reflux Disease, Hx Irritable Bowel Musculoskeltal Medical History: Reports Hx Fibromyalgia Psychiatric Medical History: Reports: Hx Anxiety, Hx Depression, Hx Post Traumatic Stress Disorder - severe panic disorder Past Surgical History: Reports: Hx Abdominal Surgery, Hx Section - x2, Hx Cholecystectomy - 2011, Hx Hysterectomy, Hx Kidney (Renal Surgery) - nephrostomy tube, Hx Tonsillectomy - 13 yo - Immunizations Immunizations up to date: Yes Hx Diphtheria, Pertussis, Tetanus Vaccination: Yes Physical Exam - Vital signs Vitals: Temp Pulse Resp BP Pulse Ox 98.2 F 83 18 144/76 H 99 12/26/19 11:38 12/26/19 11:38 12/26/19 11:38 12/26/19 11:38 12/26/19 11:38 Course - Vital Signs Vital signs: Temp Pulse Resp BP Pulse Ox 98.2 F 83 18 144/76 H 99 12/26/19 11:38 12/26/19 11:38 12/26/19 11:38 12/26/19 11:38 12/26/19 11:38 Doctor's Discharge - Discharge Referrals: RAND DOMINGUEZ DO [Primary Care Provider] - Follow up as needed
[2019-12-26] MEDS ORDERED: KETOROLAC TROMETHAMINE 60 MG/2 ML SDV IM ONE (13:40)
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
--- NOTE | 2019-12-26 17:13 | RADIOLOGY REPORT (SQ) ---
EXAM DESCRIPTION: MRI LUMBAR SPINE WITHOUT COMPLETED DATE/TIME: 12/26/2019 4:22 pm REASON FOR STUDY: severe low back pain/incontinence COMPARISON: CT 10/10/2019 TECHNIQUE: Sagittal and Axial imaging includes T1, T2, STIR and gradient echo sequences. Coronal T2/ HASTE imaging. LIMITATIONS: None. FINDINGS: VISUALIZED UPPER ABDOMEN: Limited evaluation. No acute or suspicious findings suggested. 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 For reference the ilial lumbar ligaments will be utilized to delineate L5. The final develo ped disc space will be labeled L5-S1. ALIGNMENT: Straightening of the normal lumbar lordosis. VERTEBRAE: Intact. BONE MARROW: No marrow replacement. There is a Schmorl's node along the superior endplate of L4 with associated bony edema. This is increased in conspicuity compared to CT dated 10/10/2019 DISC SIGNAL: And ligamentum flavum hypertrophy. POSTERIOR ELEMENTS: Generally intact. No pars defect evident. HARDWARE: None in the spine. CORD AND CONUS: Normal in size and signal intensity. Conus medullaris terminates at L2. SOFT TISSUES: No aortic aneurysm seen. No bulky retroperitoneal adenopathy or mass. No paraspinal mas s or fluid. L1-L2: No significant spinal stenosis or exit foraminal stenosis. L2-L3: No significant spinal stenosis or exit foraminal stenosis. L3-L4: There is a superior L4 Schmorl's node with associated bony edema. Mild disc desiccation and c ircumferential posterior disc bulge with mild canal stenosis. There is mild bilateral neural foramin al narrowing secondary to disc disease. L4-L5: Disc desiccation with circumferential posterior disc bulge there is resultant moderate lateral recess and canal stenosis with contact of the traversing nerve roots. There is moderate bilateral ne ural foraminal narrowing secondary to disc and ligamentum flavum hypertrophy. L5-S1: No significant spinal stenosis or exit foraminal stenosis. LOWER THORACIC: Incompletely imaged. No stenosis seen. SACRUM: Visualized upper sacrum intact. OTHER: No other significant findings. IMPRESSION: 1. Transitional lumbosacral anatomy. 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 For reference the ilial lumbar ligaments will be utilized to de lineate L5. The final developed disc space will be labeled L5-S1. 2. Superior L4 Schmorl's node with associated bony edema. 3. Disc bulge at L3-4 and L4-5. L4-5 demonstrates moderate lateral recess and canal stenosis with c ontact of the traversing roots. There is moderate bilateral neural foraminal narrowing at that level . 4. Additional level specific findings as above. TECHNICAL DOCUMENTATION: JOB ID: [id number] [employer]- All Rights Reserved Reading location - IP/workstation name: [email or web address]
[2019-12-26 20:26] VITALS: BP 118/79
== END 2019-12-26 19:50 | disposition home or self-care (01) ==
LOC: ER 11:19
DX: M51.26 Other intervertebral disc displacement, lumbar region (principal); M54.2 Cervicalgia; V49.9XXA Car occupant (driver) (passenger) injured in unspecified traffic accident, initial encounter; R51 Headache; R11.0 Nausea; R32 Unspecified urinary incontinence; Z88.8 Allergy status to other drugs, medicaments and biological substances; Z88.1 Allergy status to other antibiotic agents; Z88.0 Allergy status to penicillin; F17.200 Nicotine dependence, unspecified, uncomplicated
CPT/HCPCS: 99283; 96372; 72148; 72125; J1885

== ENCOUNTER 2020-03-01 08:43 | Emergency (ER) | payer BC, MEDICAID ==
--- NOTE | 2020-03-01 09:28 | ER Document Report ---
HPI - HPI Notes: The patient was evaluated during the global Covid 19 pandemic and that diagnosis was suspected/considered upon their initial presentation. Their evaluation, treatment and testing was consistent with current guidelines for patients who present with complaints or symptoms that may be related to Covid 19. Pulse oximetry 96% on room air not hypoxic. Heart rate 90. Blood pressure 102/60. Temperature 98.0 degrees. Respiratory rate 18. 29-year-old female with a history of lupus who is not on immune modulators at this time presenting for 4 days of upper respiratory symptoms. Reports coughing with some wheezing at night, some tightness in the chest. No active chest pain at this time. Patient states she had an inhaler at home but it was so she does not know if it is working. Patient also reports some intermittent upper abdominal cramping none currently. 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 She does complain of myalgia Full physical exam could not be performed due to Covid 19 isolation protocols. Constitutional: Nontoxic appearance, no acute distress Eyes: Nonicteric, extraocular movements intact, sclera clear Cardiovascular: No JVD, regular rate and rhythm Respiratory: Nonlabored breathing, no use of accessory muscles, no tachypnea, lung sounds are clear to auscultation Gastrointestinal: Abdomen not distended Musculoskeletal: Moves all extremities well, normal gait Skin: Normal color Neuro: Awake alert oriented x3, normal speech Psych: Normal mood and affect Patient presents with upper respiratory symptoms worrisome for possible Covid 19. Patient does not have emergency worrying symptoms such as difficulty breathing, shortness of breath, chest pain that is active at this time, confusion or cyanosis. Patient appears suitable for discharge. Patient does have chronic medical conditions that are uncontrolled such as immune deficiency as well as chronic kidney issues. She does not have history of diabetes. Patient's vital signs are stable and patient is nontoxic in appearance. Good return precautions have been discussed with the patient and/or family members. Patient verbalized understanding and is agreeable with discharge plan of care at this time. Patient was advised to quarantine for 14 days or until her Covid 19 test has resulted - REPRODUCTIVE Reproductive: DENIES: : Past Medical History - Social History Smoking Status: Current Every Day Smoker Family History: Reviewed & Not Pertinent Neurological Medical History: Reports: Hx Migraine, Hx Seizures - pseudoseizures Renal/ Medical History: Reports: Hx Kidney Stones, Hx Ovarian Cysts - 06/2013. Denies: Hx Peritoneal Dialysis GI Medical History: Reports: Hx Gastroesophageal Reflux Disease, Hx Irritable Bowel Musculoskeletal Medical History: Reports Hx Fibromyalgia Psychiatric Medical History: Reports: Hx Anxiety, Hx Depression, Hx Post Traumatic Stress Disorder - severe panic disorder Past Surgical History: Reports: Hx Abdominal Surgery, Hx Section - x2, Hx Cholecystectomy - 2010, Hx Hysterectomy, Hx Kidney (Renal Surgery) - nephrostomy tube, Hx Tonsillectomy - 13 yo - Immunizations Immunizations up to date: Yes Hx Diphtheria, Pertussis, Tetanus Vaccination: Yes Hx Pneumococcal Vaccination: 11/23/09 Vertical Provider Document - INFECTION CONTROL TRAVEL OUTSIDE OF THE [place]. IN LAST 30 DAYS: No Discharge - Discharge Clinical Impression: Cough, Upper respiratory infection, viral, Covid 19 evaluation Condition: Stable Disposition: HOME, SELF-CARE Additional Instructions: Patient was provided with discharge information including: As a person under investigation for Covid 19, the [place] Department of Health and Human Services, division of public health advises you to adhere to the following guidance until your test results are reported to you. If your test result is positive, you will receive additional information from your provider in your local health department at that time. Remain at home until you are cleared by the health provider or public health authorities. Keep a log of visitors to your home, notify any visitors to your home with your isolation status. If you plan to move to a new address or leave the [facility], notify the local health department in your [facility]. Call your doctor or seek care if you have an urgent medical need. Before seeking medical care, call ahead to get instructions from the provider before arriving at the medical office clinic or hospital. Notify them that you are being tested for the virus that causes Covid 19 so that arrangements can be made as necessary to prevent transmission to others in the healthcare setting. Next, notify the local health department and your County. If you medical emergency arises and you need to call 911, inform the first responders that you are being tested for the virus that causes Covid 19. Next, notify the local health department and your County Use the albuterol inhaler 2 puffs every 4 hours as needed for shortness of breath or wheezing. If you have worsening symptoms of shortness of breath, dizziness or abdominal pain that is persistent proceed to the emergency department for evaluation Prescriptions: Albuterol Sulfate [Proair HFA Inhalation Aerosol 8.5 gm MDI] 2 puff IH Q4H PRN #1 mdi PRN Reason: Forms: Return to Work Referrals: RAND DOMINGUEZ DO [Primary Care Provider] - Follow up as needed
[2020-03-01 10:15] LABS: A TYPE INFLUENZA AG NEGATIVE (NEGATIVE); B INFLUENZA AG NEGATIVE (NEGATIVE)
== END 2020-03-01 11:46 | disposition home or self-care (01) ==
LOC: EDRDC 08:43
DX: J06.9 Acute upper respiratory infection, unspecified (principal); R05 Cough; R06.2 Wheezing; R07.9 Chest pain, unspecified; R10.10 Upper abdominal pain, unspecified; R06.02 Shortness of breath; R41.0 Disorientation, unspecified; Z20.828 Contact with and (suspected) exposure to other viral communicable diseases
CPT/HCPCS: 87070; 87635; 87804; 87880; 99211

== ENCOUNTER → 2020-04-20 | Outpatient (CLI) | payer BC, MEDICAID ==
[2020-04-20 08:29] LABS: ABSOLUTE EOSINOPHILS # (AUTO) 0.2 10^3/uL (0.0-0.6); ABSOLUTE LYMPHOCYTES (AUTO) 3.3 10^3/uL (0.5-4.7); ABSOLUTE MONOCYTES (AUTO) 0.5 10^3/uL (0.1-1.4); ABSOLUTE NEUT (AUTO) 3.8 10^3/uL (1.7-8.2); BASOPHILS % (AUTO) 0.5 % (0-2); EOSINOPHILS % (AUTO) 2.6 % (0-6); HEMATOCRIT 42.8 % (36.0-47.0); HEMOGLOBIN 15.1 g/dL (12.0-15.5); LYMPHOCYTES % (AUTO) 41.4 % (13-45); MEAN CORPUSCULAR HEMOGLOBIN 34.4 pg (27.0-33.4); MEAN CORPUSCULAR HGB CONC 35.2 g/dL (32.0-36.0); MEAN CORPUSCULAR VOLUME 98 fl (80-97); MONOCYTES % (AUTO) 6.6 % (3-13); PLATELET COUNT 325 10^3/uL (150-450); RED BLOOD COUNT 4.38 10^6/uL (3.72-5.28); SEGMENTED NEUTROPHILS % (AUTO) 48.9 % (42-78); TOTAL CELLS COUNTED % (AUTO) 100 %; WHITE BLOOD COUNT 7.9 10^3/uL (4.0-10.5)
[2020-04-20 08:50] LABS: ALBUMIN 4.5 g/dL (3.5-5.0); ALKALINE PHOSPHATASE 63 U/L (38-126); ANION GAP 8 (5-19); ASPARTATE AMINO TRANSFERASE 20 U/L (14-36); BILIRUBIN,TOTAL 0.5 mg/dL (0.2-1.3); BLOOD UREA NITROGEN 17 mg/dL (7-20); CALCIUM 9.5 mg/dL (8.4-10.2); CARBON DIOXIDE 23 mmol/L (22-30); CHLORIDE 107 mmol/L (98-107); CHOLESTEROL 162.12 mg/dL (0-200); GLUCOSE 86 mg/dL (75-110); POTASSIUM 4.5 mmol/L (3.6-5.0); TOTAL PROTEIN 7.1 g/dL (6.3-8.2); TRIGLYCERIDES 65 mg/dL (<150)
[2020-04-20 09:01] LABS: DIRECT LDL 102 mg/dL (<100)
== END ==
LOC: OD 07:11
PROVIDERS: ATTEND Nurse Practitioner Family
DX: L29.9 Pruritus, unspecified (principal); R10.9 Unspecified abdominal pain; R25.2 Cramp and spasm; Z68.28 Body mass index [BMI] 28.0-28.9, adult
CPT/HCPCS: 36415; 80053; 80061; 83735; 84443; 85025

== ENCOUNTER 2020-07-31 12:55 | Emergency (ER) | payer BC, MEDICAID ==
--- NOTE | 2020-07-31 13:10 | ER Document Report ---
ED Medical Screen (RME) - General Chief Complaint: Pain All Over Stated Complaint: CHEST PAIN,HEADACHE Time Seen by Provider: 07/31/20 13:03 Primary Care Provider: EMILIA KENDRICK FNP [Primary Care Provider] - Follow up as needed Mode of Arrival: Ambulatory Information source: Patient Notes: 30-year-old female presents to ED for complaint of pain all over kidney pain abdominal pain back pain shortness of breath chest pain. She states her last bowel movement was yesterday and it was hard. She states she was on Adderall and was having a hard time with 5 mg Adderall and then they put her on Concerta a week ago 18 mg. She states her pain all over has gotten much worse. She states she was not able to have a bowel movement until yesterday.she states she does have a past history of lupus ADHD anxiety has had her gallbladder removed and a hysterectomy. She states she smokes 1/2 pack a day and drinks once a month. She is alert oriented respirations regular nonlabored very quiet and depressed acting. I have greeted and performed a rapid initial assessment of this patient. A comprehensive ED assessment and evaluation of the patient, analysis of test results and completion of medical decision making process will be conducted by an additional ED providers. TRAVEL OUTSIDE OF THE [place].S[place] IN LAST 30 DAYS: No - Related Data Allergies/Adverse Reactions: nitrofurantoin [From Macrobid] Allergy (Mild, Verified 12/26/19 12:00) Generalized Itching nitrofurantoin macrocrystalline [From Macrobid] Allergy (Mild, Verified 12/26/19 12:00) Generalized Itching Penicillins Allergy (Mild, Verified 12/26/19 12:00) Generalized Itching promethazine HCl [From Phenergan] Allergy (Mild, Verified 12/26/19 12:00) Generalized Itching amoxicillin [Amoxicillin] Allergy (Verified 12/26/19 12:00) Generalized Itching Past Medical History Neurological Medical History: Reports: Hx Migraine, Hx Seizures - pseudoseizures Renal/ Medical History: Reports: Hx Kidney Stones, Hx Ovarian Cysts - 06/2013. Denies: Hx Peritoneal Dialysis GI Medical History: Reports: Hx Gastroesophageal Reflux Disease, Hx Irritable Bowel Musculoskeltal Medical History: Reports Hx Fibromyalgia Psychiatric Medical History: Reports: Hx Anxiety, Hx Depression, Hx Post Traumatic Stress Disorder - severe panic disorder Past Surgical History: Reports: Hx Abdominal Surgery, Hx Section - x2, Hx Cholecystectomy - 2011, Hx Hysterectomy, Hx Kidney (Renal Surgery) - nephrostomy tube, Hx Tonsillectomy - 13 yo - Immunizations Immunizations up to date: Yes Hx Diphtheria, Pertussis, Tetanus Vaccination: Yes Doctor's Discharge - Discharge Referrals: EMILIA KENDRICK FNP [Primary Care Provider] - Follow up as needed
[2020-07-31 13:46] LABS: ABSOLUTE EOSINOPHILS # (AUTO) 0.1 10^3/uL (0.0-0.6); ABSOLUTE LYMPHOCYTES (AUTO) 2.5 10^3/uL (0.5-4.7); ABSOLUTE MONOCYTES (AUTO) 0.5 10^3/uL (0.1-1.4); ABSOLUTE NEUT (AUTO) 4.8 10^3/uL (1.7-8.2); BASOPHILS % (AUTO) 0.3 % (0-2); EOSINOPHILS % (AUTO) 0.8 % (0-6); HEMATOCRIT 43.4 % (36.0-47.0); HEMOGLOBIN 15.5 g/dL (12.0-15.5); LYMPHOCYTES % (AUTO) 32.1 % (13-45); MEAN CORPUSCULAR HEMOGLOBIN 34.4 pg (27.0-33.4); MEAN CORPUSCULAR HGB CONC 35.6 g/dL (32.0-36.0); MEAN CORPUSCULAR VOLUME 97 fl (80-97); PLATELET COUNT 313 10^3/uL (150-450); RED BLOOD COUNT 4.49 10^6/uL (3.72-5.28); RED CELL DISTRIBUTION WIDTH 12.8 % (11.5-14.0); SEGMENTED NEUTROPHILS % (AUTO) 60.8 % (42-78); TOTAL CELLS COUNTED % (AUTO) 100 %; WHITE BLOOD COUNT 7.8 10^3/uL (4.0-10.5)
[2020-07-31 14:13] LABS: ALBUMIN 4.7 g/dL (3.5-5.0); ALKALINE PHOSPHATASE 75 U/L (38-126); ANION GAP 9 (5-19); ASPARTATE AMINO TRANSFERASE 20 U/L (14-36); BILIRUBIN,DIRECT 0.2 mg/dL (0.0-0.4); BILIRUBIN,TOTAL 0.4 mg/dL (0.2-1.3); BLOOD UREA NITROGEN 13 mg/dL (7-20); CALCIUM 9.6 mg/dL (8.4-10.2); CARBON DIOXIDE 24 mmol/L (22-30); CHLORIDE 107 mmol/L (98-107); CREATINE KINASE 58 U/L (30-135); GLUCOSE 118 mg/dL (75-110); POTASSIUM 3.8 mmol/L (3.6-5.0); TOTAL PROTEIN 7.1 g/dL (6.3-8.2)
[2020-07-31 14:14] LABS: APPEARANCE,URINE CLEAR; BILIRUBIN,URINE NEGATIVE (NEGATIVE); COLOR,URINE YELLOW; GLUCOSE, URINE NEGATIVE (NEGATIVE); KETONES,URINE NEGATIVE (NEGATIVE); LEUKOCYTE ESTERASE,URINE NEGATIVE (NEGATIVE); NITRITE,URINE NEGATIVE (NEGATIVE); PROTEIN,URINE NEGATIVE (NEGATIVE); URINE SPECIFIC GRAVITY 1.006; UROBILINOGEN,URINE NEGATIVE mg/dL (<2.0)
[2020-07-31 14:26] LABS: URINE AMPHETAMINES SCREEN NEGATIVE; URINE BARBITURATES SCREEN NEGATIVE; URINE BENZODIAZEPINES SCREEN NEGATIVE; URINE COCAINE SCREEN NEGATIVE; URINE MARIJUANA (THC) SCREEN NEGATIVE; URINE METHADONE SCREEN NEGATIVE; URINE PHENCYCLIDINE SCREEN NEGATIVE
--- NOTE | 2020-07-31 15:13 | ER Document Report ---
ED Medical Screen (RME) - General Chief Complaint: Pain All Over Stated Complaint: CHEST PAIN,HEADACHE Time Seen by Provider: 07/31/20 13:03 Primary Care Provider: EMILIA KENDRICK FNP [NO LOCAL MD] - Follow up as needed Mode of Arrival: Ambulatory Information source: Patient Notes: 07/31/20 13:10 - ED Nursing Note by KAJAL MASON Num: [id number] : 1990 Patient Age: 30 patient complains of multiple complaints, states she has chest pain, abdominal pain, kidney pain, shortness of breath, nausea, decreased urination and decreased bowel movements. patient states she feels like shes not able to control her body temps, states recent fevers are unknown. patient afebrile in triage. patient states about 1 week ago she switched from adderall to concerta. patient states 1 day after starting the concerta she developed confusion and abdominal pain. patient states she has a hx of lupus ED Medical Screen (Elias martin) - General Chief Complaint: Pain All Over Stated Complaint: CHEST PAIN,HEADACHE Time Seen by Provider: 07/31/20 13:03 Primary Care Provider: EMILIA KENDRICK FNP [Primary Care Provider] - Follow up as needed Mode of Arrival: Ambulatory Information source: Patient Notes: 30-year-old female presents to ED for complaint of pain all over kidney pain abdominal pain back pain shortness of breath chest pain. She states her last bowel movement was yesterday and it was hard. She states she was on Adderall and was having a hard time with 5 mg Adderall and then they put her on Concerta a week ago 18 mg. She states her pain all over has gotten much worse. She states she was not able to have a bowel movement until yesterday.she states she does have a past history of lupus ADHD anxiety has had her gallbladder removed and a hysterectomy. She states she smokes 1/2 pack a day and drinks once a month. She is alert oriented respirations regular nonlabored very quiet and depressed acting. My Notes 30-year-old female with multiple tattoos over her body complaining of myalgias diffuse abdominal pain left flank greater than right nausea constipation headache temperature problems with fevers. Patient reports she has a history of lupus and kidney and liver failure and 2012 had to be hospitalized with a PICC line and medications to help with organ failure. She was switched from her Adderall to Concerta 1 week ago. All of the above symptoms can be explained by Concerta but patient is concerned it may be her kidney stone. Her urinalysis is completely normal as also the blood test she had done. TRAVEL OUTSIDE OF THE [place] IN LAST 30 DAYS: No - HPI Onset: Last week Onset/Duration: Sudden, Persistent, Worse Quality of pain: Achy Severity: Moderate Pain Level: 3 Associated Symptoms: Abdominal pain, Body/muscle aches, Headache, Weakness Exacerbated by: Movement Relieved by: Denies Similar symptoms previously: Yes Recently seen / treated by doctor: No - Related Data Allergies/Adverse Reactions: nitrofurantoin [From Macrobid] Allergy (Mild, Verified 12/26/19 12:00) Generalized Itching nitrofurantoin macrocrystalline [From Macrobid] Allergy (Mild, Verified 12/26/19 12:00) Generalized Itching Penicillins Allergy (Mild, Verified 12/26/19 12:00) Generalized Itching promethazine HCl [From Phenergan] Allergy (Mild, Verified 12/26/19 12:00) Generalized Itching amoxicillin [Amoxicillin] Allergy (Verified 12/26/19 12:00) Generalized Itching Home Medications: concerta, pristique, topamax, clonidine, klonopin, Past Medical History - General Information source: Patient - Social History Cigarette use (# per day): No Chew tobacco use (# tins/day): No Frequency of alcohol use: None Drug Abuse: None Lives with: Family Family history: Reviewed & Not Pertinent Neurological Medical History: Reports: Hx Migraine, Hx Seizures - pseudoseizures Renal/ Medical History: Reports: Hx Kidney Stones, Hx Ovarian Cysts - 06/2013. Denies: Hx Peritoneal Dialysis GI Medical History: Reports: Hx Gastroesophageal Reflux Disease, Hx Irritable Bowel Musculoskeltal Medical History: Reports Hx Fibromyalgia Psychiatric Medical History: Reports: Hx Anxiety, Hx Depression, Hx Post Traumatic Stress Disorder - severe panic disorder Past Surgical History: Reports: Hx Abdominal Surgery, Hx Section - x2, Hx Cholecystectomy - 2011, Hx Hysterectomy, Hx Kidney (Renal Surgery) - nephrostomy tube, Hx Tonsillectomy - 13 yo - Immunizations Immunizations up to date: Yes Hx Diphtheria, Pertussis, Tetanus Vaccination: Yes Review of Systems - Review of Systems Constitutional: See HPI, Fever, Weakness, Weight loss - 7 lbs over 1 week, Recent illness EENT: No symptoms reported Cardiovascular: See HPI, Dizziness, Lightheaded Respiratory: No symptoms reported Gastrointestinal: See HPI, Abdominal pain, Nausea, Constipation Genitourinary: No symptoms reported Female Genitourinary: No symptoms reported Musculoskeletal: See HPI, Back pain, Muscle pain, Muscle stiffness Skin: No symptoms reported Hematologic/Lymphatic: No symptoms reported Neurological/Psychological: See HPI, Weakness, Headaches Physical Exam - Vital signs Vitals: Temp Pulse Resp BP Pulse Ox 98.4 F 118 H 20 137/78 H 100 07/31/20 13:04 07/31/20 13:04 07/31/20 13:04 07/31/20 13:04 07/31/20 13:04 Course - Vital Signs Vital signs: Temp Pulse Resp BP Pulse Ox 98.4 F 118 H 22 H 135/88 H 100 07/31/20 13:04 07/31/20 13:04 07/31/20 16:01 07/31/20 16:00 07/31/20 16:01 - Laboratory Result Diagrams: 07/31/20 13:28 07/31/20 13:28 Laboratory results interpreted by me: 07/31/20 07/31/20 13:28 13:28 MCH 34.4 H Glucose 118 H Doctor's Discharge - Discharge Clinical Impression: Medication side effects Abdominal pain Qualifiers: Abdominal location: unspecified location Qualified Code(s): R10.9 - Unspecified abdominal pain Condition: Good Disposition: HOME, SELF-CARE Additional Instructions: Follow-up with personal doctor return to ER as needed avoid taking Concerta absolutely in the future. Take Xanax as needed for myalgias and side effects from methylphenidate. Encourage fluids Prescriptions: Alprazolam [Xanax 0.5 mg Tablet] 0.5 mg PO QHS #5 tab Referrals: EMILIA KENDRICK FNP [NO LOCAL MD] - Follow up as needed
--- NOTE | 2020-07-31 15:14 | ER Document Report ---
ED Medical Screen (RME) - General Chief Complaint: Pain All Over Stated Complaint: CHEST PAIN,HEADACHE Time Seen by Provider: 07/31/20 13:03 Primary Care Provider: EMILIA KENDRICK FNP [NO LOCAL MD] - Follow up as needed Mode of Arrival: Ambulatory TRAVEL OUTSIDE OF THE [place] IN LAST 30 DAYS: No - Related Data Allergies/Adverse Reactions: nitrofurantoin [From Macrobid] Allergy (Mild, Verified 12/26/19 12:00) Generalized Itching nitrofurantoin macrocrystalline [From Macrobid] Allergy (Mild, Verified 12/26/19 12:00) Generalized Itching Penicillins Allergy (Mild, Verified 12/26/19 12:00) Generalized Itching promethazine HCl [From Phenergan] Allergy (Mild, Verified 12/26/19 12:00) Generalized Itching amoxicillin [Amoxicillin] Allergy (Verified 12/26/19 12:00) Generalized Itching Home Medications: concerta, pristique, topamax, clonidine, klonopin, Past Medical History - Social History Chew tobacco use (# tins/day): No Frequency of alcohol use: None Drug Abuse: None Neurological Medical History: Reports: Hx Migraine, Hx Seizures - pseudoseizures Renal/ Medical History: Reports: Hx Kidney Stones, Hx Ovarian Cysts - 06/2013. Denies: Hx Peritoneal Dialysis GI Medical History: Reports: Hx Gastroesophageal Reflux Disease, Hx Irritable Bowel Musculoskeltal Medical History: Reports Hx Fibromyalgia Psychiatric Medical History: Reports: Hx Anxiety, Hx Depression, Hx Post Traumatic Stress Disorder - severe panic disorder Past Surgical History: Reports: Hx Abdominal Surgery, Hx Section - x2, Hx Cholecystectomy - 2010, Hx Hysterectomy, Hx Kidney (Renal Surgery) - nephrostomy tube, Hx Tonsillectomy - 13 yo - Immunizations Immunizations up to date: Yes Hx Diphtheria, Pertussis, Tetanus Vaccination: Yes Physical Exam - Vital signs Vitals: Temp Pulse Resp BP Pulse Ox 98.4 F 118 H 20 137/78 H 100 07/31/20 13:04 07/31/20 13:04 07/31/20 13:04 07/31/20 13:04 07/31/20 13:04 Course - Vital Signs Vital signs: Temp Pulse Resp BP Pulse Ox 98.4 F 118 H 21 H 125/78 97 07/31/20 13:04 07/31/20 13:04 07/31/20 14:01 07/31/20 14:00 07/31/20 14:16 - Laboratory Result Diagrams: 07/31/20 13:28 07/31/20 13:28 Laboratory results interpreted by me: 07/31/20 07/31/20 13:28 13:28 MCH 34.4 H Glucose 118 H Doctor's Discharge - Discharge Referrals: EMILIA KENDRICK FNP [NO LOCAL MD] - Follow up as needed
[2020-07-31] MEDS ORDERED: HYDROMORPHONE HCL INJ/PF 2 MG/ML AMPULE IV ONE (16:04)
[2020-07-31] MEDS ORDERED: ONDANSETRON HCL INJ/PF 4 MG/2 ML SDV IV ONE (16:05)
[2020-07-31] MEDS ORDERED: NORMAL SALINE 1000 ML 1,000 ML IV ONE (16:09)
--- NOTE | 2020-07-31 17:02 | RADIOLOGY REPORT (SQ) ---
EXAM DESCRIPTION: CT ABD/PELVIS NO ORAL OR IV IMAGES COMPLETED DATE/TIME: 07/31/2020 4:37 pm REASON FOR STUDY: abd pain COMPARISON: None. TECHNIQUE: CT scan of the abdomen and pelvis performed without intravenous or oral contrast. Images reviewed with lung, soft tissue, and bone windows. Reconstructed coronal and sagittal MPR images revi ewed. All images stored on PACS. All CT scanners at this facility use dose modulation, iterative reconstruction, and/or weight based d osing when appropriate to reduce radiation dose to as low as reasonably achievable (ALARA). [facility]: Dose Right [facility]: CareDose [facility]: Dose Right [facility]: Teradose 4D [facility]: Smart [employer] RADIATION DOSE: CT Rad equipment meets quality standard of care and radiation dose reduction techniq ues were employed. CTDIvol: 5.9 mGy. DLP: 312 mGy-cm.mGy. LIMITATIONS: None. FINDINGS: LOWER CHEST: No significant findings. No nodules or infiltrates. NON-CONTRASTED LIVER, SPLEEN, ADRENALS: Evaluation limited by lack of IV contrast. No identified sign ificant masses. PANCREAS: No masses. No peripancreatic inflammatory changes. GALLBLADDER: Surgically absent. RIGHT KIDNEY AND URETER: No suspicious masses. Assessment limited by lack of IV contrast. No signif icant calcifications. No hydronephrosis or hydroureter. LEFT KIDNEY AND URETER: No suspicious masses. Assessment limited by lack of IV contrast. No signifi cant calcifications. No hydronephrosis or hydroureter. AORTA AND RETROPERITONEUM: No aneurysm. No retroperitoneal masses or adenopathy. BOWEL AND PERITONEAL CAVITY: No obvious masses or inflammatory changes. No free fluid. APPENDIX: Surgically absent. PELVIS, BLADDER, AND ABDOMINAL WALL:No abnormal masses. No free fluid. Bladder normal. BONES: No significant findings. OTHER: No other significant finding. IMPRESSION: NO SIGNIFICANT OR ACUTE PROCESS IN THE ABDOMEN OR PELVIS. COMMENT: Quality ID # [id number]: Final reports with documentation of one or more dose reduction techniques (e.g., Automated exposure control, adjustment of the mA and/or kV according to patient size, use of iterative reconstruction technique) TECHNICAL DOCUMENTATION: JOB ID: [id number] 2010 [employer]- All Rights Reserved Reading location - IP/workstation name: [email or web address]
[2020-07-31] MEDS ORDERED: FENTANYL CITRATE INJ/PF 100 MCG/2 ML AMPUL IV ONE (17:11)
[2020-07-31] MEDS ORDERED: DIPHENHYDRAMINE HCL 50 MG/ML VIAL IV ONE (17:11)
[2020-07-31] MEDS ORDERED: KETOROLAC TROMETHAMINE INJ/PF 30 MG/1 ML SDV IV ONE (17:12)
[2020-07-31 18:35] VITALS: BP 147/86
--- NOTE | 2020-08-01 09:39 | EKG REPORT ---
SEVERITY:- ABNORMAL ECG - SINUS TACHYCARDIA INFERIOR Q WAVES, PROBABLY NORMAL VARIATION NONSPECIFIC T ABNORMALITIES, INFERIOR LEADS : Confirmed by: Oral Reyna MD 01-Aug-2020 09:38:18
== END 2020-07-31 18:35 | disposition home or self-care (01) ==
LOC: ER 12:55
DX: N23 Unspecified renal colic (principal); T50.905A Adverse effect of unspecified drugs, medicaments and biological substances, initial encounter; R07.9 Chest pain, unspecified; K59.00 Constipation, unspecified; R06.02 Shortness of breath; R11.0 Nausea; M79.10 Myalgia, unspecified site; R50.9 Fever, unspecified; R42 Dizziness and giddiness; R63.4 Abnormal weight loss; M54.9 Dorsalgia, unspecified; R53.1 Weakness; G43.909 Migraine, unspecified, not intractable, without status migrainosus; F90.9 Attention-deficit hyperactivity disorder, unspecified type; F41.9 Anxiety disorder, unspecified; F17.200 Nicotine dependence, unspecified, uncomplicated; F32.9 Major depressive disorder, single episode, unspecified; Z79.899 Other long term (current) drug therapy; Z87.19 Personal history of other diseases of the digestive system; Z90.49 Acquired absence of other specified parts of digestive tract; Z90.710 Acquired absence of both cervix and uterus; Z88.1 Allergy status to other antibiotic agents; Z88.0 Allergy status to penicillin; Z88.8 Allergy status to other drugs, medicaments and biological substances; Z20.828 Contact with and (suspected) exposure to other viral communicable diseases
CPT/HCPCS: 93005; 99285; 96361; 96374; 96375; 36415; 87070; 87880; 82550; 83690; 83735; 84443; 84703; 85025; 80053; 81001; 80307; 74176; 93010; U0003; J1200; J3010; J1885; J1170; J2405; J7030; C9803; 87635

== ENCOUNTER 2020-11-06 11:13 | Emergency (ER) | payer BC, MEDICAID ==
--- NOTE | 2020-11-06 11:45 | ER Document Report ---
ED Medical Screen (RME) - General Chief Complaint: Shortness Of Breath Stated Complaint: SHORTNESS OF BREATH Time Seen by Provider: 11/06/20 11:35 Primary Care Provider: RAND DUBOSE DO [Primary Care Provider] - Follow up as needed TRAVEL OUTSIDE OF THE [place] IN LAST 30 DAYS: No - HPI Notes: 11/06/20 11:43 30-year-old female with a history of seasonal asthma, lupus, PTSD, asthma, depression presents to the emergency room for complaints of shortness of breath, intermittent chest pain that has been getting worse progressively over the last month, she was seen by her primary care and they did put her on 2 weeks of steroids without any relief. Denies any radiation of chest pain. Denies any numbness or tingling that is new with her chest pain. Patient reports today she lost her ability to smell. Denies any positive Covid or being exposed anybody with Covid. Reports partial hysterectomy in late . Primary is Dr. Dubose. Patient states that "my head feels big and I feel little disorientated". Has not done any breathing treatments today. Patient endorses smoking. I have greeted and performed a rapid initial assessment of this patient. A comprehensive ED assessment and evaluation of the patient, analysis of test results and completion of the medical decision making process will be conducted by additional ED providers. PHYSICAL EXAMINATION: GENERAL: Well-appearing, well-nourished and in no acute distress. HEAD: Atraumatic, normocephalic. NECK: Normal range of motion CV: s1, s2 regular LUNGS: No respiratory distress 11/06/20 11:45 - Related Data Allergies/Adverse Reactions: nitrofurantoin [From Macrobid] Allergy (Mild, Verified 11/06/20 11:35) Generalized Itching nitrofurantoin macrocrystalline [From Macrobid] Allergy (Mild, Verified 11/06/20 11:35) Generalized Itching Penicillins Allergy (Mild, Verified 11/06/20 11:35) Generalized Itching promethazine HCl [From Phenergan] Allergy (Mild, Verified 11/06/20 11:35) Generalized Itching amoxicillin [Amoxicillin] Allergy (Verified 11/06/20 11:35) Generalized Itching Past Medical History - Social History Family history: Reviewed & Not Pertinent Neurological Medical History: Reports: Hx Migraine, Hx Seizures - pseudoseizures Renal/ Medical History: Reports: Hx Kidney Stones, Hx Ovarian Cysts - 06/2013. Denies: Hx Peritoneal Dialysis GI Medical History: Reports: Hx Gastroesophageal Reflux Disease, Hx Irritable Bowel Musculoskeltal Medical History: Reports Hx Fibromyalgia Psychiatric Medical History: Reports: Hx Anxiety, Hx Depression, Hx Post Traumatic Stress Disorder - severe panic disorder Past Surgical History: Reports: Hx Abdominal Surgery, Hx Section - x2, Hx Cholecystectomy - 2010, Hx Hysterectomy, Hx Kidney (Renal Surgery) - nephrostomy tube, Hx Tonsillectomy - 13 yo - Immunizations Immunizations up to date: Yes Hx Diphtheria, Pertussis, Tetanus Vaccination: Yes Physical Exam - Vital signs Vitals: Temp Pulse Resp BP Pulse Ox 98.4 F 120 H 20 140/83 H 100 11/06/20 11:18 11/06/20 11:18 11/06/20 11:18 11/06/20 11:18 11/06/20 11:18 Course - Vital Signs Vital signs: Temp Pulse Resp BP Pulse Ox 98.4 F 120 H 20 140/83 H 100 11/06/20 11:18 11/06/20 11:18 11/06/20 11:18 11/06/20 11:18 11/06/20 11:18 Doctor's Discharge - Discharge Referrals: RAND DUBOSE DO [Primary Care Provider] - Follow up as needed
--- NOTE | 2020-11-06 12:26 | RADIOLOGY REPORT (SQ) ---
EXAM DESCRIPTION: CHEST SINGLE VIEW IMAGES COMPLETED DATE/TIME: 11/06/2020 12:11 pm REASON FOR STUDY: intermittent chest pain COMPARISON: None. NUMBER OF VIEWS: One view. TECHNIQUE: Single frontal radiographic view of the chest acquired. LIMITATIONS: None. FINDINGS: LUNGS AND PLEURA: No opacities, masses or pneumothorax. No pleural effusion. MEDIASTINUM AND HILAR STRUCTURES: No masses. Contour normal. HEART AND VASCULAR STRUCTURES: Heart normal in size. Normal vasculature. BONES: No acute findings. HARDWARE: None in the chest. OTHER: No other significant finding. IMPRESSION: NO SIGNIFICANT RADIOGRAPHIC FINDING IN THE CHEST. TECHNICAL DOCUMENTATION: JOB ID: [id number] 2010 [employer]- All Rights Reserved Reading location - IP/workstation name: [email or web address]
[2020-11-06 13:14] LABS: AMORPHOUS SEDIMENT,URINE TRACE /HPF; APPEARANCE,URINE CLEAR; BILIRUBIN,URINE NEGATIVE (NEGATIVE); COLOR,URINE YELLOW; GLUCOSE, URINE NEGATIVE (NEGATIVE); KETONES,URINE NEGATIVE (NEGATIVE); LEUKOCYTE ESTERASE,URINE NEGATIVE (NEGATIVE); NITRITE,URINE NEGATIVE (NEGATIVE); PROTEIN,URINE NEGATIVE (NEGATIVE); UROBILINOGEN,URINE NEGATIVE mg/dL (<2.0)
[2020-11-06] MEDS ORDERED: NORMAL SALINE 500 ML IV ONE (13:35)
--- NOTE | 2020-11-06 13:41 | ER Document Report ---
ED General - General Chief Complaint: Shortness Of Breath Stated Complaint: SHORTNESS OF BREATH Time Seen by Provider: 11/06/20 11:35 Primary Care Provider: RAND DOMINGUEZ DO [Primary Care Provider] - Follow up as needed TRAVEL OUTSIDE OF THE [place] IN LAST 30 DAYS: No - HPI Notes: Patient is a 30-year-old female presents emergency department for evaluation of shortness of breath, loss of taste, and "feeling disoriented." She has been short of breath for about the last month. She saw her primary care provider who put her on steroids, but she states it really did not seem to help. She is more short of breath at night. She has a history of seasonal asthma as well. She d enies any chest pain to me. She states that over the last 48 hours she has lost her sense of smell. She does have some nausea. She states she has some posterior neck pain. She denies any fevers or chills. No vomiting. No diarrhea. She states to me that she "feels dehydrated." In regards to her feeling disoriented, she states that her throat feels numb and she is feeling like she cannot really swallow correctly. She just "feels confused." She cannot elaborate for me any further. - Related Data Allergies/Adverse Reactions: nitrofurantoin [From Macrobid] Allergy (Mild, Verified 11/06/20 11:35) Generalized Itching nitrofurantoin macrocrystalline [From Macrobid] Allergy (Mild, Verified 11/06/20 11:35) Generalized Itching Penicillins Allergy (Mild, Verified 11/06/20 11:35) Generalized Itching promethazine HCl [From Phenergan] Allergy (Mild, Verified 11/06/20 11:35) Generalized Itching amoxicillin [Amoxicillin] Allergy (Verified 11/06/20 11:35) Generalized Itching Home Medications: emgality. dexamethasone. quetiapine. prednisone. ventolin. clonazepam. desvenlafaxine succ. topiramate. vyvanse. clonidine Past Medical History - General Information source: Patient - Social History Smoking Status: Current Every Day Smoker Chew tobacco use (# tins/day): No Frequency of alcohol use: None Drug Abuse: None Family History: Reviewed & Not Pertinent Patient has homicidal ideation: No - Medical History Medical History: Other - Systemic lupus Neurological Medical History: Reports: Hx Migraine, Hx Seizures - pseudoseizures Renal/ Medical History: Reports: Hx Kidney Stones, Hx Ovarian Cysts - 06/2013. Denies: Hx Peritoneal Dialysis GI Medical History: Reports: Hx Gastroesophageal Reflux Disease, Hx Irritable Bowel Musculoskeletal Medical History: Reports Hx Fibromyalgia Psychiatric Medical History: Reports: Hx Anxiety, Hx Depression, Hx Post Traumatic Stress Disorder - severe panic disorder Past Surgical History: Reports: Hx Abdominal Surgery, Hx Section - x2, Hx Cholecystectomy - 2010, Hx Hysterectomy, Hx Kidney (Renal Surgery) - nephrostomy tube, Hx Tonsillectomy - 13 yo - Immunizations Immunizations up to date: Yes Hx Diphtheria, Pertussis, Tetanus Vaccination: Yes Hx Pneumococcal Vaccination: 11/23/09 Review of Systems - Review of Systems Constitutional: No symptoms reported EENT: See HPI Cardiovascular: No symptoms reported Respiratory: See HPI Gastrointestinal: See HPI Genitourinary: No symptoms reported Musculoskeletal: No symptoms reported Skin: No symptoms reported Neurological/Psychological: See HPI Physical Exam - Vital signs Vitals: Temp Pulse Resp BP Pulse Ox 98.4 F 120 H 20 140/83 H 100 11/06/20 11:18 11/06/20 11:18 11/06/20 11:18 11/06/20 11:18 11/06/20 11:18 - Notes Notes: Vital signs reviewed, please refer to chart. Head is normocephalic, atraumatic. Pupils equal round, reactive to light. Oral mucosa is moist. Pharynx is without erythema or exudate. Neck is supple without meningismus. Heart is regular rate and rhythm. Lungs are clear to auscultation bilaterally. Abdomen is soft, nontender, normoactive bowel sounds throughout. Extremities without cyanosis, clubbing. Posterior calves are nontender. Peripheral pulses are equal. Skin is warm and dry. Patient is awake, alert, oriented x3. Cranial nerves II - XII are grossly intact without focal neurological deficits. Strength is plus 5 out of 5 bilateral upper and lower extremities. Sensation is intact. Reflexes symmetrical. Intact [id number], rapid alternating movements, [id number]. Course - Re-evaluation Re-evalutation: 11/06/20 13:40 Patient presents emergency department for evaluation. She was initially seen through triage. She had labs ordered, and I explained to the patient that I could order a Covid test as well. I do not have a strong suspicion for any other significant etiology at this time. She was tachycardic on arrival, but this is not a new problem for her. At the time of her EKG her heart rate was normal. She is oxygenating 100% on room air. Her symptoms have been present for some time. She requested the blood work, states she "feels dehydrated." EKG is unremarkable. Chest x-ray unremarkable. We will continue to monitor. 11/06/20 16:11 Patient remained stable. She has no significantly abnormal labs at this time. Her chest x-ray is unremarkable. I will been discharged her to home. She will be treated as a PUI, is given information in regards to quarantining and close follow-up. She voiced understanding. She is to return to the ED with worsening or new concerning symptoms of any sort. - Vital Signs Vital signs: Temp Pulse Resp BP Pulse Ox 98.4 F 74 18 121/86 H 100 11/06/20 11:35 11/06/20 16:25 11/06/20 16:25 11/06/20 16:25 11/06/20 16:25 - Laboratory Results Result Diagrams: 11/06/20 14:15 11/06/20 14:15 Laboratory Results Interpreted: 11/06/20 14:15 WBC 13.3 H MCV 98 H MCH 33.8 H Absolute Neuts (auto) 9.0 H Critical Laboratory Results Reviewed: No Critical Results - Radiology Results Radiology Results Interpreted: 11/06/20 13:41 Chest X-Ray 11/06/20 11:41 IMPRESSION: NO SIGNIFICANT RADIOGRAPHIC FINDING IN THE CHEST. Critical Radiology Results Reviewed: No Critical Results - EKG Interpretation by Me Additional EKG results interpreted by me: 11/06/20 13:41 Sinus mechanism with rate of 92 bpm. Normal axis and intervals. No acute ST changes concerning for ischemia or infarction. No change from prior study with the exception of rate which is now normal, she was tachycardic in the past. Discharge - Discharge Clinical Impression: Person under investigation for COVID-19 Dyspnea Qualifiers: Dyspnea type: shortness of breath Qualified Code(s): R06.02 - Shortness of breath Condition: Stable Disposition: HOME, SELF-CARE Instructions: COVID-19 Guidance for Persons Under Investigation, Dyspnea, Nonspecific ([facility]) Additional Instructions: Your chest x-ray, electrolytes, liver functions, kidney functions, thyroid functions were all unremarkable today. Please follow-up with your primary care provider next week. You are at this point a person under investigation for COVID-19. Please quarantine at home. You will be contacted with results in the next 48 to 96 hours. If you develop increased difficulty breathing, or any other new or concerning symptoms, please return immediately to the emergency department for evaluation. Referrals: RAND DOMINGUEZ DO [Primary Care Provider] - Follow up as needed
--- NOTE | 2020-11-06 14:19 | EKG REPORT ---
SEVERITY:- NORMAL ECG - SINUS RHYTHM : Confirmed by: Bre Ward MD 06-Nov-2020 14:19:11
[2020-11-06 14:52] LABS: ABSOLUTE EOSINOPHILS # (AUTO) 0.2 10^3/uL (0.0-0.6); ABSOLUTE LYMPHOCYTES (AUTO) 3.5 10^3/uL (0.5-4.7); ABSOLUTE MONOCYTES (AUTO) 0.6 10^3/uL (0.1-1.4); BASOPHILS % (AUTO) 0.2 % (0-2); EOSINOPHILS % (AUTO) 1.2 % (0-6); HEMATOCRIT 44.1 % (36.0-47.0); HEMOGLOBIN 15.2 g/dL (12.0-15.5); LYMPHOCYTES % (AUTO) 26.3 % (13-45); MEAN CORPUSCULAR HEMOGLOBIN 33.8 pg (27.0-33.4); MEAN CORPUSCULAR HGB CONC 34.5 g/dL (32.0-36.0); MEAN CORPUSCULAR VOLUME 98 fl (80-97); MONOCYTES % (AUTO) 4.7 % (3-13); PLATELET COUNT 353 10^3/uL (150-450); RED CELL DISTRIBUTION WIDTH 13.3 % (11.5-14.0); SEGMENTED NEUTROPHILS % (AUTO) 67.6 % (42-78); TOTAL CELLS COUNTED % (AUTO) 100 %; WHITE BLOOD COUNT 13.3 10^3/uL (4.0-10.5)
[2020-11-06 15:18] LABS: ALBUMIN 4.3 g/dL (3.5-5.0); ALKALINE PHOSPHATASE 76 U/L (38-126); ANION GAP 7 (5-19); ASPARTATE AMINO TRANSFERASE 26 U/L (14-36); BILIRUBIN,DIRECT 0.2 mg/dL (0.0-0.4); BILIRUBIN,TOTAL 0.4 mg/dL (0.2-1.3); BLOOD UREA NITROGEN 13 mg/dL (7-20); CALCIUM 9.2 mg/dL (8.4-10.2); CARBON DIOXIDE 28 mmol/L (22-30); CHLORIDE 104 mmol/L (98-107); GLUCOSE 87 mg/dL (75-110); POTASSIUM 4.1 mmol/L (3.6-5.0); TOTAL PROTEIN 7.1 g/dL (6.3-8.2)
[2020-11-06 16:26] VITALS: BP 121/86
== END 2020-11-06 16:26 | disposition home or self-care (01) ==
LOC: ER 11:13
DX: R06.02 Shortness of breath (principal); R07.9 Chest pain, unspecified; F17.200 Nicotine dependence, unspecified, uncomplicated; Z20.828 Contact with and (suspected) exposure to other viral communicable diseases; Z90.49 Acquired absence of other specified parts of digestive tract; Z90.710 Acquired absence of both cervix and uterus; Z88.0 Allergy status to penicillin
CPT/HCPCS: 93005; 99285; 36415; 83735; 84443; 85025; 81025; 80053; 81001; 84484; 71045; 93010; U0003; J7040; C9803; 87635